=== PATIENT | male | born 1940 | race Caucasian/White ===

== ENCOUNTER 2016-05-25 | Emergency (ER) | payer MEDICARE ==
--- NOTE | 2016-05-25 09:35 | ED.PDOC ---
History of Present Illness - General Chief Complaint: Respiratory Problem Stated Complaint: chest congestion Time Seen by Provider: 05/25/16 08:55 Source: patient, RN notes reviewed, Vital Signs reviewed Exam Limitations: no limitations Additional Information: Cough congestion 3 weeks ago seen md rx antibiotics /cough medication not bettet. - History of Present Illness Timing/Duration: other - 3 weeks ago Cough Quality/Degree: dry cough Possible Cause: no prior episodes Improving Factors: nothing Worsening Factors: nothing Associated Symptoms: lightheadedness - during cough episodes Allergies/Adverse Reactions: Allergies Cephalosporins Allergy (Severe, Verified 07/26/14 13:14) Codeine Allergy (Severe, Verified 07/26/14 13:14) Penicillins Allergy (Severe, Verified 07/26/14 13:14) Home Medications: Ambulatory Orders Allopurinol [Zyloprim] 300 mg PO BID 09/27/12 Citalopram Hydrobromide 40 mg PO DAILY 09/27/12 Gabapentin 600 mg PO BID 09/27/12 Metoprolol Tartrate 25 mg PO DAILY 09/27/12 Omeprazole 20 mg PO BID 09/27/12 Tramadol HCl 50 mg PO BEDTIME 09/27/12 Chlorpheniramine Maleate [Chlor-Trimeton] 4 mg PO PRN PRN 04/20/16 Cholecalciferol [Vitamin D3] 1,000 unit PO DAILY 04/20/16 Diphenhydramine HCl [Benadryl] 25 mg PO PRN PRN 04/20/16 Gabapentin 900 mg PO BEDTIME 04/20/16 Ibuprofen 200 mg PO PRN PRN 04/20/16 Nabumetone 750 mg PO BID 04/20/16 Naproxen Sodium 220 mg PO PRN PRN 04/20/16 Potassium Gluconate 595 mg PO DAILY 04/20/16 Review of Systems - Review of Systems Constitutional: States: no symptoms reported EENTM: States: see HPI Respiratory: States: see HPI Cardiology: States: no symptoms reported Gastrointestinal/Abdominal: States: no symptoms reported Genitourinary: States: no symptoms reported Musculoskeletal: States: no symptoms reported Skin: States: no symptoms reported Neurological: States: no symptoms reported Past Medical History (General) - Patient Medical History Hx Congestive Heart Failure: No Hx Hypertension: Yes Hx Diabetes: No Hx Gastroesophageal Reflux: Yes Hx Cancer: No Hx Hepatitis C: No Hx MRSA: No Surgical History: appendectomy - Vaccination History Hx Tetanus, Diphtheria Vaccination: Yes Hx Influenza Vaccination: Yes Hx Pneumococcal Vaccination: Yes Immunizations Up to Date: Yes - Social History Hx Alcohol Use: Yes - daily/whisky Hx Substance Use: No - Female History Patient is a Female of Child Bearing Age (10 -59 yrs old): No Family Medical History - Family History Mother Family History: Unknown Hx Family Cancer: Yes - breast,esophagus Physical Exam - Physical Exam General Appearance: Alert ENT Exam: normal ENT inspection, nasal drainage Neck: non-tender, full range of motion, supple, normal inspection Respiratory: chest non-tender, lungs clear, normal breath sounds, no respiratory distress, no accessory muscle use, other - speaks in full sentences Cardiovascular/Chest: normal peripheral pulses, regular rate, rhythm, no edema, no gallop Gastrointestinal/Abdominal: normal bowel sounds, non tender, soft Extremity: normal range of motion, non-tender, normal inspection Skin Exam: normal color, warm/dry Departure - Departure Clinical Impression: Upper respiratory tract infection Time of Disposition: 09:47 Disposition: Discharge to Home or Self Care Condition: Good Departure Forms: ED Discharge - Pt. Copy, Patient Portal Self Enrollment Instructions: DI for Common Cold Referrals: Idris Espitia MD [Primary Care Provider] - 1-2 Weeks Home Medications: Ambulatory Orders Allopurinol [Zyloprim] 300 mg PO BID 09/27/12 Citalopram Hydrobromide 40 mg PO DAILY 09/27/12 Gabapentin 600 mg PO BID 09/27/12 Metoprolol Tartrate 25 mg PO DAILY 09/27/12 Omeprazole 20 mg PO BID 09/27/12 Tramadol HCl 50 mg PO BEDTIME 09/27/12 Chlorpheniramine Maleate [Chlor-Trimeton] 4 mg PO PRN PRN 04/20/16 Cholecalciferol [Vitamin D3] 1,000 unit PO DAILY 04/20/16 Diphenhydramine HCl [Benadryl] 25 mg PO PRN PRN 04/20/16 Gabapentin 900 mg PO BEDTIME 04/20/16 Ibuprofen 200 mg PO PRN PRN 04/20/16 Nabumetone 750 mg PO BID 04/20/16 Naproxen Sodium 220 mg PO PRN PRN 04/20/16 Potassium Gluconate 595 mg PO DAILY 04/20/16 Additional Instructions: RETURN TO EMERGENCY ROOM NEEDED
== END 2016-05-25 10:01 | disposition home or self-care (01) ==

== ENCOUNTER → 2016-07-08 | Outpatient (CLI) | payer MEDICARE | END | disposition home or self-care (01) | LOC: GMAH 14:57 | PROVIDERS: ATTEND Family Medicine | DX: R21 Rash and other nonspecific skin eruption (principal); I10 Essential (primary) hypertension ==

== ENCOUNTER 2016-11-27 16:06 | Observation (INO) | payer MEDICARE ==
[2016-11-27] MEDS ORDERED: SODIUM CHLORIDE 0.9% 1000ML 1,000 ML IVS ONE (16:34)
[2016-11-27] MEDS ORDERED: SODIUM CHLORIDE 0.9% (FLUSH) 10 ML SYG IV PRN ×2 (16:34→21:00)
[2016-11-27] MEDS ORDERED: PROMETHAZINE HCL INJ 12.5 MG in SODIUM CHLORIDE 0.9% 50ML 50 ML IVPB ONE (16:36)
[2016-11-27] MEDS ORDERED: MECLIZINE HCL 12.5 MG TAB PO ONE (16:36)
--- NOTE | 2016-11-27 16:39 | ED.PDOC ---
History of Present Illness - General Chief Complaint: GI Problem Stated Complaint: Nausea, vomiting Time Seen by Provider: 11/27/16 16:19 Information Source: patient, family Exam Limitations: no limitations - History of Present Illness Initial Comments: PT IS A 76 YO MALE WHO REPORTS NAUSEA, VOMITING, AND VERTIGO FOR THE PAST FEW DAYS. PT DENIES ABDOMINAL PAIN, DIARRHEA, OR CONSTIPATION. PT HAS HAD PREVIOUS EPISODES OF VERTIGO IN THE PAST. Improving Factors: immobilization, rest Worsening Factors: movement Review of Systems - Review of Systems Constitutional: States: weakness. Denies: chills, fever EENTM: Denies: blurred vision, double vision Respiratory: Denies: cough, short of breath Cardiology: Denies: chest pain, palpitations Gastrointestinal/Abdominal: States: see HPI, nausea, vomiting. Denies: constipation, diarrhea Genitourinary: Denies: dysuria, hematuria Musculoskeletal: Denies: joint pain, joint swelling Skin: Denies: change in color, lesions Neurological: Denies: headache, paresthesia Endocrine: Denies: intolerance to cold, intolerance to heat Hematologic/Lymphatic: Denies: anemia, easy bleeding Past Medical History (General) - Patient Medical History Hx Stroke: No Hx Congestive Heart Failure: No Hx Hypertension: Yes Hx Diabetes: No Hx Gastroesophageal Reflux: Yes Hx Cancer: No Hx Hepatitis C: No Hx MRSA: No Surgical History: appendectomy, other - Vaccination History Hx Tetanus, Diphtheria Vaccination: Yes Hx Influenza Vaccination: Yes - 2015 Hx Pneumococcal Vaccination: Yes - Social History Hx Tobacco Use: Yes - 04/1969 Hx Alcohol Use: Yes - daily/whisky Hx Substance Use: No Family Medical History - Family History Mother Family History: Unknown Living Status: Hx Family Cancer: Yes - breast,esophagus Physical Exam - Physical Exam General Appearance: Alert, Comfortable, No apparent distress Eyes, Ears, Nose, Throat Exam: normal ENT inspection Neck: normal inspection Respiratory: lungs clear, normal breath sounds, no respiratory distress Cardiovascular/Chest: regular rate, rhythm, no murmur Gastrointestinal/Abdominal: normal bowel sounds, non tender, soft Back Exam: normal inspection Extremity: normal range of motion, normal inspection Neurologic: alert, normal mood/affect, oriented x 3 Progress - Progress Progress: 11/27/16 17:59 PT REPORTS SOME IMPROVEMENT IN SYMPTOMS AFTER IV NS, IV PHENERGAN AND PO MECLIZINE. LAB RESULTS DISCUSSED WITH PT. PLAN TO ADMIT FOR ELECTROLYTE CORRECTION, IV ANTIEMETICS, AND IV ANTIBIOTICS. - Results/Orders Results/Orders: 11/27/16 16:34 IV Care:Saline Lock per Protoc QSHIFT Sodium Chloride 0.9% (Flush) [Saline Flush Syringe] 10 ml IV PRN PRN 11/27/16 16:51 URINE CULTURE W/COLONY COUNT Stat 11/27/16 17:48 levoFLOXacin 750MG IV [Levaquin 750MG IV] 750 mg Premix Bag 1 bag IVPB ONCE Laboratory Results - last 24 hr 11/27/16 11/27/16 11/27/16 16:34 16:34 16:35 WBC 5.3 RBC 4.17 L Hgb 14.2 Hct 41.5 L MCV 99.5 H MCH 34.0 H MCHC 34.2 RDW 14.0 Plt Count 143 MPV 7.3 L Absolute Neuts (auto) 4.10 Absolute Lymphs (auto) 0.40 L Absolute Monos (auto) 0.70 Absolute Eos (auto) 0.10 Absolute Basos (auto) 0.00 Neutrophils % 77.8 Lymphocytes % 8.0 L Monocytes % 12.5 H Eosinophils % 1.1 Basophils % 0.6 Sodium 126 L Potassium 4.3 Chloride 90 L Carbon Dioxide 28 Anion Gap 12.3 BUN 12 Creatinine 1.07 BUN/Creatinine Ratio 11.2 Random Glucose 119 H Serum Osmolality 254.3 L* Calcium 9.2 Total Bilirubin 0.9 Direct Bilirubin 0.2 Indirect Bilirubin 0.7 AST 25 ALT 22 Alkaline Phosphatase 64 Serum Total Protein 6.7 Albumin 3.7 Lipase 21 L Urine Color Urine Appearance Urine pH Ur Specific [place] Urine Protein Urine Glucose (UA) Urine Ketones Urine Blood Urine Nitrite Urine Bilirubin Urine Urobilinogen Ur Leukocyte Esterase Urine RBC Urine WBC Ur Epithelial Cells Urine Bacteria 11/27/16 16:51 WBC RBC Hgb Hct MCV MCH MCHC RDW Plt Count MPV Absolute Neuts (auto) Absolute Lymphs (auto) Absolute Monos (auto) Absolute Eos (auto) Absolute Basos (auto) Neutrophils % Lymphocytes % Monocytes % Eosinophils % Basophils % Sodium Potassium Chloride Carbon Dioxide Anion Gap BUN Creatinine BUN/Creatinine Ratio Random Glucose Serum Osmolality Calcium Total Bilirubin Direct Bilirubin Indirect Bilirubin AST ALT Alkaline Phosphatase Serum Total Protein Albumin Lipase Urine Color Yellow Urine Appearance Clear Urine pH 7.0 Ur Specific [place] 1.020 Urine Protein Trace Urine Glucose (UA) Negative Urine Ketones Negative Urine Blood Negative Urine Nitrite Negative Urine Bilirubin Negative Urine Urobilinogen 1.0 Ur Leukocyte Esterase Trace H Urine RBC 1-3 Urine WBC 20-30 H Ur Epithelial Cells 0-1 Urine Bacteria 1+ Departure - Departure Clinical Impression: Urinary tract infection, Nausea & vomiting, Vertigo, Hyponatremia with decreased serum osmolality Time of Disposition: 18:02 Disposition: Admit Patient Condition: Fair Departure Forms: ED Discharge - Pt. Copy, Patient Portal Self Enrollment Referrals: Idris Espitia MD [Primary Care Provider] - 1-2 Weeks Home Medications: Ambulatory Orders Allopurinol [Zyloprim] 600 mg PO DAILY 09/27/12 Citalopram Hydrobromide 40 mg PO DAILY 09/27/12 Gabapentin 600 mg PO BID 09/27/12 Metoprolol Tartrate 50 mg PO DAILY 09/27/12 Omeprazole 20 mg PO BID 09/27/12 Chlorpheniramine Maleate [Chlor-Trimeton] 4 mg PO PRN PRN 04/20/16 Cholecalciferol [Vitamin D3] 1,000 unit PO DAILY 04/20/16 Diphenhydramine HCl [Benadryl] 25 mg PO PRN PRN 04/20/16 Gabapentin 600 mg PO ,12 04/20/16 Ibuprofen 200 mg PO TID PRN 04/20/16 Nabumetone 750 mg PO BID 04/20/16 Naproxen Sodium 220 mg PO DAILY 04/20/16 Albuterol Sulfate Nebs [Proventil Nebs] 2.5 mg INH QID PRN 11/27/16 Gabapentin 900 mg PO BEDTIME 11/27/16 Potassium Chloride [K-Tab] 8 meq PO DAILY 11/27/16 Decision To Admit - Decistion To Admit Decision to Admit Reason: Admit from ER Decision to Admit Date: 11/27/16 Decision to Admit Time: 18:02
[2016-11-27] MEDS ORDERED: PROMETHAZINE HCL INJ 25 MG/ML VIAL ONE (16:43)
[2016-11-27] MEDS ORDERED: SODIUM CHLORIDE 0.9% 50ML 50 ML ONE (16:44)
[2016-11-27] MEDS ORDERED: levoFLOXacin 750MG IV 750 MG in PREMIX BAG 1 BAG IVPB ONE (17:48)
--- NOTE | 2016-11-27 20:28 | HP ---
SUPERVISING PHYSICIAN: Sulaiman Morgan MD CHIEF COMPLAINT: Nausea and vomiting. HISTORY OF PRESENT ILLNESS: Mr. Hartley is a 76 year-old male patient who presented to the Emergency Department complaining of nausea and vomiting and vertigo for the last several days. He notes he has been having some dizziness on and off for the last month. He denied any abdominal pain, diarrhea or constipation. Laboratory studies were completed and white count was 5.3 with hemoglobin of 14.2 and hematocrit 41.5 with a platelet count of 143 ,000, differential within normal limits. Chemistries showed a moderate hyponatremia with a sodium of 126, potassium normal, serum osmolality 254. Liver functions showed to be within normal limits. Lipase was 21. Urinalysis showed 1+ bacteria on microscopic with 20 to 30 WBCs, 0 to 1 epithelioid with trace of leukoesterase on dipstick. The patient was given Meclizine and Phenergan for his nausea and dizziness and given that he had an obvious urinary tract infection he was started on Levaquin after which he was started on normal saline for replacement of his sodium. Dr. Bishop requested the patient be placed in observation overnight for close monitoring and continued treatment of the hyponatremia as well as neurological checks given that he was having some dizziness on admission. The patient was placed in observation in stable condition. PAST MEDICAL HISTORY: 1. Asthma. 2. Chronic lower back pain. 3. Depression. 4. Hypertension. 5. Benign prostatic hypertrophy. 6. History of alcoholism in the past. PAST SURGICAL HISTORY: 1. Appendectomy. 2. Hemorrhoidectomy. 3. Transurethral resection of the prostate.. 4. Right rotator cuff repair. 5. Lower and upper back surgeries. 6. Right knee replacement. CURRENT MEDICATIONS: Please see updated list of verified medications but on admission the patient's list of medications included: 1. Toprol-XL 50 mg daily. 2. Tramadol 50 mg every 6 hours p.r.n.. 3. Zocor 20 mg at bedtime. 4. Gabapentin 600 mg twice a day. 5. Potassium chloride 8 mEq daily. 6. Naprosyn 320 mg daily. 7. Gabapentin 900 mg at bedtime. 8. Albuterol nebulizer 2.5 mg inhaled q.i.d. as needed. 9. Citalopram; 40 mg daily. 10. Vitamin D3, 1000 units daily. 11. Benadryl 25 mg as needed. 12. Crotamiton 4 mg as needed. 13. Allopurinol 600 mg daily. 14. Nabumetone 750 mg twice a day. 15. Ibuprofen 200 mg daily. 16. Omeprazole 20 mg daily. 17. Lisinopril 20 mg daily. 18. Chlorthalidone 25 mg daily. ALLERGIES: CEPHALOSPORIN, CODEINE, PENICILLINS, TETANUS TOXOID FAMILY HISTORY: Father and mother at age 94, father with complications of Alzheimer's, mother from skin cancers and complications of breast cancer. SOCIAL HISTORY: The patient was a smoker but quit in 1968. He notes that he has had a history of alcoholism in the past and currently does drink but not every day. He apparently drinks 2 drinks of history when he does, at least 3 days a week. 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 He lives in [place] and is . REVIEW OF SYSTEMS: CONSTITUTIONAL: Notes he has had some weakness but denies fevers, chills. HEENT: Denies any recent blurred vision, double vision, significant headaches. RESPIRATORY: History of asthma and some shortness of breath but no cough or worsening of his asthma. He has had some exertional dyspnea that has been followed by Dr. Berg. CARDIOVASCULAR: Denies any chest pain or palpitations. GASTROINTESTINAL: As noted in history of present illness, nausea and vomiting but denies constipation or diarrhea. GENITOURINARY: Denies dysuria or hematuria. NEUROLOGICAL: Denies any headaches or paresthesia but as per history of present illness has been having some vertigo with position changes. PHYSICAL EXAMINATION: VITAL SIGNS: Blood pressure 158/83, respirations 18, saturation 95% on room air. Afebrile at 98.8 with pulse of 73. Admission weight 97.5 kg. GENERAL: The patient appears to be comfortable and in no acute distress. He is alert and oriented x3. HEENT: Right tympanic membrane is occluded by cerumen. Left tympanic membrane is clear. Oropharynx is pink and moist without any lesions. NECK: Supple, full range of motion. No jugular venous distention.. Non-tender. CARDIOVASCULAR: Regular rate and rhythm without any appreciable murmurs, rubs , or gallops. ABDOMEN: Non-tender, partial small-bowels but obese. EXTREMITIES: No cyanosis, clubbing, or edema. NEUROLOGIC: He is alert and oriented x3. Facial features are symmetrical. Extraocular movements are within normal limits. There is no notable nystagmus. There is no discernible localized neuromotor deficits. LABORATORY: CBC showed a white count of 5.3 with hemoglobin of 14.2, hematocrit 41.5, platelet count 143,000, differential showed to be within normal limits Chemistries showed a hyponatremia with a sodium of 126, potassium 4.3, BUN 12, creatinine 1.07, glucose 119, osmolality 254, calcium 9.2. Liver functions showed to be within normal limits. Lipase within normal limits at 21. Urinalysis showed trace of leukoesterase on dipstick with microscopic revealing 1 to 3 RBCs, 20 to 30 WBCs with 1 epithelial cell and 1+ bacteria. MICROBIOLOGY: Urine culture, clean-cut specimen is pending. RADIOLOGY: There are no radiographic studies for review on admission. ASSESSMENT: 1. Nausea and vomiting secondary to vertigo with patient having chronic problems with ongoing dizziness and vertigo being followed by Dr. Espitia, his primary care physician, as well as Dr. Berg with Cardiology. Possibly gets some exacerbation from hyponatremia and underlying urinary tract infection. 2. Urinary tract infection with culture pending, possibly contributing to some nausea and vomiting. 3. Hyponatremia, moderate, secondary to nausea and vomiting with some contributing factors to oral medication regimen with Chlorthalidone with a low serum osmolality. 4. Hypertension. 5. History of benign prostatic hypertrophy having previously had a transurethral resection of prostate with no significant history of previous urinary tract infection. 6. History of asthma, currently on bronchodilator therapy with albuterol. 7. Chronic pruritus, unknown etiology and currently followed by dermatology through Dr. Espitia's office. . 8. Major depressive disorder on antidepressants. 9. History of alcoholism with patient admitting to drinking at least 3 days a week. PLAN: The patient will be placed in observation tonight for treatment of underlying hyponatremia and initiation of antibiotic therapy for the urinary tract infection with cultures pending. He was given Levaquin initially in the Emergency Department as he is allergic to cephalosporins and penicillins. We will continue with antibiotic therapy pending final culture results in anticipation of discharging tomorrow if clinically stable. In regards to the hyponatremia, he did receive normal saline in the Emergency Department and this will be continued tonight with some potassium with close monitoring and neurological checks every 6 hours and repeat laboratory studies in the morning to include CBC and BMP. Anticipate discharge tomorrow after repeat laboratory studies and further clinical evaluation. Once the patient is clinically stable he will need close clinical followup with Dr. Espitia in regards to the ongoing vertigo and possible medication regimen modification as he does take Chlorthalidone which could be contributing to his hyponatremia. In regards to his dizziness, we will treat this with meclizine and his nausea with Phenergan and Zofran as needed. Again, anticipate discharge tomorrow. Until then, we will continue to monitor the patient closely and treat appropriately. #[id number] MTDD
[2016-11-27] MEDS ORDERED: IV SET AND CAP CHANGE INJ INJ SCH (21:00)
[2016-11-27] MEDS ORDERED: MECLIZINE HCL 12.5 MG TAB PO PRN (21:03)
[2016-11-27] MEDS ORDERED: KCL 20 MEQ/NS 1,000 ML IVS PRN (21:05)
[2016-11-27] MEDS ORDERED: ACETAMINOPHEN 325 MG TAB PO PRN (21:05)
[2016-11-27] MEDS ORDERED: ALBUTEROL SULFATE 2.5 MG/3 ML VIAL NEB PRN (21:06)
[2016-11-27] MEDS ORDERED: OMEPRAZOLE CAP 20 MG CAP PO SCH (21:30)
[2016-11-27] MEDS ORDERED: GABAPENTIN 300 MG CAP PO SCH (21:30)
[2016-11-27] MEDS: NABUMETONE 750 MG PO SCH (21:41)
[2016-11-27] MEDS: NAPROXEN SODIUM 220 MG TAB PO SCH (21:51)
[2016-11-27] MEDS ORDERED: diphenhydrAMINE HCL 25 MG CAP PO PRN ×2 (23:23→23:31)
[2016-11-27] MEDS ORDERED: traMADol HCL 50 MG TAB PO PRN (23:23)
[2016-11-27] MEDS ORDERED: tiZANidine 4 MG TAB ONE (23:48)
[2016-11-28 05:48] VITALS: TEMP 97.6
[2016-11-28] MEDS ORDERED: CHOLECALCIFEROL 2,000 IU TAB PO ONE (07:54)
[2016-11-28] MEDS ORDERED: levoFLOXacin 500MG IV 100 ML IVPB ONE (07:56)
[2016-11-28] MEDS ORDERED: GABAPENTIN 300 MG CAP PO SCH ×2 (08:00→21:00)
[2016-11-28] MEDS ORDERED: POTASSIUM CHLORIDE 8 MEQ TAB PO SCH (08:00)
[2016-11-28] MEDS ORDERED: METOPROLOL TARTRATE 50 MG TAB PO SCH (08:00)
[2016-11-28] MEDS ORDERED: IBUPROFEN 200 MG TAB PO PRN (08:30)
[2016-11-28] MEDS: NABUMETONE 750 MG PO SCH (08:51)
[2016-11-28] MEDS: NAPROXEN SODIUM 220 MG TAB PO SCH (08:52)
[2016-11-28] MEDS ORDERED: ALLOPURINOL 300 MG TAB PO SCH (09:00)
[2016-11-28] MEDS ORDERED: CHOLECALCIFEROL 2,000 IU TAB PO SCH (09:00)
[2016-11-28] MEDS ORDERED: CITALOPRAM HBR 20 MG TAB PO SCH (09:00)
[2016-11-28] MEDS ORDERED: levoFLOXacin 500MG IV 500 MG in PREMIX BAG 1 BAG IVPB SCH (09:30)
[2016-11-28 11:31] VITALS: BP 154/72; O2SAT 98
[2016-11-28] MEDS ORDERED: OMEPRAZOLE CAP 20 MG CAP PO SCH (17:00)
[2016-11-28] MEDS ORDERED: SIMVASTATIN 20 MG TAB PO SCH (21:00)
[2016-11-28] MEDS ORDERED: ENOXAPARIN SODIUM 40 MG/0.4 ML SYG SUBCU SCH (21:09)
--- NOTE | 2016-11-29 20:50 | DS ---
SUPERVISING PHYSICIAN: Sulaiman Morgan M.D. DISCHARGE DIAGNOSIS: 1. Nausea and vomiting secondary to vertigo with patient having chronic problems with ongoing dizziness and vertigo being followed by Dr. Espitia, his primary care physician, as well as Dr. Berg with Cardiology. Possibly gets some exacerbation from hyponatremia and underlying urinary tract infection. 2. Urinary tract infection with culture pending, possibly contributing to some nausea and vomiting. 3. Hyponatremia, moderate, secondary to nausea and vomiting with some contributing factors to oral medication regimen with Chlorthalidone with a low serum osmolality. 4. Hypertension. 5. History of benign prostatic hypertrophy having previously had a transurethral resection of prostate with no significant history of previous urinary tract infection. 6. History of asthma, currently on bronchodilator therapy with albuterol. 7. Chronic pruritus, unknown etiology and currently followed by dermatology through Dr. Espitia's office. . 8. Major depressive disorder on antidepressants. 9. History of alcoholism with patient admitting to drinking at least 3 days a week. HISTORY OF PRESENT ILLNESS: Mr. Hartley is a 76 year-old male patient who presented to the Emergency Department complaining of nausea and vomiting and vertigo for the last several days. He notes he has been having some dizziness on and off for the last month. He denied any abdominal pain, diarrhea or constipation. Laboratory studies were completed and white count was 5.3 with hemoglobin of 14.2 and hematocrit 41.5 with a platelet count of 143 ,000, differential within normal limits. Chemistries showed a moderate hyponatremia with a sodium of 126, potassium normal, serum osmolality 254. Liver functions showed to be within normal limits. Lipase was 21. Urinalysis showed 1+ bacteria on microscopic with 20 to 30 WBCs, 0 to 1 epithelioid with trace of leukocyte esterase on dipstick. The patient was given Meclizine and Phenergan for his nausea and dizziness and given that he had an obvious urinary tract infection he was started on Levaquin after which he was started on normal saline for replacement of his sodium. Dr. Bishop requested the patient be placed in observation overnight for close monitoring and continued treatment of the hyponatremia as well as frequent neurological checks given that he was having some dizziness on admission. The patient was placed in observation in stable condition. LABORATORY: White count on admission was 5.3, at discharge was 4.8. Hemoglobin and hematocrit were stable at 13.0 and 38.0. Platelet count at discharge was 117,000. Differential showed to be within normal limits. Chemistries on admission showed low sodium at 126, after IV fluids it had increased only slightly but the patient was asymptomatic with sodium at 127 at discharge. Potassium was 4.3. BUN was 10, creatinine 0.95, serum osmolality remained low at 254.3, calcium was normal at 8.8. Albumin was normal at 3.7. Liver functions all showed to be within normal limits. Lipase was within normal limits at 21. Urinalysis microscopically revealed 1 to 3 RBCs, 20 WBCs, zero epithelials with 1+ bacteria. MICROBIOLOGY: Urine culture is pending at discharge with the patient having been placed on continued Levaquin at discharge. RADIOLOGY: There were no radiographic studies completed on admission. HOSPITAL COURSE: Mr. Hartley was placed in Observation as noted in his History of Present Illness for hyponatremia, dizziness and possibly underlying urinary tract infection. He was started on Levaquin and was given 2 doses. He had no recurrence of his nausea or vomiting or dizziness after initiation of IV therapy. He felt clinically well enough to continue with outpatient treatment plan and to have close clinical followup with Dr. Espitia. PLAN: Mr. Hartley was discharged on 11/28/16 with instructions to followup with Dr. Espitia in the clinic, and to call Dr. Espitia's office on Wednesday to schedule an appointment. He is to restrict his fluids daily to less than 1800 mL per 24 hours period until he was seen in followup with Dr. Espitia. He will need a repeat BMP to recheck his sodium level as well as close followup in regards to treatment of possible underlying urinary tract infection as at discharge his cultures were pending. He was told to hold his Chlorthalidone, his diuretic, which could result in hyponatremia until he was seen in followup. He was instructed to try to limit daily alcohol consumption, if not stop altogether, and to take his antibiotics as directed starting on 11/29/16. He was cautioned to use slow movements when changing positions to prevent vertigo, dizziness and possible falls. He is to return to the hospital if his condition failed to improve or other concerning symptoms. At discharge, new prescriptions included: 1. Levaquin 500 mg, #5, no refills. Diet at discharge is regular diet as tolerated. Activity again as tolerated. Use caution when changing positions as he was continuing to have some dizziness. Condition at discharge was stable and improved. #[id number] TSDM
== END 2016-11-28 11:15 | disposition home or self-care (01) ==
LOC: ER 16:06 → MS 20:15
PROVIDERS: ADMIT Nurse Practitioner Family; ATTEND Nurse Practitioner Family
DX: E87.1 Hypo-osmolality and hyponatremia (principal); N39.0 Urinary tract infection, site not specified; R11.2 Nausea with vomiting, unspecified; R42 Dizziness and giddiness; I10 Essential (primary) hypertension; N40.0 Benign prostatic hyperplasia without lower urinary tract symptoms; J45.909 Unspecified asthma, uncomplicated; L29.9 Pruritus, unspecified; F32.9 Major depressive disorder, single episode, unspecified; F10.20 Alcohol dependence, uncomplicated; G89.29 Other chronic pain; M54.5 Low back pain; Z79.1 Long term (current) use of non-steroidal anti-inflammatories (NSAID); Z79.899 Other long term (current) drug therapy; Z88.0 Allergy status to penicillin; Z88.3 Allergy status to other anti-infective agents; Z88.6 Allergy status to analgesic agent; Z88.7 Allergy status to serum and vaccine; Z90.49 Acquired absence of other specified parts of digestive tract; Z96.651 Presence of right artificial knee joint; Z81.8 Family history of other mental and behavioral disorders; Z80.3 Family history of malignant neoplasm of breast; Z80.8 Family history of malignant neoplasm of other organs or systems
CPT/HCPCS: 36415 ×2; 80048 ×2; 80076; 81001; 83690; 85025 ×2; 87086; 94760; 96361; 96365; 96366; 96367; 96376; 97116; 97162; 99284; A4216; G0378; G8978; G8979; G8980; J1956 ×2; J2550; J3480; J7030; Q0163

== ENCOUNTER → 2017-03-01 | Outpatient (CLI) | payer MEDICARE ==
--- NOTE | 2017-03-01 11:13 | US ---
Study: Bilateral Carotid Artery Doppler Sonogram. Indication: VERTIGO Technique: Multiplanar grayscale and Doppler sonographic images of the bilateral carotid arteries and vertebral arteries were obtained. Findings: The bilateral carotid arteries demonstrate mild intimal thickening and calcified plaque. Analysis of duplex waveforms and flow velocities indicate no hemodynamically significant stenosis. The vertebral arteries demonstrate antegrade flow. Impression: Mild atherosclerosis of the bilateral carotid arteries without hemodynamically significant stenosis. Electronically signed by: Edgardo Hernandez MD 03/01/2017 11:12 AM CDT
== END | disposition home or self-care (01) ==
LOC: US 08:15
PROVIDERS: ATTEND Family Medicine
DX: H81.49 Vertigo of central origin, unspecified ear (principal)

== ENCOUNTER → 2017-04-12 | Outpatient (CLI) | payer MEDICARE ==
--- NOTE | 2017-04-12 18:44 | RAD ---
EXAM DESCRIPTION: Knee,Left Complete CLINICAL HISTORY: KNEE PAIN COMPARISON: March 19, 2016 FINDINGS: 4 standing views of the left knee show moderate narrowing of the medial tibiofemoral compartment with mild joint line osteophytes that appears worsened compared to previous exam. Mild lateral tibiofemoral compartment joint line osteophytes are seen. There are mild posterior superior and inferior osteophytes of the patella. Small suprapatellar joint effusion is seen. IMPRESSION: Moderate to severe osteoarthritic changes of the left medial tibiofemoral compartment appears worsened compared to previous exam. Mild osteoarthritic changes of the lateral tibiofemoral compartment and patellofemoral compartment are seen. Small joint effusion. Electronically signed by: Finn Luna MD 04/12/2017 6:42 PM [facility]
--- NOTE | 2017-04-13 07:59 | RAD ---
EXAM DESCRIPTION: Pelvis CLINICAL HISTORY: 77 years Male, HIP PAIN COMPARISON: March 19, 2016 FINDINGS: Examination the pelvis demonstrates moderately advanced mid and lower lumbar degenerative changes with tilting of the spine towards the left. Bilateral modest hip degenerative arthropathy with slightly greater narrowing of the joint space on the right than the left is evident. No fracture or dislocation or pelvic abnormality noted. No soft tissue masses or unusual calculi noted. IMPRESSION: Moderately advanced degenerative spine disease with milder degenerative hip disease little changed from previous years study. Electronically signed by: Quoc Samaniego MD 04/13/2017 7:57 AM [facility]
== END | disposition home or self-care (01) ==
LOC: RAD 08:46
PROVIDERS: ATTEND Orthopaedic Surgery
DX: M25.562 Pain in left knee (principal); M25.552 Pain in left hip

== ENCOUNTER → 2017-04-19 | Outpatient (CLI) | payer OTHER | END | disposition home or self-care (01) | LOC: LAB.O 11:23 | PROVIDERS: ATTEND Orthopaedic Surgery | DX: Z01.818 Encounter for other preprocedural examination (principal) ==

== ENCOUNTER 2017-05-04 05:56 | Inpatient (IN) | payer OTHER ==
--- NOTE | 2017-05-03 09:19 | HP ---
CHIEF COMPLAINT: Left knee pain. HISTORY OF PRESENT ILLNESS: Mr. Hartley is a 77-year-old with a history of pain in both knees that has been going on for several years. He has had right total knee replacement. He has had knee arthroscopy as well as multiple injections on the left side, however, has failed to gain relief. Because of his ongoing pain and failure of relief with conservative measures, he has requested operative intervention. Given the degree of arthritis that he has, his only reasonable option at this point would be a total knee arthroplasty. After discussing the risks, benefits and alternatives to that, the patient has given informed consent. PAST SURGICAL HISTORY: 1. Knee arthroscopy. 2. Cervical fusion. MEDICATIONS: 1. Omeprazole. 2. Metoprolol. 3. Allopurinol. 4. Gabapentin. 5. Nabumetone. 6. Citalopram. ALLERGIES: PENICILLIN, CEPHALOSPORINS, CODEINE. CODE STATUS: Full code. IMMUNIZATIONS: Up to date. SOCIAL HISTORY: The patient does not smoke or use any illicit drugs. He does drink on occasion. FAMILY HISTORY: None pertinent to today's complaint. REVIEW OF SYSTEMS: Negative except as indicated in the History of Present Illness. PHYSICAL EXAMINATION: VITAL SIGNS: Blood pressure 109/54. Pulse 71. Height 6'. Weight 211. MENTAL STATUS: The patient is awake, alert, and is able to give a good history and participate in the physical. The patient is oriented to person, place and time. SKIN: Normal tone and turgor. HEENT: Normocephalic, atraumatic. Pupils equal, round and reactive. Mucosal membranes are moist. NECK: Normal range of motion. No thyromegaly, no lymphadenopathy. CHEST: Normal respiratory excursion. CARDIAC: Regular rate and rhythm. No murmurs, rubs or gallops. MUSCULOSKELETAL: Bilateral upper extremities show full active range of motion without pain. He has intact sensation in the extremities and they are warm and well perfused. He has no deformity and no crepitus with range of motion. The right lower extremity shows full range of motion of the hip. He has full extension of the knee and flexion to about 110 degrees. The extremity is warm and well perfused and there is no significant laxity. The left lower extremity shows full range of motion of the hip. He has full extension of the knee and flexion to about 120 degrees. He has crepitus throughout the range of motion. Sensation is intact. It is warm and well perfused. He does have severe pain with palpation along the medial joint-line as well as lateral joint-line. He does have mild effusion. IMAGING: X-rays show advanced arthritis of the knee. ASSESSMENT: 1. Osteoarthritis. PLAN: The plan at this point is for total knee arthroplasty. We have discussed the risks, benefits, and alternatives to that and the patient has given informed consent. #[id number] [facility]
[2017-05-04] MEDS ORDERED: MORPHINE SULFATE *EPIDURAL* 0.5 MG/ML VIAL ONE (06:04)
[2017-05-04] MEDS ORDERED: fentaNYL CITRATE INJ 50 MCG/ML AMP ONE (06:05)
[2017-05-04] MEDS ORDERED: LACTATED RINGERS 1,000 ML ONE ×2 (06:05→06:06)
[2017-05-04] MEDS ORDERED: MIDAZOLAM INJ 2 MG/2 ML VIAL ONE (06:05)
[2017-05-04] MEDS ORDERED: VANCOMYCIN HCL INJ 1,000 MG VIAL IVPB ONE ×3 (06:06→17:17)
[2017-05-04] MEDS ORDERED: SODIUM CHLORIDE 0.9% 250ML 250 ML ONE ×3 (06:06→17:16)
[2017-05-04] MEDS ORDERED: TRANEXAMIC ACID 1,000 MG/10 ML VIAL ONE ×2 (06:13→06:14)
[2017-05-04] MEDS ORDERED: SODIUM CHLORIDE 0.9% 100ML 100 ML IVPB ONE (06:14)
[2017-05-04] MEDS ORDERED: ACETAMINOPHEN IV 1000MG 100 ML ONE (06:23)
[2017-05-04] MEDS ORDERED: BUPIVACAINE 0.25% W/EPI 50 ML VIAL INJ ONE (06:38)
[2017-05-04] MEDS ORDERED: DEX 5% W/NACL 0.45% 1000ML 1,000 ML IVS PRN (06:44)
[2017-05-04] MEDS ORDERED: CYCLOBENZAPRINE HCL 10 MG TAB PO PRN (06:44)
[2017-05-04] MEDS ORDERED: ACETAMINOPHEN 500 MG TAB PO PRN (06:44)
[2017-05-04] MEDS ORDERED: traMADol HCL 50 MG TAB PO PRN (06:44)
[2017-05-04] MEDS ORDERED: BENZOCAINE-MENTH LOZ (CEPACOL) 1 EA LOZ MT PRN (06:44)
[2017-05-04] MEDS ORDERED: ACETAMINOPHEN 325 MG TAB PO PRN (06:44)
[2017-05-04] MEDS ORDERED: MORPHINE SULFATE INJ 10 MG/ML VIAL IM PRN (06:44)
[2017-05-04] MEDS ORDERED: ONDANSETRON INJ 4 MG/2 ML VIAL IV PRN (06:44)
[2017-05-04] MEDS ORDERED: ZOLPIDEM TARTRATE 5 MG TAB PO PRN (06:44)
[2017-05-04] MEDS ORDERED: NALOXONE HCL INJ 0.4 MG/ML VIAL IV PRN (06:44)
[2017-05-04] MEDS ORDERED: ALUMINUM & MAGNESIUM HYDROXIDE 30 ML UD PO PRN (06:44)
[2017-05-04] MEDS ORDERED: TRANEXAMIC ACID INJ 1,000 MG in SODIUM CHLORIDE 0.9% 100ML 100 ML IVPB ONE (06:44)
[2017-05-04] MEDS ORDERED: BISACODYL SUPPOSITORY 10 MG PR PRN (06:44)
[2017-05-04] MEDS ORDERED: TEMAZEPAM 15 MG CAP PO PRN (06:44)
[2017-05-04] MEDS ORDERED: MAGNESIUM HYDROXIDE 30 ML UD PO PRN (06:44)
[2017-05-04] MEDS ORDERED: PROMETHAZINE HCL INJ 12.5 MG in SODIUM CHLORIDE 0.9% 50ML 50 ML IVPB PRN (06:44)
[2017-05-04] MEDS ORDERED: MORPHINE SULFATE INJ 10 MG/ML VIAL IV PRN (06:44)
[2017-05-04] MEDS ORDERED: PROMETHAZINE HCL INJ 25 MG in SODIUM CHLORIDE 0.9% 50ML 50 ML IVPB PRN (06:44)
[2017-05-04] MEDS ORDERED: MORPHINE PCA 1 MG/ML 100ML 1 BAG in PREMIX BAG 1 BAG IVPB SCH (07:00)
[2017-05-04] MEDS ORDERED: IV SET AND CAP CHANGE INJ INJ SCH (07:00)
[2017-05-04] MEDS ORDERED: GENTAMICIN SULFATE INJ 80 MG/2 ML VIAL ONE ×3 (07:08→07:12)
[2017-05-04] MEDS ORDERED: CELECOXIB 100 MG CAP PO SCH (07:30)
[2017-05-04] MEDS ORDERED: MORPHINE PCA 1 MG/ML 100 ML BAG IVPB ONE (08:47)
[2017-05-04] MEDS ORDERED: MAGNESIUM OXIDE 400 MG TAB PO SCH (09:00)
[2017-05-04] MEDS ORDERED: LIDOCAINE 1% 10 ML VIAL INJ ONE (10:00)
[2017-05-04] MEDS ORDERED: ePHEDrine SULF 50 MG/ML IV ONE (10:00)
[2017-05-04] MEDS ORDERED: ATROPINE SULFATE 0.4 MG/ML 1ML VIAL IV ONE (10:00)
[2017-05-04] MEDS ORDERED: PROPOFOL 200 MG/20 ML VIAL IV ONE (10:00)
[2017-05-04] MEDS ORDERED: diphenhydrAMINE HCL 50 MG/ML VIAL ONE (10:17)
[2017-05-04] MEDS ORDERED: diphenhydrAMINE HCL 25 MG CAP ONE (16:17)
[2017-05-04] MEDS: diphenhydrAMINE HCL 25 MG CAP PO PRN ×2 (16:20→20:13)
[2017-05-04] MEDS ORDERED: LEVALBUTEROL NEBS 0.63 MG/3 ML VIAL NEB PRN (16:48)
[2017-05-04] MEDS: CELECOXIB 100 MG CAP PO SCH (16:59)
[2017-05-04] MEDS ORDERED: SODIUM CHLORIDE 0.9% 500ML 500 ML IVS ONE (17:13)
[2017-05-04] MEDS: VANCOMYCIN HCL INJ 1,000 MG in SODIUM CHLORIDE 0.9% 250ML 250 ML IVPB SCH (17:31)
[2017-05-04] MEDS: ALBUTEROL SULFATE 2.5 MG/3 ML VIAL NEB SCH ×2 (17:49→20:32)
[2017-05-04] MEDS: SODIUM CHLORIDE 0.9% 1000ML 1,000 ML IVS PRN (18:08)
[2017-05-04] MEDS ORDERED: LORazepam 0.5 MG TAB PO PRN (19:25)
[2017-05-04] MEDS ORDERED: HYDROmorphone PCA 0.2 MG/ML 1 BAG BAG IVPB SCH (19:30)
[2017-05-04] MEDS ORDERED: SODIUM CHL 0.9% 50ML MIN-BAG+ 50 ML IVPB ONE (20:09)
[2017-05-04] MEDS ORDERED: MEROPENEM 500 MG VIAL IVPB ONE (20:10)
[2017-05-04] MEDS: HYDROcodone 5MG/APAP 325MG 1 EA TAB PO PRN (20:13)
[2017-05-04] MEDS: MEROPENEM 500 MG in SODIUM CHL 0.9% 50ML MIN-BAG+ 50 ML IVPB SCH (20:17)
--- NOTE | 2017-05-04 20:33 | CONS ---
DATE OF CONSULTATION: 05/04/17 HISTORY OF PRESENT ILLNESS: This 77 year-old white male was admitted to the hospital earlier this morning for elective surgical repair and replacement with total left knee arthroplasty being performed by Dr. Espinosa. The patient tolerated the procedure quite well. He did develop some itching in the recovery room. He has received some morphine for pain in surgery and also received Astramorph injection at the time of the anesthesia with spinal anesthesia. The patient is concerned that it might be related to the morphine, so special attention is being made to try to minimize morphine contact as continued pain relief is an effort. The patient has had worsening left knee pain unresponsive to outpatient therapy and is now requiring surgical intervention to assist with symptom control. PAST MEDICAL HISTORY: 1. The patient did have a right knee arthroplasty performed in [place] in March 2013. He had to stand up in order to urinate between 2 nurses and passed out falling forcefully on the postoperative knee with injury and opening of the wound with infection requiring significant input and therapy until it was finally able to be completely closed and functional. He does have a Iverson catheter in place after this surgery so he does not have to get up and risk falling again. 2. Past history of asthma. 3. Hypertension. PAST SURGICAL HISTORY: 1. Transurethral resection of the prostate. 2. Right knee arthroplasty performed in March 2013. 3. Appendectomy. 4. Two lumbar spine and one cervical spine surgeries. 5. Hemorrhoidectomy. 6. Fistulous tract repaired. 7. Elbow bursitis surgery. CURRENT MEDICATIONS: Please refer to nurses' notes for a list of verified home medications. ALLERGIES: CEPHALOSPORIN, CODEINE, PENICILLIN AND LACTOSE INTOLERANCE. MOST OF THE ALLERGIES TO MEDICATIONS RESULT IN A SKIN RASH WITH ITCHING HAS BEEN PRESENT FOR A LONG TIME. FAMILY HISTORY: Positive for cancer. 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 He has been a smoker in the past but quit in 1968. He has still been drinking some alcohol recently and drinks 2 to 3 drinks per day, usually 3 or 4 days a week. He lives in [place] and is . REVIEW OF SYSTEMS: No significant weight change. No fever or chills. HEENT: Unremarkable. Hearing and vision appears to be within normal limits. LUNGS: No significant shortness of breath or cough or hemoptysis. CARDIOVASCULAR: No chest pains or palpitations. GASTROINTESTINAL: Abdomen is distended and appetite has been decreasing recently. No blood in the stools. GENITOURINARY: No dysuria. EXTREMITIES: Significant pain especially in the left knee requiring surgical intervention for pain relief. NEUROLOGIC: No focal neurological deficits. He does have some wide spread pruritus on a chronic basis having seen a number of dermatologists for relief. PHYSICAL EXAMINATION: VITAL SIGNS: Afebrile, pulse 65, blood pressure 117/67, pulse oximetry 94% on 2 liters nasal cannula. Weight is 95.7 kilos on a bed scale. GENERAL: The patient is awake and alert. He is noticeably itching, especially on upper extremities and torso, and around the face. No noticeable rash is evident. The patient is a fairly good historian. HEENT: Unremarkable. NECK: Supple. CHEST: Lungs have some diminished breath sounds, otherwise clear. HEART: Tones regular without any gallops. ABDOMEN: Tight, somewhat tympanic and quite firm. The possibility of ascites to be considered and close observation necessary. EXTREMITIES: Right knee is healed now. Fairly normal size after the significant replacement about 4 years ago. Left knee is in an ice pack and will be starting on passive range of motion machine. No drainage noted on dressings. NEUROLOGIC: No focal neurological deficits. LABORATORY: Only laboratory recently placed in the chart is the urinalysis after the Iverson catheter was placed and it reveals positive nitrites, hematuria grossly noted with a brownish color and no bacteria with proteinuria present. Urine culture is obtained, results pending. The possibility of an abnormal nitrite from the hematuria must be considered, but because of the recent orthopedic procedure antibiotic coverage will be extended. ASSESSMENT: 1. Postoperative day zero total left knee arthroplasty. 2. Chronic osteoarthritis having failed outpatient therapy in the left knee and requiring surgical intervention to assist with symptom control. 3. Possible urinary tract infection with treatment extended after prosthetic surgeries have been completed. 4. Hematuria with cultures pending. 5. Mild dehydration given some IV fluid supplementation. 6. History of asthma receiving bronchodilators as needed. 7. Hypertension. 8. Chronic pruritus. Multiple medications and antibiotic allergies noted. 9. Chronic low back pain after surgeries. 10. History of depression. 11. History of benign prostatic hypertrophy post transurethral resection of the prostate with attendant side effects. 12. History of ethanol abuse to be observed closely for possible withdrawal symptoms. 13. History of recent hyponatremia with no recent electrolytes available at this time to be rechecked to assist with ongoing care. PLAN: Continue close followup. Continue with home medications. Some of the medicines have been decreased as he continues his postoperative course. He will require physical therapy under orthopedic surgical supervision until the patient is safe to be able to return home where he lives at home alone. He will be tried on Merrem antibiotics low dose 500 mg awaiting culture results at which time focal antibiotic use can be utilized if indicated. Try Benadryl for assistance of the pruritus. Stop the morphine which may be contributing to the itching rash and try Dilaudid instead with close observation. Medication nebulizers for any asthma symptoms of wheezing. Close observation and orthopedic followup to continue. #[id number] [facility] [place]
[2017-05-04] MEDS ORDERED: GABAPENTIN 400 MG CAP ONE (20:58)
[2017-05-04] MEDS ORDERED: GABAPENTIN 100 MG CAP ONE (20:58)
[2017-05-04] MEDS ORDERED: OMEPRAZOLE CAP 20 MG CAP PO SCH (21:00)
[2017-05-04] MEDS: ENOXAPARIN SODIUM 30 MG/0.3 ML SYG SUBCU SCH (21:54)
[2017-05-04] MEDS: DOCUSATE CALCIUM 240 MG CAP PO SCH (21:54)
[2017-05-04] MEDS: GABAPENTIN 300 MG CAP PO SCH (21:56)
[2017-05-04] MEDS ORDERED: diphenhydrAMINE HCL 50 MG/ML VIAL IV PRN (22:29)
[2017-05-05] MEDS ORDERED: FUROSEMIDE INJ 20 MG/2 ML VIAL IV ONE (01:08)
[2017-05-05] MEDS ORDERED: SODIUM CHL 0.9% 50ML MIN-BAG+ 50 ML IVPB ONE ×3 (01:21→19:54)
[2017-05-05] MEDS ORDERED: SODIUM CHLORIDE 0.9% 250ML 250 ML ONE (01:22)
[2017-05-05] MEDS ORDERED: MEROPENEM 500 MG VIAL IVPB ONE ×3 (01:22→19:54)
[2017-05-05] MEDS ORDERED: VANCOMYCIN HCL INJ 1,000 MG VIAL IVPB ONE (01:23)
[2017-05-05] MEDS: MEROPENEM 500 MG in SODIUM CHL 0.9% 50ML MIN-BAG+ 50 ML IVPB SCH ×3 (03:54→19:57)
[2017-05-05] MEDS: SODIUM CHLORIDE 0.9% 1000ML 1,000 ML IVS PRN (04:48)
[2017-05-05] MEDS: VANCOMYCIN HCL INJ 1,000 MG in SODIUM CHLORIDE 0.9% 250ML 250 ML IVPB SCH (06:03)
[2017-05-05] MEDS ORDERED: MAGNESIUM OXIDE 400 MG TAB ONE (07:14)
[2017-05-05] MEDS ORDERED: LISINOPRIL 10 MG TAB ONE (07:14)
[2017-05-05] MEDS: CELECOXIB 100 MG CAP PO SCH ×2 (07:23→17:18)
[2017-05-05] MEDS ORDERED: HYDROmorphone PCA 0.2 MG/ML 1 BAG BAG IVPB PRN (08:00)
--- NOTE | 2017-05-05 08:03 | OP ---
DATE OF PROCEDURE: 05/04/17 PREOPERATIVE DIAGNOSIS: 1. Osteoarthritis of the knee. POSTOPERATIVE DIAGNOSIS: 1. Osteoarthritis of the knee. PROCEDURE: 1. Total knee arthroplasty. SURGEON: Marvin Espinosa MD. SECURITY INSTALLATION TECHNICIAN: Edson Clark CST, SA-C. ANESTHESIA: General. COMPLICATIONS: None. FINDINGS: Advanced osteoarthritis of the knee. INDICATION: Mr. Hartley has a history of severe knee pain for which he has undergone treatment. Those treatments have included injection, knee arthroscopy , anti-inflammatories and he has also attempted therapy. Unfortunately, he has failed to gain relief with these measures. Secondary to the ongoing symptoms and failure of conservative measures, he has requested operative intervention. After discussing the risks, benefits and alternatives to that, the patient has given informed consent for total knee arthroplasty. PROCEDURE: The patient was brought to the Operating Room and placed in supine position. General anesthesia was induced and the patient's leg was sterilely prepped and draped. Following prepping and draping, the distal femur was exposed and using an intramedullary guide, the distal femoral cut was made. The appropriate sized cutting block was measured, pinned into place, and the anterior, posterior, and chamfer cuts were made. The ACL was transected and the tibia was subluxed. Both the medial and lateral menisci were removed. An intramedullary guide was used to make the proximal tibial cut. The appropriate sized base plate was placed and a trial polyethylene was placed. The trial femur was placed, the knee was reduced, and the knee was taken through a range of motion. The knee was stable in anterior, posterior, varus and valgus stress. The patella tracked anatomically without evidence of subluxation or dislocation. After trialing, the trial components were removed and the bony surfaces were thoroughly irrigated with saline. Following irrigation, the surfaces were dried and the final components were cemented into place. The excess cement was removed and the remaining cement was allowed to cure. The knee was again taken through a range of motion to confirm stability. The wound was then irrigated with saline and closure was performed using PDS to approximate the arthrotomy followed by closure of the subcutaneous tissues with a combination of running and interrupted Monocryl sutures. Sterile dressing was placed. The patient was awoken from anesthesia and taken to Recovery. POSTOPERATIVE INSTRUCTIONS: The patient will be weight-bearing as tolerated on postoperative day 1. COMPONENTS: [employer] Triathlon knee, size 6 femur, size 5 tibia, 9 mm insert. #[id number] [facility]
[2017-05-05] MEDS: ALBUTEROL SULFATE 2.5 MG/3 ML VIAL NEB SCH ×3 (08:32→21:59)
[2017-05-05] MEDS: CITALOPRAM HBR 20 MG TAB PO SCH (08:39)
[2017-05-05] MEDS: LISINOPRIL 10 MG TAB PO SCH (08:39)
[2017-05-05] MEDS: MAGNESIUM OXIDE 400 MG TAB PO SCH (08:40)
[2017-05-05] MEDS: METOPROLOL SUCCINATE XL 50 MG TAB PO SCH (08:40)
[2017-05-05] MEDS: OMEPRAZOLE CAP 20 MG CAP PO SCH ×2 (08:41→15:49)
[2017-05-05] MEDS: ENOXAPARIN SODIUM 30 MG/0.3 ML SYG SUBCU SCH ×2 (08:41→21:00)
--- NOTE | 2017-05-05 08:43 | RAD ---
EXAM DESCRIPTION: Knee,Left 2 or More Views CLINICAL HISTORY: 77 years, Male, TKA COMPARISON: April 12, 2017 TECHNIQUE: Two views of the left knee FINDINGS: Postoperative views of the knee demonstrate placement of a total knee prosthesis with metallic femoral and tibial components well applied to the underlying bony matrix. A lucent patellar articular surface is not identified. Intra-articular air from the recent surgery is noted. Small amount of opaque material at the lateral aspect of the joint likely represents extruded cement. IMPRESSION: 1. Satisfactory left total knee replacement. Electronically signed by: Quoc Samaniego MD 05/05/2017 8:42 AM [facility]
[2017-05-05] MEDS: GABAPENTIN 300 MG CAP PO SCH ×3 (08:50→20:59)
[2017-05-05] MEDS: SODIUM CHLORIDE 0.9% (FLUSH) 10 ML SYG IV PRN (19:57)
--- NOTE | 2017-05-05 20:36 | PCM.CORE ---
Physician DVT/VTE - Nurse DVT Assessment & Total Each Risk Factor Represents 5 Points: Elective Arthtroplasty Each Risk Factor Represents 3 Points: Age over 75 years Each Risk Factor Represents 1 Point: Medical PT at Bed Rest Each Risk Factor is 1 Point: Obesity (BMI >25) DVT Assessment Score: 10 - 5 or more Very High Risk Treatments: Early Ambulation *, Sequential Compression Device Pharmacological: Enoxaparin 30mg SQ BID
[2017-05-05] MEDS: DOCUSATE CALCIUM 240 MG CAP PO SCH (20:59)
[2017-05-05] MEDS: ALLOPURINOL 300 MG TAB PO SCH (21:00)
[2017-05-05] MEDS: HYDROcodone 5MG/APAP 325MG 1 EA TAB PO PRN (21:00)
--- NOTE | 2017-05-05 22:04 | PN ---
DATE: 05/05/17 SUPERVISING PHYSICIAN: Sulaiman Morgan M.D. SUBJECTIVE: The patient is sitting in the bedside chair with his legs up. He has had good pain control. He does continue to have some itching. He has been switched to Dilaudid from the morphine which is helping some. He has had no nausea or vomiting or abdominal pains. He remains afebrile. OBJECTIVE: VITAL SIGNS: Temperature 97.8, pulse 74, blood pressure 148/75, respirations 18, satting 96% on room air. I's and O's are not well measured secondary to missed voids. Weight is 95.7 kg. CHEST: Lungs are clear to auscultation, slightly diminished towards the bases. HEART: Regular rate and rhythm. ABDOMEN: Obese but soft, non-tender with positive bowel sounds. EXTREMITIES: Left knee has a bulky dressing in place. Pulses distally are strong with capillary refill brisk. NEUROLOGIC: He is alert and oriented times three. LABORATORY: Postoperative H&H is 13.2 and 39.8. MICROBIOLOGY: Urine culture preliminary at 24 hours shows no growth. RADIOLOGY: No additional radiographic studies. ASSESSMENT: 1. Postoperative day 1 total left knee arthroplasty having failed to respond to outpatient treatment therapy. 2. Chronic osteoarthritis having failed to respond to outpatient treatment of the left knee requiring surgical intervention for symptom control. 3. Questionable urinary tract infection with treatment extended after prosthetic surgery having been completed with current culture results showing no growth with the patient being on Meropenem. 4. Hematuria with cultures pending showing preliminary no growth. 5. Mild dehydration given some IV supplementation postoperatively showing some improvement possibly resulting in concentrated urine. 6. History of asthma on bronchodilators as needed. 7. Hypertension. 8. Chronic pruritus on multiple medications. Antibiotic allergies noted. 9. Chronic lower back pain after surgeries. 10. History of depression. 11. History of benign prostatic hypertrophy post transurethral resection of the prostate. 12. History of ethanol abuse in the past needing close observation for any withdrawal symptoms. 13. History of recent hyponatremia with no electrolytes available at time of admission to be rechecked periodically during Acute Care phase. PLAN: Will continue to monitor the patient closely. At this point, he is not showing any overt signs of any alcohol withdrawal symptoms. Will continue with Meropenem for an additional 24 hours until culture results show final results and if those are showing no growth, will stop the antibiotics. Will continue to follow along as he does continue with his physical therapy. Will continue with Benadryl as needed for the itching and continue to encourage good bronchial hygiene and nebulizers as needed for any wheezing. Will continue to follow the patient until discharge and monitor closely. #[id number] [facility]
[2017-05-06] MEDS ORDERED: SODIUM CHL 0.9% 50ML MIN-BAG+ 50 ML IVPB ONE ×3 (01:56→19:35)
[2017-05-06] MEDS ORDERED: MEROPENEM 500 MG VIAL IVPB ONE ×3 (01:56→19:36)
[2017-05-06] MEDS: MEROPENEM 500 MG in SODIUM CHL 0.9% 50ML MIN-BAG+ 50 ML IVPB SCH ×3 (03:46→19:46)
[2017-05-06] MEDS: SODIUM CHLORIDE 0.9% (FLUSH) 10 ML SYG IV PRN (03:47)
[2017-05-06] MEDS: OMEPRAZOLE CAP 20 MG CAP PO SCH ×2 (05:54→15:45)
[2017-05-06] MEDS: HYDROcodone 5MG/APAP 325MG 1 EA TAB PO PRN ×2 (05:54→11:31)
[2017-05-06] MEDS: CELECOXIB 100 MG CAP PO SCH ×2 (07:50→16:46)
[2017-05-06] MEDS: MAGNESIUM OXIDE 400 MG TAB PO SCH (08:38)
[2017-05-06] MEDS: GABAPENTIN 300 MG CAP PO SCH ×3 (08:38→21:10)
[2017-05-06] MEDS: CITALOPRAM HBR 20 MG TAB PO SCH (08:38)
[2017-05-06] MEDS: ALLOPURINOL 300 MG TAB PO SCH ×2 (08:38→21:11)
[2017-05-06] MEDS: METOPROLOL SUCCINATE XL 50 MG TAB PO SCH (08:38)
[2017-05-06] MEDS: LISINOPRIL 10 MG TAB PO SCH (08:38)
[2017-05-06] MEDS: ENOXAPARIN SODIUM 30 MG/0.3 ML SYG SUBCU SCH ×2 (08:39→21:11)
[2017-05-06] MEDS: SODIUM CHLORIDE 0.9% (FLUSH) 10 ML SYG IV SCH ×2 (08:40→21:06)
--- NOTE | 2017-05-06 09:03 | PN ---
DATE: 05/04/17 POSTOPERATIVE CHECK SUBJECTIVE: Mr. Hartley is doing well and is having no pain. OBJECTIVE: Afebrile. Vital signs stable. Dressing is clean, dry and intact. ASSESSMENT: Status post total knee arthroplasty. PLAN: He will begin weight-bearing as tolerated on postoperative day 1. #[id number] [facility]
--- NOTE | 2017-05-06 09:04 | PN ---
DATE: 05/05/17 SUBJECTIVE: Mr. Hartley is doing well and is working with physical therapy. His pain is well tolerated and is being well managed with current pain regimen. OBJECTIVE: Afebrile. Vital signs stable. Dressing is clean, dry and intact. ASSESSMENT: Status post total knee arthroplasty. PLAN: He will continue with physical therapy and continue with weight-bearing as tolerated. #[id number] [facility]
--- NOTE | 2017-05-06 09:11 | PN ---
DATE: 05/06/17 SUBJECTIVE: He is doing pretty. He has unfortunately had to have a catheter re- inserted secondary to urinary retention. Other than that, he has no issues at this time. OBJECTIVE: Afebrile. Vital signs stable. Wound is clean. There are no signs or symptoms of infection. ASSESSMENT: Status post total knee arthroplasty. PLAN: The plan at this point is to continue with physical therapy. We are going to work on bladder training today and see if we can get him straightened out from that standpoint. He does have help when he goes home and therefore he will likely only be with us for another day or so if we can get his bladder issue under control. #[id number] [facility]
[2017-05-06] MEDS: ALBUTEROL SULFATE 2.5 MG/3 ML VIAL NEB SCH ×3 (10:20→20:46)
[2017-05-06] MEDS ORDERED: GABAPENTIN 300 MG CAP ONE ×2 (15:20→19:35)
--- NOTE | 2017-05-06 20:16 | PN ---
DATE: 05/06/17 SUPERVISING PHYSICIAN: Sulaiman Morgan M.D. SUBJECTIVE: The patient continues to do well with his knee and his physical therapy. He did have some issues with urinary retention and required replacement of catheter at which time on insertion of catheter there was return of 1,000 mL of urine. Repeat urinalysis showed a large amount of blood on the dipstick but rare bacteria. The patient remains on Meropenem until we can get a final culture completed. He remains afebrile. He has had no nausea or vomiting, chest pains, diarrhea or constipation. OBJECTIVE: VITAL SIGNS: Temperature 98.4, pulse 82, blood pressure 130/70, respirations 16, satting 100% on room air. I's and O's show a negative balance of 650 with 1350 in, 2000 out. He has not yet had a bowel movement. Weight 95.7 kg. CHEST: Lungs are clear to auscultation. HEART: Regular rate and rhythm. ABDOMEN: Obese but soft, non-tender with positive bowel sounds. EXTREMITIES: No clubbing, cyanosis or edema. Right knee has a dressing in place that is clean and dry. There is minimal swelling. No erythema noted. No signs of infection. Pulses distally are strong, capillary refill brisk. NEUROLOGIC: He is alert and oriented times three. LABORATORY: Repeat laboratory this morning included chemistries showing sodium 125 with normal potassium at 4.4, BUN had improved somewhat going down to 21, creatinine had improved and is now from 2.74 to 1.65. Bilirubin showed a slight elevation of 1.7 with AST 62. MICROBIOLOGY: Urine culture after 48 hours showed no growth. ASSESSMENT: 1. Postoperative day 2 of total left knee arthroplasty having failed to respond to outpatient treatment therapy. 2. Chronic osteoarthritis having failed to respond to outpatient treatment with left knee pain requiring surgical intervention for symptom control. 3. Urinary retention as noted with placement of Iverson with 1000 mL requiring ongoing bladder training with attempts to remove catheter prior to discharge with the patient remaining on Meropenem but showing no growth on cultures. Anticipate discontinuing antibiotics in the morning. 4. Hematuria with cultures again showing no growth. 5. Mild dehydration given IV fluids postoperatively showing improvement with improvement of his renal function. 6. Renal insufficiency secondary to prerenal azotemia showing improvement with IV fluids possibly related to the urinary retention. 7. History of asthma on bronchodilators as needed. 8. Hypertension. 9. Chronic pruritus on multiple medications, including Gabapentin as well as antibiotic allergies noted. 10. Chronic back pain. 11. History of depression. 12. History of benign prostatic hypertrophy post transurethral resection of the prostate with some again urinary retention noted on postoperative recovery requiring reinitiation of Iverson catheter with anticipation of bladder training and removing prior to discharge. 13. History of ethanol abuse in the past needing close monitoring continued but showing no signs of withdrawal symptoms. 14. History of recent hyponatremia with no electrolytes available at time of admission showing to be more likely chronic probably more likely secondary to recent IV fluid management through surgery as well as his ongoing alcohol abuse. PLAN: Will continue to follow the patient as he progresses through his physical therapy. He is not showing any signs of alcohol withdrawal. Will continue with Meropenem through the night and then continue with bladder training and remove the catheter in the morning to reassess for again urinary retention. Will anticipate hopefully discharging Wednesday again based off how he progresses clinically. If he is unable to again void, certainly will need to have a catheter placed to go home with and followup with urology. Will continue to assess that and address that as needed. Will continue with bronchial hygiene and anticipate again hopefully discharging within the next 24 to 48 hours. Until then, will continue to monitor and treat appropriately. #[id number] [facility]
[2017-05-06] MEDS: DOCUSATE CALCIUM 240 MG CAP PO SCH (21:10)
[2017-05-07] MEDS ORDERED: SODIUM CHL 0.9% 50ML MIN-BAG+ 0 ML IVPB ONE (02:32)
[2017-05-07] MEDS ORDERED: MEROPENEM 500 MG VIAL IVPB ONE ×2 (02:32→07:26)
[2017-05-07] MEDS: MEROPENEM 500 MG in SODIUM CHL 0.9% 50ML MIN-BAG+ 50 ML IVPB SCH (03:15)
[2017-05-07] MEDS: OMEPRAZOLE CAP 20 MG CAP PO SCH (06:25)
[2017-05-07] MEDS ORDERED: SODIUM CHL 0.9% 50ML MIN-BAG+ 50 ML IVPB ONE (07:25)
[2017-05-07] MEDS: METOPROLOL SUCCINATE XL 50 MG TAB PO SCH (07:39)
[2017-05-07] MEDS: CELECOXIB 100 MG CAP PO SCH (07:52)
[2017-05-07] MEDS: GABAPENTIN 300 MG CAP PO SCH ×2 (08:46→15:30)
[2017-05-07] MEDS: CITALOPRAM HBR 20 MG TAB PO SCH (08:46)
[2017-05-07] MEDS: ALLOPURINOL 300 MG TAB PO SCH (08:46)
[2017-05-07] MEDS: MAGNESIUM OXIDE 400 MG TAB PO SCH (08:46)
[2017-05-07] MEDS: SODIUM CHLORIDE 0.9% (FLUSH) 10 ML SYG IV SCH (08:47)
[2017-05-07] MEDS: LISINOPRIL 10 MG TAB PO SCH (08:47)
[2017-05-07] MEDS: ENOXAPARIN SODIUM 30 MG/0.3 ML SYG SUBCU SCH (08:49)
[2017-05-07] MEDS: ALBUTEROL SULFATE 2.5 MG/3 ML VIAL NEB SCH ×2 (09:07→14:03)
--- NOTE | 2017-05-07 11:27 | PN ---
DATE: 05/07/17 SUBJECTIVE: Mr. Hartley is doing really well although he does have his catheter in. He is undergoing bladder training today to hopefully get that removed. OBJECTIVE: Afebrile. Vital signs stable. Wound is clean. There are no signs or symptoms of infection. ASSESSMENT: Status post total knee arthroplasty. PLAN: He will continue with therapy. He is on planning on doing home health. We will do the bladder training today and hopefully get him out this morning. #[id number] [facility]
[2017-05-07 15:01] VITALS: O2SAT 98
[2017-05-07 16:24] VITALS: BP 129/82; TEMP 98
[2017-05-07] MEDS ORDERED: BISACODYL SUPPOSITORY 10 MG PR ONE (21:00)
[2017-05-07] MEDS ORDERED: MAGNESIUM HYDROXIDE 30 ML UD PO ONE (21:00)
--- NOTE | 2017-05-08 11:39 | DS ---
SUPERVISING PHYSICIAN: Sulaiman Morgan M.D. DISCHARGE DIAGNOSIS: 1. Postoperative day 3 of total left knee arthroplasty having failed to respond to outpatient treatment therapy. 2. Chronic osteoarthritis having failed to respond to outpatient treatment with left knee pain requiring surgical intervention for symptom control. 3. Urinary retention as noted with placement of Iverson initially with 1000 mL requiring bladder training with good results with the patient able to void prior to discharge. 4. Hematuria with cultures again showing no growth with the patient having been on Meropenem since hospitalization and discontinued prior to discharge. 5. Mild dehydration as noted on laboratory studies and given IV fluids postoperatively showing improvement with improvement of his renal function. 6. Renal insufficiency secondary to prerenal azotemia showing improvement with IV fluids and possibly related to some underlying urinary retention. 7. History of asthma on bronchodilators as needed. 8. Hypertension. 9. Chronic pruritus on multiple medications, including Gabapentin as well as antibiotic allergic reactions noted. 10. Chronic back pain. 11. History of depression. 12. History of benign prostatic hypertrophy post transurethral resection of the prostate with some again urinary retention noted postoperatively during recovery requiring reinsertion of Iverson but able to bladder train and show no difficulty with voiding prior to discharge. 13. History of ethanol abuse in the past with no signs of withdrawals. 14. History of recent hyponatremia with the patient showing some improvement with fluids and improving prior to discharge felt to be chronic secondary to the patient chronic alcohol abuse. REASON FOR HOSPITALIZATION: Mr. Hartley is a 77 year-old male patient that was admitted to the hospital on the morning of 05/04/17 for elective surgical repair and replacement of a total left knee arthroplasty that was performed by Dr. Marvin Espinosa. The patient tolerated the procedure well. He was followed through his recovery phase and progressed well through his progress. As noted in the patient's history, the patient had been having ongoing left knee pain for a length of time but had been unresponsive to any outpatient therapy, and thus required the surgical procedure to assist with symptom control. LABORATORY: Postoperative H&H was 13.2 and 39.8. Chemistries showed a low sodium of 120 initially on admission but after saline locking and prior to discharge his sodium had improved to 129 which was felt to be chronic. His initial creatinine was 2.74 after treatment and prior to discharge had improved to 1.44. Calcium was normal at 8.8. Liver functions showed some elevation of his total bilirubin at 1.7 with AST of 62, ALT 27, alkaline phosphatase 57. Urinalysis initially showed postoperatively too numerous to count RBCs on microscopic with 3+ amorphous material. The dipstick revealed blood with 15 ketones, large amount of blood, positive nitrites which was felt to be related to the excessive hemoglobin from the blood present. Repeat urinalysis after catheterization showed large amount of blood continued with trace of leukocyte esterase, 10 to 20 RBCs with 3 to 5 WBCs, 1 to 3 epithelials and rare bacteria. MICROBIOLOGY: Urine culture showed no growth at 48 hours. RADIOLOGY: There were no additional radiographic studies while he was admitted. HOSPITAL COURSE: Mr. Hartley was admitted as noted on 05/04/17 for elective knee surgery. He did well through surgery and progressed well through his physical therapy efforts. He had a history of alcoholism and showed no outright signs of acute withdrawal. He progressed well with physical therapy. It was noted that he did have some difficulty voiding and initial catheter removed postvoiding showed that he had retention with 1,000 on reinsertion of the Iverson catheter. He was placed on Merrem based off of first initial urinalysis results with concern for an infection and given the patient with a fresh knee was treated more aggressively. He progressed well. He was able to meet his therapy goals and therefore was felt o be clinically stable enough to be discharged. He did show a low sodium but this had returned to near baseline status. Again, he was much improved prior to discharge. PLAN: Mr. Hartley was discharged on 05/07/17 with instructions to followup with Dr. Espinosa as scheduled and to have continued therapy with [facility]. He is to resume his medications as previous to the hospital and return to the hospital should any concerning symptoms or call Dr. Espinosa's office. At discharge, he was provided prescription for pain to include [place] 5/325 one tablet every 4 hours as needed, #[address] Espinosa and continued anticoagulation with Xarelto 10 mg daily for an additional 9 days. All other medications prior to hospitalization were continued. Diet at discharge was regular diet as tolerated. Activity is as per Physical Therapy. He was to shower but no tub bath until seen by Dr. Espinosa in followup. Condition at discharge was stable and improved. [facility][id number]
== END 2017-05-07 16:40 | disposition home health service (06) | DRG 470 ==
LOC: AMB 05:56 → MS 10:45
PROVIDERS: ADMIT Orthopaedic Surgery; ATTEND Emergency Medicine
PROC: 0SRD0J9 Replacement of Left Knee Joint with Synthetic Substitute, Cemented, Open Approach (ICD-10-PCS; principal; 2017-05-04 07:00)
DX: M17.12 Unilateral primary osteoarthritis, left knee (principal); N39.0 Urinary tract infection, site not specified; E87.1 Hypo-osmolality and hyponatremia; R33.9 Retention of urine, unspecified; R31.9 Hematuria, unspecified; E86.0 Dehydration; J45.909 Unspecified asthma, uncomplicated; I10 Essential (primary) hypertension; G89.29 Other chronic pain; M54.5 Low back pain; L29.9 Pruritus, unspecified; F10.10 Alcohol abuse, uncomplicated; E66.9 Obesity, unspecified; Z96.651 Presence of right artificial knee joint; Z88.3 Allergy status to other anti-infective agents; Z88.0 Allergy status to penicillin; Z88.5 Allergy status to narcotic agent; Z87.891 Personal history of nicotine dependence; Z79.899 Other long term (current) drug therapy; Z68.29 Body mass index [BMI] 29.0-29.9, adult

== ENCOUNTER → 2017-07-09 | Outpatient (CLI) | payer MEDICARE ==
--- NOTE | 2017-07-12 08:06 | MRI ---
EXAM DESCRIPTION: MRI lumbar spine CLINICAL HISTORY: Radiculopathy. Lumbar spine pain COMPARISON: 06/14/2014 TECHNIQUE: Standard sagittal and axial MR images of the lumbar spine. FINDINGS: Severe multilevel degenerative disc and facet disease. Levoscoliosis centered at the L2-3 level L5-S1: Moderate left and mild right facet arthrosis. Severe disc degeneration with mild retrolisthesis L5 on S1. Disc osteophyte ridging leads to bilateral subarticular recess stenosis abutting and mildly deforming descending left S1 nerve without compression against posterior elements. No canal stenosis or descending right S1 nerve impingement. Moderate left foraminal stenosis with mild deformity of left L5. No right L5 nerve impingement. Similar appearance to previous study L4-5: Severe left and moderate right facet arthrosis. Disc osteophyte ridge in the paracentral regions with moderate left subarticular recess narrowing mildly deforming descending left L5 nerve. No right L5 nerve impingement. Severe left foraminal stenosis from endplate and facet spurring impinging the left L4 nerve. No right L4 nerve impingement. Similar appearance to previous study L3-4: Postsurgical decompressive laminectomy. Severe left and moderate right facet arthrosis. Disc osteophyte ridging with moderate right subarticular recess narrowing impinging descending right L4 nerve. Severe left foraminal stenosis from facet spurring primarily deformity of left L3 nerve. Mild foraminal narrowing with endplate osteophyte ridge abutting and mildly deforming the right L3 lateral to the foramen. Similar appearance to previous study L2-3: Moderate facet arthrosis and hypertrophy bilaterally. Severe disc degeneration asymmetrically greater along the right lateral aspect with complete loss of disc height, endplate irregularity and marrow edema. Mild subarticular recess narrowing bilaterally. Severe right foraminal stenosis from facet spurring and endplate osteophyte ridging compressing right L2 nerve. No left L2 nerve impingement. Similar appearance to previous study L1-2: Mild facet arthrosis and hypertrophy. No canal stenosis or descending nerve impingement. Moderate foraminal narrowing on the right and mild on the left T12-L1: No canal or foraminal narrowing No signal abnormality lower thoracic cord or conus medullaris. No mass or adenopathy in the retroperitoneum IMPRESSION: Multilevel degenerative disc and facet disease with levoscoliosis. Multilevel significant foraminal stenosis and nerve compression. Similar appearance to previous study 06/14/2014. See above discussion regarding each level and any particular radiculopathy Electronically signed by: Quoc Augustin MD 07/12/2017 8:05 AM [facility]
== END ==
LOC: MRI 10:15
PROVIDERS: ATTEND Orthopaedic Surgery
DX: M54.16 Radiculopathy, lumbar region (principal); M41.9 Scoliosis, unspecified; M51.36 Other intervertebral disc degeneration, lumbar region

== ENCOUNTER → 2017-12-10 | Outpatient (CLI) | payer MEDICARE ==
--- NOTE | 2017-12-10 16:36 | RAD ---
EXAM DESCRIPTION: Knee,Left Complete CLINICAL HISTORY: 77 years, Male, PAIN IN LEFT KNEE COMPARISON: None TECHNIQUE: Four views of the left knee FINDINGS: Total left knee arthroplasty is present. No periprosthetic osteolysis. No complicating fracture. Inferior patellar enthesopathy. Patella is normally situated. Density above the patella suggests suprapatellar knee joint effusion. Anatomic alignment of the femoral and tibial components. Patella is normally situated. Compared to previous study, no change. IMPRESSION: Total left knee arthroplasty. Suprapatellar knee joint effusion. Electronically signed by: Zechariah Garza MD 12/10/2017 4:35 PM CDT
== END ==
LOC: RAD 08:04
PROVIDERS: ATTEND Orthopaedic Surgery
DX: M25.562 Pain in left knee (principal); M25.462 Effusion, left knee; Z96.652 Presence of left artificial knee joint

== ENCOUNTER → 2017-12-28 | Outpatient (CLI) | payer MEDICARE | LOC: GMAH 16:45 | PROVIDERS: ATTEND Family Medicine | DX: F03.90 Unspecified dementia, unspecified severity, without behavioral disturbance, psychotic disturbance, mood disturbance, and anxiety (principal) ==

== ENCOUNTER → 2018-01-31 | Outpatient (CLI) | payer MEDICARE ==
--- NOTE | 2018-01-31 08:12 | RAD ---
EXAM DESCRIPTION: Shoulder,Right 2 or More Views CLINICAL HISTORY: PAIN IN RIGHT SHOULDER COMPARISON: None FINDINGS: 4 views of the right shoulder. Moderate to severe acromioclavicular joint osteoarthritis is present. There is lateral downsloping of acromion. Glenohumeral joint space loss is noted. No advanced glenohumeral joint osteoarthritis . Usual degenerative changes seen at the greater tuberosity commonly associated with chronic rotator cuff pathology. No acute fractures are present. Old right-sided rib fractures are noted. IMPRESSION: Degenerative findings. Negative for acute osseous pathology. Electronically signed by: Demarcus Tolbert MD 01/31/2018 8:10 AM CDT
== END ==
LOC: RAD 07:00
PROVIDERS: ATTEND Orthopaedic Surgery
DX: M25.511 Pain in right shoulder (principal)

== ENCOUNTER → 2018-02-15 | Outpatient (CLI) | payer MEDICARE ==
--- NOTE | 2018-02-15 12:40 | MRI ---
MRI right shoulder without contrast INDICATION: Shoulder pain rotator cuff tear TECHNIQUE: Noncontrast MR imaging right shoulder FINDINGS: Moderate AC joint osteoarthrosis. Diffuse massive full-thickness rotator cuff tear supraspinatus and infraspinatus. Supraspinatus retraction is most pronounced to the glenohumeral joint level. There is moderate glenohumeral osteoarthrosis. Diffuse degenerative fraying of the labrum. Diffuse high-grade partial tear of the subscapularis tendon. Diffuse maceration of the long head bicep full-thickness with distal retraction. Diffuse reactive-appearing synovitis suggesting possible developing cuff arthropathy. Diffuse bursal fluid and synovitis. No osteonecrosis or fracture. Muscle atrophy is limited due to the slice location on the sagittal T1 images. However there is intramuscular edema especially in the infraspinatus suggesting developing atrophy. There is also generalized grade 2 fatty marbling on the production support supervisor images. There is grade 3 up to grade 4 fatty atrophy of the supraspinatus muscle belly on sagittal series 601 image 1. IMPRESSION: Full-thickness retracted tear supraspinatus into the anterior infraspinatus with partial diffuse tear of the subscapularis Macerated long head bicep effectively full-thickness Moderate glenohumeral osteoarthrosis with labral degeneration Prominent bursal and joint fluid with synovitis Generalized muscle atrophy most pronounced in the supraspinatus of 2 grade 3-4 Moderate AC joint arthrosis Diffuse intramuscular edema infraspinatus suggesting developing atrophy vs strain Electronically signed by: Ariel Stacy MD 02/15/2018 12:39 PM CDT
== END ==
LOC: MRI 07:32
PROVIDERS: ATTEND Orthopaedic Surgery
DX: M75.102 Unspecified rotator cuff tear or rupture of left shoulder, not specified as traumatic (principal)

== ENCOUNTER → 2018-03-01 | Outpatient (CLI) | payer MEDICARE ==
--- NOTE | 2018-03-03 06:13 | CT ---
Study: CT of the Right Shoulder. Indication: OSTEOARTHRITIS Technique: Axial CT of the right shoulder was performed without contrast. Coronal and sagittal reformats per This exam was performed according to our departmental dose-optimization program, which includes automated exposure control, adjustment of the mA and/or kV according to patient size and/or use of iterative reconstruction technique. Comparison: MRI February 15, 2018. Findings: Moderate to severe hypertrophic AC joint osteoarthritis. Mild type II acromion with prominent lateral downsloping. Previous noted rotator cuff tendon tearing better evaluated by MRI. Chondrocalcinosis of the labrum and articular cartilage throughout the glenohumeral joint. Moderate glenohumeral joint osteoarthritis redemonstrated with joint space narrowing and small to moderate joint line osteophytes and better characterized by the MRI. No acute fracture. Scattered vascular calcifications noted. Atrophy and fatty infiltration rotator cuff musculature better evaluated on the recent MRI. Impression: Moderate glenohumeral joint osteoarthritis. Moderate to severe AC joint osteoarthritis. Rotator cuff tendon tearing better evaluate on the recent MRI. Electronically signed by: Edgardo Hernandez MD 03/03/2018 6:11 AM CDT
== END ==
LOC: CT 13:23
PROVIDERS: ATTEND Orthopaedic Surgery
DX: M19.011 Primary osteoarthritis, right shoulder (principal); M75.101 Unspecified rotator cuff tear or rupture of right shoulder, not specified as traumatic

== ENCOUNTER → 2018-03-09 | Outpatient (CLI) | payer MEDICARE | LOC: LAB.O 12:14 | PROVIDERS: ATTEND Orthopaedic Surgery | DX: Z01.818 Encounter for other preprocedural examination (principal) ==

== ENCOUNTER 2018-03-29 05:51 | Inpatient (IN) | payer MEDICARE ==
--- NOTE | 2018-03-28 09:43 | HP ---
CHIEF COMPLAINT: Right shoulder pain. HISTORY OF PRESENT ILLNESS: Mr. Hartley is a 78-year-old male with a history of both pain and limitation in activity of the right shoulder. He has had severe pain going on and getting progressively worse for several years. He denies any radiation of pain and denies any neurologic symptoms. He has tried conservative measures, however, has failed to gain relief. Because of the failure of relief, he has requested operative intervention. After discussing the risks, benefits and alternatives to operative therapy, the patient has given informed consent for total shoulder arthroplasty. PAST SURGICAL HISTORY: 1. Knee arthroscopy. 2. Total knee arthroplasty. 3. Cervical fusion. MEDICATIONS: 1. Allopurinol. 2. Bactrim. 3. Citalopram. 4. Escitalopram. 5. Gabapentin. 6. Lisinopril. 7. Metoprolol. 8. Nabumetone. 9. Omeprazole. 10. Rifampin. ALLERGIES: PENICILLINS, CEPHALOSPORINS, CODEINE. CODE STATUS: Full code. IMMUNIZATIONS: Up to date. FAMILY HISTORY: None pertinent to today's complaint. SOCIAL HISTORY: The patient does not smoke or use any illicit drugs. He drinks on occasion. REVIEW OF SYSTEMS: Negative except as indicated in the History of Present Illness. PHYSICAL EXAMINATION: VITAL SIGNS: Blood pressure 103/57. Pulse 76. Height 6'. Weight 205 pounds. MENTAL STATUS: The patient is awake, alert, and is able to give a good history and participate in the physical. The patient is oriented to person, place and time. SKIN: Normal tone and turgor. HEENT: Normocephalic, atraumatic. Pupils equal, round and reactive. Mucosal membranes are moist. NECK: Normal range of motion. No thyromegaly, no lymphadenopathy. CHEST: Normal respiratory excursion. CARDIAC: Regular rate and rhythm. No murmurs, rubs or gallops. MUSCULOSKELETAL: The bilateral lower extremities show no significant discomfort with range of motion. He has no malalignment. Sensation is intact. They maintain full range of motion. Both extremities are warm and well perfused. The left upper extremity shows full abduction and forward flexion. He has full range of motion of the elbow, wrist and digits. It is warm and well perfused. There is no crepitus. Strength is 5/5. The right upper extremity shows full abduction, but he has severe pain with abduction beginning at about 80 degrees. Sensation is intact throughout the extremity and it is warm and well perfused. 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 Sensation is intact along the lateral aspect of the deltoid and he does seem to have full strength in deltoid and active muscle firing. IMAGING: MRI shows a large retract rotator cuff tear with arthritis. ASSESSMENT: 1. Rotator cuff arthropathy. PLAN: The plan at this point is for reverse shoulder arthroplasty. We have discussed the risks, benefits, and alternatives to that and the patient has given informed consent. [facility][id number] [facility]
[~2018-03-29 05:51] MED LIST: CLINDAMYCIN IV 900MG 50 ML IVPB ONE; LACTATED RINGERS 1,000 ML ONE; SODIUM CHLORIDE 0.9% 250ML 250 ML ONE; TRANEXAMIC ACID 1,000 MG/10 ML VIAL ONE; VANCOMYCIN HCL INJ 1,000 MG VIAL IVPB ONE
[2018-03-29] MEDS ORDERED: fentaNYL CITRATE INJ 50 MCG/ML AMP ONE (06:19)
[2018-03-29] MEDS ORDERED: ACETAMINOPHEN IV 1000MG 100 ML ONE (06:19)
[2018-03-29] MEDS ORDERED: MIDAZOLAM INJ 5 MG/5 ML VIAL ONE (06:19)
[2018-03-29] MEDS ORDERED: ROCURONIUM BROMIDE 10 MG/ML VIAL ONE ×2 (06:20→08:33)
[2018-03-29] MEDS ORDERED: BUPIVACAINE 0.5% 30 ML VIAL INJ ONE ×2 (06:26→06:31)
[2018-03-29] MEDS ORDERED: BUPIVACAINE LIPOSOME 13.3 MG/ML VIAL INJ ONE ×2 (06:26→06:31)
[2018-03-29] MEDS ORDERED: CLINDAMYCIN IV 900MG 50 ML IVPB ONE (06:30)
[2018-03-29] MEDS ORDERED: VANCOMYCIN HCL INJ 1,000 MG VIAL IVPB ONE ×4 (06:30→20:30)
[2018-03-29] MEDS ORDERED: LACTATED RINGERS 1,000 ML BAG IV ONE (06:37)
[2018-03-29] MEDS ORDERED: TRANEXAMIC ACID 1,000 MG/10 ML VIAL ONE (07:08)
[2018-03-29] MEDS ORDERED: SODIUM CHLORIDE 0.9% 100ML 100 ML IVPB ONE (07:08)
[2018-03-29] MEDS: VANCOMYCIN HCL INJ 1,000 MG VIAL IVPB ONE ×2 (08:02→11:05)
[2018-03-29] MEDS ORDERED: DEXAMETHASONE INJ 10 MG/ML VIAL IV ONE (10:00)
[2018-03-29] MEDS ORDERED: ePHEDrine SULF 50 MG/ML IV ONE (10:00)
[2018-03-29] MEDS ORDERED: PROPOFOL 200 MG/20 ML VIAL IV ONE (10:00)
[2018-03-29] MEDS ORDERED: METOCLOPRAMIDE HCL INJ 10 MG/2 ML VIAL IV ONE (10:00)
[2018-03-29] MEDS ORDERED: SODIUM CHLORIDE 0.9% 50 ML VIAL INJ ONE (10:00)
[2018-03-29] MEDS ORDERED: raNITIdine HCL INJ 25 MG/ML VIAL IV ONE (10:00)
[2018-03-29] MEDS ORDERED: LIDOCAINE 1% 10 ML VIAL INJ ONE (10:00)
[2018-03-29] MEDS ORDERED: SODIUM CHLORIDE 0.9% 1000ML 1,000 ML ONE (10:52)
[2018-03-29] MEDS ORDERED: SUGAMMADEX SODIUM 200 MG/2 ML VIAL IV ONE (11:13)
[2018-03-29] MEDS ORDERED: HYDROmorphone HCL INJ 2 MG/ML VIAL ONE (11:14)
[2018-03-29] MEDS ORDERED: BENZOCAINE-MENTH LOZ (CEPACOL) 1 EA LOZ MT PRN (11:48)
[2018-03-29] MEDS ORDERED: BISACODYL SUPPOSITORY 10 MG PR PRN (11:48)
[2018-03-29] MEDS ORDERED: ALUMINUM & MAGNESIUM HYDROXIDE 30 ML UD PO PRN (11:48)
[2018-03-29] MEDS ORDERED: TEMAZEPAM 15 MG CAP PO PRN (11:48)
[2018-03-29] MEDS ORDERED: ACETAMINOPHEN 325 MG TAB PO PRN (11:48)
[2018-03-29] MEDS ORDERED: MAGNESIUM HYDROXIDE 30 ML UD PO PRN (11:48)
[2018-03-29] MEDS ORDERED: ZOLPIDEM TARTRATE 5 MG TAB PO PRN (11:48)
[2018-03-29] MEDS ORDERED: HYDROmorphone PCA 0.2 MG/ML 1 BAG BAG IVPB SCH (12:00)
--- NOTE | 2018-03-29 13:51 | RAD ---
EXAM DESCRIPTION: Right shoulder, single view CLINICAL HISTORY: Postoperative arthroplasty FINDINGS/ IMPRESSION: Reverse total shoulder arthroplasty with expected air in the soft tissues. No acute bony abnormality. No radiopaque foreign body Moderate osteoarthritis of the acromioclavicular joint Electronically signed by: Quoc Augustin MD 03/29/2018 1:50 PM [facility]
[2018-03-29] MEDS ORDERED: CLINDAMYCIN INJ (VIAL) 300 MG in SODIUM CHLORIDE 0.9% 50ML 50 ML IVPB SCH (15:00)
[2018-03-29] MEDS ORDERED: SODIUM CHLORIDE 0.9% 50ML 50 ML ONE ×2 (16:08→20:32)
[2018-03-29] MEDS ORDERED: CLINDAMYCIN PHOSPHATE 150 MG/ML VIAL ONE ×2 (16:08→20:31)
[2018-03-29] MEDS ORDERED: diphenhydrAMINE HCL 50 MG/ML VIAL IV PRN (16:19)
[2018-03-29] MEDS: CLINDAMYCIN INJ (VIAL) 300 MG in SODIUM CHLORIDE 0.9% 50ML 50 ML IVPB SCH (16:23)
[2018-03-29] MEDS ORDERED: ALBUTEROL SULFATE 2.5 MG/3 ML VIAL NEB PRN (16:47)
[2018-03-29] MEDS: OMEPRAZOLE CAP 20 MG CAP PO SCH (16:57)
--- NOTE | 2018-03-29 17:11 | CONS ---
SUPERVISING PHYSICIAN: Sulaiman Morgan MD CHIEF COMPLAINT: Right shoulder pain. HISTORY OF PRESENT ILLNESS: This is a 78-year-old male with a history of right shoulder pain. He has had severe pain on and off for many years. It has worsened to the point that it has limited his daily activities. He tried conservative measures but he failed to gain relief. He has requested Dr. Marvin Espinosa, orthopedic surgeon, operative intervention for a right total shoulder arthroplasty. He had no problems intraoperatively and I am seeing the patient postoperatively on the medical/surgical floor. PAST MEDICAL HISTORY: 1. Gout. 2. Gastroesophageal reflux disease. 3. History of asthma. 4. Hypertension. PAST SURGICAL HISTORY: 1. Right total knee arthroscopy. 2. TURP. . 3. Appendectomy. 4. Two lumbar and one cervical spine surgery. 5. Hemorrhoidectomy. 6. Fistula tract repair. 7. Elbow bursitis surgery. 8. Bilateral shoulder rotator cuff repair.. MEDICATIONS: Per the EMR and awaiting verification. ALLERGIES: PENICILLINS, CEPHALOSPORINS, CODEINE, ULTRAM. He also has a lactose intolerance. FAMILY HISTORY: Positive for cancer. 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 He is . He lives in [place]. He quit smoking in 1968. He drinks alcoholic beverages socially but only rarely and he denies any illicit drug use. REVIEW OF SYSTEMS: Negative except as per history of present illness. PHYSICAL EXAMINATION: VITAL SIGNS: Afebrile. Heart rate 81, blood pressure 110/61, respiratory rate 16. 02 saturation 94% on 2 liters nasal cannula. GENERAL: This is a 78 year-old male patient who is lying in his hospital bed. He is in no acute distress. HEENT: Normocephalic and atraumatic. Pupils are equal and reactive. Oropharynx is clear. NECK: Supple without mass. CHEST: Essentially clear to auscultation bilaterally. There is equal rise and fall of the chest with the patient inspiration and expiration. HEART: Regular rate and rhythm. ABDOMEN: Soft, nondistended, non-tender. Bowel sounds are positive. EXTREMITIES: Bilateral pedal pulses are palpable at +2. There is no cyanosis or edema to his lower extremities. Bilateral radial pulses are palpable at +2. He does have a dressing on his right shoulder that is dry and intact and his right arm is in a sling. NEUROLOGIC: He is awake, alert, and oriented x3. LABORATORY: There are no labs or films to report at this time. IMPRESSION: 1. Right rotator cuff arthropathy status post right total shoulder arthroplasty postoperative day #0 surgical procedure performed by Dr. Marvin Espinosa, orthopedic surgeon. 2. History of asthma. 3. Hypertension. 4. Gastroesophageal reflux disease. 5. Gout. PLAN: We will continue present supportive care. Orthopedic issues will be per Dr. Marvin Espinosa, orthopedic surgeon. He will be evaluated by physical therapy tomorrow. I have restarted his home medication and have adjusted his metoprolol. He takes it at noon so he will get a dose and then will continue at noon tomorrow. He has a history of asthma so I will also order some albuterol treatments b.i.d. and then as needed. Otherwise, we will continue to monitor him closely and followup as needed. Dr. Morgan is the collaborating physician available for consultation. #[id number] [facility]
[2018-03-29] MEDS ORDERED: VANCOMYCIN HCL INJ 1,000 MG in SODIUM CHLORIDE 0.9% 250ML 250 ML IVPB SCH (18:00)
[2018-03-29] MEDS ORDERED: MORPHINE SULFATE INJ 10 MG/ML VIAL IV PRN (20:04)
[2018-03-29] MEDS ORDERED: ACETAMINOPHEN 500 MG TAB PO PRN (20:04)
[2018-03-29] MEDS ORDERED: PROMETHAZINE HCL INJ 12.5 MG in SODIUM CHLORIDE 0.9% 50ML 50 ML IVPB PRN (20:04)
[2018-03-29] MEDS ORDERED: ONDANSETRON INJ 4 MG/2 ML VIAL IV PRN (20:04)
[2018-03-29] MEDS ORDERED: MORPHINE SULFATE INJ 10 MG/ML VIAL IM PRN (20:04)
[2018-03-29] MEDS ORDERED: PROMETHAZINE HCL INJ 25 MG in SODIUM CHLORIDE 0.9% 50ML 50 ML IVPB PRN (20:04)
[2018-03-29] MEDS ORDERED: NALOXONE HCL INJ 0.4 MG/ML VIAL IV PRN (20:04)
[2018-03-29] MEDS: ALBUTEROL SULFATE 2.5 MG/3 ML VIAL NEB SCH (20:19)
[2018-03-29] MEDS ORDERED: IV SET AND CAP CHANGE INJ INJ SCH (20:30)
[2018-03-29] MEDS ORDERED: VANCOMYCIN HCL INJ 500 MG VIAL ONE (20:30)
[2018-03-29] MEDS ORDERED: MORPHINE PCA 1 MG/ML 100 ML BAG IVPB SCH (20:30)
[2018-03-29] MEDS ORDERED: SODIUM CHLORIDE 0.9% 250ML 250 ML ONE (20:30)
[2018-03-29] MEDS: DOCUSATE CALCIUM 240 MG CAP PO SCH (20:46)
[2018-03-29] MEDS: ALLOPURINOL 300 MG TAB PO SCH (20:46)
[2018-03-29] MEDS: GABAPENTIN 300 MG CAP PO SCH (20:46)
[2018-03-29] MEDS: ENOXAPARIN SODIUM 30 MG/0.3 ML SYG SUBCU SCH (20:47)
[2018-03-29] MEDS: NABUMETONE 750 MG PO SCH (20:47)
[2018-03-29] MEDS: VANCOMYCIN HCL INJ 1,000 MG, VANCOMYCIN HCL INJ 500 MG in SODIUM CHLORIDE 0.9% 250ML 25... IVPB SCH (22:11)
[2018-03-29] MEDS ORDERED: ENOXAPARIN SODIUM 30 MG/0.3 ML SYG SUBCU SCH (23:00)
[2018-03-30] MEDS: CLINDAMYCIN INJ (VIAL) 300 MG in SODIUM CHLORIDE 0.9% 50ML 50 ML IVPB SCH ×3 (00:02→16:16)
[2018-03-30] MEDS: ceFAZolin SODIUM 1 GM in SODIUM CHL 0.9% 50ML MIN-BAG+ 50 ML IVPB SCH ×2 (00:56→00:57)
[2018-03-30] MEDS: OMEPRAZOLE CAP 20 MG CAP PO SCH ×2 (06:37→16:16)
[2018-03-30] MEDS ORDERED: CLINDAMYCIN PHOSPHATE 150 MG/ML VIAL ONE ×3 (07:28→19:40)
[2018-03-30] MEDS ORDERED: SODIUM CHLORIDE 0.9% 50ML 50 ML ONE ×3 (07:29→19:40)
[2018-03-30] MEDS: ALBUTEROL SULFATE 2.5 MG/3 ML VIAL NEB SCH ×2 (08:17→20:10)
[2018-03-30] MEDS ORDERED: METOPROLOL SUCCINATE XL 50 MG TAB PO SCH (09:00)
[2018-03-30] MEDS ORDERED: HYDROcodone 5MG/APAP 325MG 1 EA TAB PO PRN (09:01)
[2018-03-30] MEDS: ESCITALOPRAM 10 MG TAB PO SCH (09:14)
[2018-03-30] MEDS: GABAPENTIN 300 MG CAP PO SCH ×3 (09:14→20:58)
[2018-03-30] MEDS: ALLOPURINOL 300 MG TAB PO SCH ×2 (09:14→20:58)
[2018-03-30] MEDS: LISINOPRIL 10 MG TAB PO SCH (09:16)
[2018-03-30] MEDS: MAGNESIUM OXIDE 400 MG TAB PO SCH (09:17)
[2018-03-30] MEDS: NABUMETONE 750 MG PO SCH ×2 (09:19→21:39)
--- NOTE | 2018-03-30 11:44 | PN ---
SUPERVISING PHYSICIAN: Sulaiman Morgan MD DATE: 03/30/18 SUBJECTIVE: The patient is lying in bed. He felt he did well with physical therapy today. He has had very minimal pain. No complaints of nausea, vomiting , diarrhea, chest pain or shortness of breath, but he did say that his chest was somewhat sensitive, itchy and tingly, most likely due to the anesthesia. There is no redness. He would like some Benadryl for it. OBJECTIVE: VITAL SIGNS: Afebrile. Heart rate 96. Blood pressure 114/65. Respiratory rate 20. O2 saturation 94% on 3 liters nasal cannula. RESPIRATORY: Essentially clear to auscultation bilaterally. CARDIAC: Regular rate and rhythm. GASTROINTESTINAL: Abdomen is soft, nondistended, nontender. Bowel sounds are positive. EXTREMITIES: Bilateral pedal pulses are palpable at +2. There is no edema or cyanosis. Bilateral radial pulses are palpable at +2. He has a dressing to his right shoulder that is dry and intact. NEUROLOGIC: Awake, alert and oriented times three. LABORATORY: Hemoglobin 12.1, hematocrit 36.7. Creatinine 1.39. His baseline creatinine looks to be about 1.4. All other labs and films have been reviewed via the EMR. ASSESSMENT: 1. Right rotator cuff arthropathy status post right total shoulder arthroplasty , postoperative day #1, surgical procedure performed by Dr. Marvin Espinosa, orthopedic surgeon. 2. History of asthma. 3. Hypertension. 4. Gastroesophageal reflux disease. 5. Gout. 6. Chronic renal insufficiency. PLAN: We will continue present supportive care. Orthopedic issues will be per Dr. Marvin Espinosa, orthopedic surgeon. He will continue with his physical therapy for strengthening and conditioning. I have continued to encourage good pulmonary hygiene. Hopefully he can be discharged home tomorrow. We will continue to monitor the patient closely and follow as needed. Dr. Morgan is the collaborating physician and available for consultation. [facility][id number] [facility]
[2018-03-30] MEDS: METOPROLOL SUCCINATE XL 50 MG TAB PO SCH (11:45)
--- NOTE | 2018-03-30 11:58 | PN ---
DATE: 03/29/18 POSTOPERATIVE CHECK SUBJECTIVE: Mr. Hartley is doing well and his pain is well controlled. OBJECTIVE: Afebrile. Vital signs stable. Dressing is clean, dry and intact. ASSESSMENT: Status post total shoulder arthroplasty. PLAN: The plan at this point is to begin physical therapy today. #[id number] [facility]
--- NOTE | 2018-03-30 12:00 | PN ---
DATE: 03/30/18 SUBJECTIVE: Mr. Hartley is doing well and his pain is well controlled right now. OBJECTIVE: Afebrile. Vital signs stable. Dressing is clean, dry and intact. ASSESSMENT: Status post total shoulder arthroplasty. PLAN: The plan at this point is for him to continue with therapy for active range of motion. We will likely discharge him tomorrow. #[id number] [facility]
[2018-03-30] MEDS: diphenhydrAMINE HCL 25 MG CAP PO PRN ×2 (15:30→21:00)
[2018-03-30] MEDS: HYDROcodone 10MG/APAP 325MG 1 EA TAB PO PRN ×2 (15:30→20:00)
[2018-03-30] MEDS ORDERED: VANCOMYCIN HCL INJ 500 MG VIAL ONE (19:34)
[2018-03-30] MEDS ORDERED: VANCOMYCIN HCL INJ 1,000 MG VIAL IVPB ONE (19:35)
[2018-03-30] MEDS ORDERED: SODIUM CHLORIDE 0.9% 250ML 250 ML ONE (19:35)
[2018-03-30] MEDS: CYCLOBENZAPRINE HCL 10 MG TAB PO PRN (20:01)
[2018-03-30] MEDS: DOCUSATE CALCIUM 240 MG CAP PO SCH (20:58)
[2018-03-30] MEDS: SODIUM CHLORIDE 0.9% (FLUSH) 10 ML SYG IV PRN ×2 (20:59→22:05)
[2018-03-30] MEDS: ENOXAPARIN SODIUM 30 MG/0.3 ML SYG SUBCU SCH (20:59)
[2018-03-30] MEDS: VANCOMYCIN HCL INJ 1,000 MG, VANCOMYCIN HCL INJ 500 MG in SODIUM CHLORIDE 0.9% 250ML 25... IVPB SCH (22:04)
[2018-03-31] MEDS: HYDROcodone 10MG/APAP 325MG 1 EA TAB PO PRN ×3 (00:03→11:20)
[2018-03-31] MEDS: CLINDAMYCIN INJ (VIAL) 300 MG in SODIUM CHLORIDE 0.9% 50ML 50 ML IVPB SCH ×2 (00:17→09:14)
[2018-03-31] MEDS: CYCLOBENZAPRINE HCL 10 MG TAB PO PRN (04:10)
[2018-03-31] MEDS: OMEPRAZOLE CAP 20 MG CAP PO SCH (06:20)
[2018-03-31] MEDS: ALBUTEROL SULFATE 2.5 MG/3 ML VIAL NEB SCH (07:45)
--- NOTE | 2018-03-31 08:34 | PN ---
DATE: 03/31/18 SUBJECTIVE: Mr. Hartley is doing well and is up to a chair right now. His pain is well controlled. OBJECTIVE: Afebrile. Vital signs stable. Wound is clean. There are no signs or symptoms of infection. ASSESSMENT: Status post total shoulder arthroplasty. PLAN: The plan at this point is for him to be discharged toady with followup and begin outpatient physical therapy. [facility][id number] [facility]
[2018-03-31] MEDS ORDERED: CLINDAMYCIN PHOSPHATE 150 MG/ML VIAL ONE (08:59)
[2018-03-31] MEDS ORDERED: SODIUM CHLORIDE 0.9% (FLUSH) 10 ML SYG IV SCH (09:00)
[2018-03-31] MEDS ORDERED: SODIUM CHLORIDE 0.9% 50ML 50 ML ONE (09:01)
[2018-03-31] MEDS: ESCITALOPRAM 10 MG TAB PO SCH (09:15)
[2018-03-31] MEDS: GABAPENTIN 300 MG CAP PO SCH (09:16)
[2018-03-31] MEDS: MAGNESIUM OXIDE 400 MG TAB PO SCH (09:16)
[2018-03-31] MEDS: LISINOPRIL 10 MG TAB PO SCH (09:16)
[2018-03-31] MEDS: ALLOPURINOL 300 MG TAB PO SCH (09:21)
[2018-03-31 09:34] VITALS: BP 144/73; TEMP 97.8; O2SAT 94
[2018-03-31] MEDS: METOPROLOL SUCCINATE XL 50 MG TAB PO SCH (12:46)
--- NOTE | 2018-03-31 13:16 | DS ---
SUPERVISING PHYSICIAN: Sulaiman Morgan MD DISCHARGE DIAGNOSIS: 1. Right rotator cuff arthropathy status post right total shoulder arthroplasty , postoperative day #2, surgical procedure performed by Dr. Marvin Espinosa, orthopedic surgeon. 2. History of asthma. 3. Hypertension, stable. 4. Gastroesophageal reflux disease. 5. Gout. 6. Chronic renal insufficiency. HISTORY OF PRESENT ILLNESS: This is a 78-year-old male patient who has a history of right shoulder pain. He has had severe pain on and off for many years. It had worsened to the point that it limited his daily activities. He tried conservative measures but he failed to gain relief. He has requested Dr. Marvin Espinosa, orthopedic surgeon, for operative intervention for a right total shoulder arthroplasty. He had no problems intraoperatively. HOSPITAL COURSE: Postoperatively, he had minimal pain. His vital signs remained stable. He was afebrile. His heart rate was 80s to 90s. Blood pressure has been running in the one-teens to 130s. Respiratory rate has been 18 to 20. O2 saturation has been in the mid-90s. His lab results showed a stable hemoglobin and hematocrit of 12.1 and 36.7. He continued with his physical therapy for strengthening and conditioning. His nasal swab on showed Staphylococcus aureus, negative for MRSA. He has met his goals, has had no problems during his hospital stay and he will be discharged home today in stable condition. DISCHARGE PLAN: The patient will be discharged home in stable condition. He should continue with his physical therapy at [facility] physical therapy department. He has a followup appointment with Dr. Espinosa on . He is being discharged on doxycycline for his positive nasal swab. He is also being discharged on [place] and cyclobenzaprine. He is to resume his previous home medications and increase his activity as tolerated and as per physical therapy. He is to followup with Dr. Espinosa or Dr. Espitia for any problems or complications or return to the hospital. DISCHARGE MEDICATIONS: 1. Omeprazole. 2. Allopurinol. 3. Nabumetone. 4. Vitamin D. 5. Benadryl. 6. Gabapentin. 7. Metoprolol succinate. 8. Lisinopril. 9. Escitalopram. 10. Naproxen. 11. Cyclobenzaprine. 12. Hydrocodone. 13. Doxycycline. #[id number] [facility]
--- NOTE | 2018-04-04 09:05 | OP ---
DATE OF PROCEDURE: 03/29/18 PREOPERATIVE DIAGNOSIS: 1. Rotator cuff syndrome. 2. Rotator cuff arthropathy. POSTOPERATIVE DIAGNOSIS: 1. Rotator cuff syndrome. 2. Rotator cuff arthropathy. PROCEDURE: 1. Total shoulder arthroplasty. SURGEON: Marvin Espinosa MD. RAW SILK GRADER: Edson Clark CST, SA-C. ANESTHESIA: General anesthesia. COMPLICATIONS: None. FINDINGS: 1. Complete tear of the infraspinatus, supraspinatus and biceps tendons. 2. Advanced osteoarthritis of the glenohumeral joint. INDICATION: Mr. Hartley has a history of severe shoulder pain that has been refractory to conservative measures. Mr. Hartley did have an MRI and it did reveal full thickness tearing of the rotator cuff. Because of his ongoing pain and dysfunction, he requested operative intervention. After discussing the risks, benefits and alternatives to operative therapy, he gave informed for reverse shoulder arthroplasty. PROCEDURE: The patient was brought to the Operating Room and placed in the supine position. General anesthesia was induced. The patient was transitioned into the beach chair position. The arm and shoulder were sterilely prepped and draped. Following prepping and draping, a standard deltopectoral approach was used. The clavipectoral fascia was identified and incised and retractor was carefully placed under the deltoid. The anterior capsule was identified. The biceps tendon was noted to be completely ruptured and no longer in the intertrabecular groove. Following that, the axillary nerve was identified and the anterior humeral circumflex vessels were ligated. Complete capsular release was performed and the humeral head was exposed. An extramedullary cutting guide was used to remove the articular surface of the humerus and the humerus was sequentially reamed by hand and the broached. It was broached to a size 17 and that broach was left in place. An osteotomy articular plate was applied to the humerus and the humerus was retracted and the glenoid was identified. The guide was used to place a guidepin in the inferior glenoid region. Following the placement of the guidepin, the glenoid was sequentially reamed to bleeding subchondral bone. A 28-mm baseplate was placed with a single compression screw in the central hole followed by four locking screws circumferentially. A size 36 glenosphere was impacted. Following impaction of the glenosphere, the humeral trial cup was placed. The shoulder was reduced and was taken through a range of motion. There was no impingement and no laxity. There was full range of motion and no scapular notching noted. Following that, the shoulder was dislocated and the trial humeral components were removed. The wound was very thoroughly irrigated and the final humeral component was cemented into place. After that, the arm was taken through a range of motion and it was found to be stable without any impingement or notching. The wound was very thoroughly irrigated. The deltopectoral interval was reapproximated. Following that, the skin was closed with a combination of running and interrupted subcuticular stitches. Sterile dressings were placed. The patient was placed in a sling, awoken from anesthesia and taken to Recovery. COMPONENTS: Trevon Reunion shoulder, size 36 glenosphere, size 17 humeral stem. POSTOPERATIVE PLAN: The patient will begin active range of motion on postoperative day 1. #[id number] [facility]
== END 2018-03-31 13:00 | disposition home or self-care (01) | DRG 497 ==
LOC: AMB 05:51 → MS 12:55
PROVIDERS: ADMIT Orthopaedic Surgery; ATTEND Nurse Practitioner Acute Care
PROC: 0RPJ0JZ Removal of Synthetic Substitute from Right Shoulder Joint, Open Approach (ICD-10-PCS; principal; 2018-03-29 07:08)
DX: M12.811 Other specific arthropathies, not elsewhere classified, right shoulder (principal); M10.9 Gout, unspecified; Z96.659 Presence of unspecified artificial knee joint; K21.9 Gastro-esophageal reflux disease without esophagitis; J45.909 Unspecified asthma, uncomplicated; I10 Essential (primary) hypertension; Z88.5 Allergy status to narcotic agent; Z88.0 Allergy status to penicillin; Z98.1 Arthrodesis status; Z87.891 Personal history of nicotine dependence; M75.101 Unspecified rotator cuff tear or rupture of right shoulder, not specified as traumatic

== ENCOUNTER 2018-09-20 01:06 | Emergency (ER) | payer MEDICARE ==
--- NOTE | 2018-09-20 02:29 | CT ---
CT HEAD WITHOUT CONTRAST 09/20/2018 CLINICAL HISTORY: Fall, head laceration, neck pain. COMPARISON: CT head 01/03/2018. TECHNIQUE: Axial 2.[address] imaging of the brain. Reformatted coronal and sagittal images obtained. This examination was performed according to our departmental dose optimization program, which includes automated exposure control, adjustment of the mA and/or kV according to patient size and/or use of iterative reconstruction technique. FINDINGS: Moderate prominence of the ventricles and extra axial fluid spaces due to cortical volume loss. There is mild decreased white matter attenuation secondary to chronic microvascular white matter ischemic change. There is no intraparenchymal or extra-axial bleed. No mass lesion. No midline shift. No acute major territorial infarction. No edema. No hyperdense vessel. Normal appearance of the cerebellum and vermis. Fourth ventricle is midline. No cerebellar tonsillar ectopia. Prepontine cisterns are not effaced. There is evidence of bilateral cataract surgery. There is a calcification adjacent to the right optic nerve compatible with drusen. Remaining intraorbital contents appear normal. There is mild mucosal thickening noted throughout the paranasal sinuses. Frontal sinuses are not pneumatized. Mastoid air cells are clear bilaterally. Intact skull base. Intact calvarium. Dystrophic calcification versus metallic foreign body in the left frontal scalp. IMPRESSION: 1. Mild to moderate senescent brain changes. No intracranial acute finding. 2. Mild mucosal sinus disease. Electronically signed by: Marisol Childs DO 09/20/2018 2:27 AM CDT
--- NOTE | 2018-09-20 02:32 | CT ---
CT cervical spine without contrast on 09/20/2018 CLINICAL INDICATION: Neck pain after fall TECHNIQUE: Multiple axial images are obtained throughout the cervical spine without the administration of contrast. Sagittal and coronal reformatted images are also performed and reviewed. This exam was performed according to our departmental dose-optimization program, which includes automated exposure control, adjustment of the mA and/or kV according to patient size and/or use of iterative reconstruction technique. Total DLP is 418.22 mGy*cm. COMPARISON: None FINDINGS: Diffuse degenerative disc disease is noted throughout the cervical spine. Diffuse degenerative facet disease is noted throughout the cervical spine. There is an age-indeterminate but likely acute type III odontoid fracture that extends into the right lateral mass of C2 and into the right vertebral artery foramen. Fracture involves the base of the odontoid and extends into the body of C2 especially on the right. Consider CT angiogram of the neck to evaluate for possible vertebral artery injury. Mucosal thickening is noted in bilateral maxillary sinuses consistent with changes of sinusitis. Bilateral carotid calcifications are noted. No other acute fracture line is noted. No definite disc herniation is noted. There is grade 1 spondylolisthesis at C3-4 and C5-6 secondary to degenerative facet disease. Reformatted images reveal otherwise normal alignment of the cervical spine. There is no prevertebral soft tissue swelling. IMPRESSION: 1. Likely acute type III odontoid fracture. This fracture extends into the right lateral mass of C2 and into the right vertebral artery foramen. For this reason consider CT angiogram of the neck to better evaluate for right vertebral artery injury. Dr. Ernandez was made aware of this finding and recommendation by myself by phone on 09/20/2018 at 2:29 AM. 2. Diffuse degenerative disc disease and degenerative facet disease throughout the cervical spine. Electronically signed by: Robb Banegas 09/20/2018 2:30 AM CDT
--- NOTE | 2018-09-20 02:46 | ED.PDOC ---
History of Present Illness - General Chief Complaint: Trauma Stated Complaint: fall with upper neck pain, head lac Time Seen by Provider: 09/20/18 01:11 Source: patient Exam Limitations: no limitations - History of Present Illness Initial Comments: the patient is a 78-year-old male presenting to the emergency room secondary to having slipped and fallen while getting out of bed tonight. He fell and hit his head on a dresser. He has a very small abrasion to the left side of his scalp that has bled some. No loss of consciousness. He does have some neck pain. He is neurologically intact. He is alert pleasant and cooperative. He moves all extremities well. Pain is in his upper neck. Timing/Duration: unsure Severity: moderate Improving Factors: immobilization Worsening Factors: movement Associated Symptoms: headaches Allergies/Adverse Reactions: Allergies Cephalosporins Allergy (Severe, Verified 09/20/18 01:28) Rash Penicillins Allergy (Severe, Verified 09/20/18 01:28) Rash Codeine Allergy (Intermediate, Verified 09/20/18 01:28) Other Itching Lactose Allergy (Verified 03/29/18 13:29) Morphine Allergy (Verified 09/20/18 01:28) Tramadol Adverse Reaction (Verified 03/29/18 13:32) Other states made him have nightmares Home Medications: Ambulatory Orders Allopurinol [Zyloprim] 300 mg PO BID 09/27/12 Omeprazole 20 mg PO BID 09/27/12 Cholecalciferol [Vitamin D3] 1,000 unit PO DAILY 04/20/16 Diphenhydramine HCl [Benadryl] 25 mg PO PRN PRN 04/20/16 Nabumetone 750 mg PO BID 04/20/16 Gabapentin 900 mg PO TID 11/27/16 Metoprolol Succinate [Toprol Xl] 50 mg PO DAILY 11/27/16 Lisinopril 20 mg PO DAILY 05/04/17 Escitalopram Oxalate 10 mg PO DAILY 03/28/18 Naproxen Sodium [Aleve] 220 mg PO DAILY 03/28/18 Cyclobenzaprine HCl [Flexeril] 10 mg PO Q8H PRN #30 tab 03/31/18 HYDROcodone 10MG/APAP 325MG [[place] 10/325] 1 ea PO Q4H PRN tab 03/31/18 Review of Systems - Review of Systems Constitutional: States: no symptoms reported EENTM: States: no symptoms reported Respiratory: States: no symptoms reported Cardiology: States: no symptoms reported Gastrointestinal/Abdominal: States: no symptoms reported Genitourinary: States: no symptoms reported Musculoskeletal: States: neck pain Skin: States: no symptoms reported Neurological: States: headache Endocrine: States: no symptoms reported All other Systems: No Change from Baseline Past Medical History (General) - Patient Medical History Hx Seizures: No Hx Stroke: No Hx Dementia: No Hx Asthma: Yes Hx of COPD: No Hx Cardiac Disorders: No Hx Congestive Heart Failure: No Hx Pacemaker: No Hx Hypertension: Yes Hx Thyroid Disease: No Hx Diabetes: No Hx Gastroesophageal Reflux: Yes Hx Renal Disease: No Hx Cancer: No Hx of HIV: No Hx Hepatitis C: No Hx MRSA: No - Vaccination History Hx Tetanus, Diphtheria Vaccination: Yes Hx Influenza Vaccination: Yes - 2016 Hx Pneumococcal Vaccination: Yes - Social History Hx Tobacco Use: Yes - quit in 1968 Hx Alcohol Use: Yes - drinks 2-3 liquor drinks daily. Hx Substance Use: No Hx Physical Abuse: No Hx Emotional Abuse: No Family Medical History - Family History Mother Family History: Unknown Living Status: Hx Family Asthma: No Hx Family Congestive Heart Failure: No Hx Family Hypertension: Yes Hx Family Stroke: No Hx Cardiac Disease: No Hx Family Diabetes: No Hx Family Cancer: Yes - breast,esophagus Physical Exam - Physical Exam General Appearance: Alert, Comfortable, No apparent distress Eye Exam: bilateral normal Ears, Nose, Throat: hearing grossly normal, normal ENT inspection, normal pharynx Neck: tender lateral, tender midline Respiratory: lungs clear, normal breath sounds, no respiratory distress, no accessory muscle use Cardiovascular/Chest: normal peripheral pulses, regular rate, rhythm, no edema Peripheral Pulses: radial,right: 2+, radial,left: 2+ Gastrointestinal/Abdominal: non tender, soft Rectal Exam: deferred Back Exam: no CVA tenderness, no vertebral tenderness Extremity: normal range of motion, non-tender, normal inspection, no pedal edema, normal capillary refill, other - the patient walks with a slightly unsteady gait with his right foot turned out a little bit. He reports that this is not new. Neurologic: inspector process II-XII nml as tested, alert, normal mood/affect, oriented x 3 Skin Exam: normal color Comments: Vital Signs - 24 hr 09/20/18 09/20/18 01:06 02:00 Temperature 97.8 F 97.2 F L Pulse Rate [ 61 60 monitor] Respiratory 20 14 Rate Blood Pressure 182/92 146/71 [Right Arm] O2 Sat by Pulse 97 94 L Oximetry Progress - Progress Progress: 09/20/18 02:53 the patient is a 78-year-old male presenting to the emergency room secondary to a fall at home tonight. He appears to have sustained a C2 fracture involving the odontoid process extending down to the right body of the vertebra and to the vertebral artery foramen. No evidence of any neurovascular compromise clinically on the patient at this time. I have discussed the patient and his fracture with the neurosurgeon preparation plant repairer at [facility], Dr. Simpson who assures me that this is not an operative case. Recommendation is for extended cervical collar use. We only have temporary collars here. He will be written for a more permanent collar to pickle solution maker in the morning. For now the patient is going to receive a small dose of IV steroid and be watched for the next few hours to make sure that there are no neurological changes. We will consider doing a CT angiogram if renal function permits once lab work is returned. the patient appears to be doing well at this time. 09/20/18 07:17 the patient has continued to do well. no overt neurological changes. there was a significant delay both in the laboratory work and the CT angiogram due to technical difficulties. CT angiogram of the neck did show significant stenosis or occlusion of the right vertebral artery consistent with the acute injury. No extravasation of contrast. I'm not entirely certain whether or not this injury warrants intervention from a vascular standpoint. He appears to be neurologically at his baseline however it is possible that he may still be having some small flow through the right vertebral artery maintaining his current neurological status. It is also possible that it is already completely occluded and collateral circulation is compensating well. I'm transferring the patient to [facility] for neurological consultation. He is receiving a dose of heparin here in case the first scenario is true. There is no indication of extravasation of contrast that would indicate a laceration of the artery, which would certainly be a contraindication for the heparin. Transferring for her level of care/specialty care. I have discussed the patient with Drs. Vickers and Keon at the receiving facility. He is not being sent to [facility], our normal referral facility due to facility limitations in vascular intervention for this patient. - Results/Orders Results/Orders: CT of the head shows no acute intracranial processes. No evidence of hemorrhage. No evidence of acute stroke. CT scan of the cervical spine shows what appears to be a type III odontoid fracture with extension into the right lateral mass and into the right vertebral artery foramen. CT angiogram was recommended if arterial compromise was clinically suspected. At this time there is no evidence of any arterial compromise based on symptoms. The patient is ambulating apparently at his baseline ability. CT angiogram of the neck was performed showing significant stenosis or occlusion of the right vertebral artery consistent with injury related to an acute C2 fracture. No extravasation of contrast. See details of report. - EKG/XRAY/CT CT Ordered: Yes Departure - Departure Clinical Impression: Closed cervical spine fracture Qualifiers: Encounter type: initial encounter Cervical vertebra fracture level: C2 Fracture morphology: other fracture Fracture alignment: nondisplaced Qualified Code(s): S12.191A - Other nondisplaced fracture of second cervical vertebra, initial encounter for closed fracture Fall at home Qualifiers: Encounter type: initial encounter Qualified Code(s): W19.XXXA - Unspecified fall, initial encounter; Y92.009 - Unspecified place in unspecified non- institutional (private) residence as the place of occurrence of the external cause Vertebral artery stenosis, asymptomatic Qualifiers: Laterality: right Qualified Code(s): I65.01 - Occlusion and stenosis of right vertebral artery Disposition: Transfer to Hospital Departure Forms: ED Discharge - Pt. Copy, Patient Portal Self Enrollment Instructions: DI for Trauma Referrals: Idris Espitia MD [Primary Care Provider] - 1-2 Weeks Home Medications: Ambulatory Orders Allopurinol [Zyloprim] 300 mg PO BID 09/27/12 Omeprazole 20 mg PO BID 09/27/12 Cholecalciferol [Vitamin D3] 1,000 unit PO DAILY 04/20/16 Diphenhydramine HCl [Benadryl] 25 mg PO PRN PRN 04/20/16 Nabumetone 750 mg PO BID 04/20/16 Gabapentin 900 mg PO TID 11/27/16 Metoprolol Succinate [Toprol Xl] 50 mg PO DAILY 11/27/16 Lisinopril 20 mg PO DAILY 05/04/17 Escitalopram Oxalate 10 mg PO DAILY 03/28/18 Naproxen Sodium [Aleve] 220 mg PO DAILY 03/28/18 Cyclobenzaprine HCl [Flexeril] 10 mg PO Q8H PRN #30 tab 03/31/18 HYDROcodone 10MG/APAP 325MG [[place] ] 1 ea PO Q4H PRN tab 03/31/18 Transfer to Outside Facility - Transfer Information Accepting Provider:: dr lowry Accepting Facility: [facility] Reason for Transfer: required specialist not available
[2018-09-20] MEDS ORDERED: DEXAMETHASONE INJ 4 MG/ML VIAL IV ONE (03:33)
[2018-09-20] MEDS ORDERED: ACETYLCYSTEIN 20 % 6,000 MG/30 ML VIAL PO ONE (04:20)
[2018-09-20] MEDS ORDERED: SODIUM CHLORIDE 0.9% 1000ML 1,000 ML IVS ONE (04:23)
--- NOTE | 2018-09-20 06:33 | CT ---
CT angiogram neck with contrast on 09/20/2018 CLINICAL INDICATION: Type III odontoid fracture extending into right vertebral artery foramen, evaluate for vertebral artery injury TECHNIQUE: Multiple axial images are obtained throughout the neck following the administration of IV contrast. Computer generated 3-D reconstructions/MIPS were performed. NASCET criteria was utilized for stenosis evaluation in the neck. This exam was performed according to our departmental dose-optimization program, which includes automated exposure control, adjustment of the mA and/or kV according to patient size and/or use of iterative reconstruction technique. Total DLP is 450.87 mGy*cm. COMPARISON: CT cervical spine from 09/20/2018 and carotid ultrasound from 01/04/2018 FINDINGS: There is a normal appearance of the aortic arch. Incidental bovine configuration of the aortic arch is noted as a normal variant with no evidence of stenosis of the proximal great vessels off the aorta. Incidental note is made of the left vertebral artery originating off the aortic arch. The proximal right vertebral artery is dominant. The proximal right vertebral artery then tapers to absent contrast in the lower cervical region with no contrast throughout most of the right vertebral artery with some reconstitution of flow distally just proximal to the basilar artery in its lower intracranial portion. The findings are consistent with acute vertebral artery injury related to the right-sided cervical spine fracture at C2 causing significant stenosis or occlusion of much of the right vertebral artery. The left vertebral artery is patent with no left vertebral artery stenosis. The basilar artery appears unremarkable. Fortunately the patient has a origin of the right MATERIALS RECYCLER with also significant left posterior communicating artery. The visualized false pass of [place] appears unremarkable. There is minimal calcified plaque in the right common carotid artery without significant stenosis in the right common carotid artery. There is mild calcified plaque in the right carotid bulb and proximal right ICA without significant stenosis of the right ICA. There is calcified plaque scattered throughout the left common carotid artery without significant stenosis of the left common carotid artery. There is calcified plaque in the left carotid bulb and proximal left ICA without significant stenosis of the left ICA. The patient's type III odontoid fracture is again noted. No neck mass, fluid collection or adenopathy is noted. IMPRESSION: 1. Findings consistent with vertebral artery injury with occlusion or significant stenosis of large portion of the right vertebral artery as above likely related to the C2 fracture. 2. No other evidence of significant carotid or vertebral artery stenosis. Electronically signed by: Robb Banegas 09/20/2018 6:31 AM CDT
[2018-09-20] MEDS ORDERED: HEPARIN SODIUM (PORCINE) 5,000 U/ML VIAL IV ONE (07:03)
[2018-09-20 08:08] VITALS: BP 176/94
[2018-09-20 08:41] VITALS: TEMP 96.8; O2SAT 95
== END 2018-09-20 08:35 | disposition short-term general hospital (02) ==
LOC: ER 01:06
DX: S12.191A Other nondisplaced fracture of second cervical vertebra, initial encounter for closed fracture (principal); I65.01 Occlusion and stenosis of right vertebral artery; S00.91XA Abrasion of unspecified part of head, initial encounter; J45.909 Unspecified asthma, uncomplicated; I10 Essential (primary) hypertension; K21.9 Gastro-esophageal reflux disease without esophagitis; W01.190A Fall on same level from slipping, tripping and stumbling with subsequent striking against furniture, initial encounter; Z87.891 Personal history of nicotine dependence; Z79.899 Other long term (current) drug therapy; Z88.1 Allergy status to other antibiotic agents; Z88.0 Allergy status to penicillin; Z88.5 Allergy status to narcotic agent; Y92.9 Unspecified place or not applicable
CPT/HCPCS: 36415; 70450; 70498; 72125; 80053; 85025; J1100; J1644; J7030

== ENCOUNTER → 2018-11-30 | Outpatient (CLI) | payer MEDICARE ==
--- NOTE | 2018-11-30 11:10 | RAD ---
EXAM DESCRIPTION: Shoulder,Right 2 or More Views CLINICAL HISTORY: PAIN IN RIGHT SHOULDER COMPARISON: None. TECHNIQUE: 4 views right FINDINGS: A reverse right shoulder arthroplasty is observed. Mild degenerative changes are observed in the acromioclavicular joint no hardware failure is detected. No evidence for fracture or dislocation is seen. IMPRESSION: Reverse right shoulder arthroplasty. No evidence of complication is detected. Electronically signed by: Antione Thomas MD 11/30/2018 11:08 AM CDT
== END ==
LOC: RAD 09:49
PROVIDERS: ATTEND Orthopaedic Surgery
DX: M25.511 Pain in right shoulder (principal); Z96.611 Presence of right artificial shoulder joint

== ENCOUNTER → 2018-12-09 | Outpatient (CLI) | payer MEDICARE ==
--- NOTE | 2018-12-09 12:11 | MRI ---
EXAM DESCRIPTION: Cervical Spine CLINICAL HISTORY: 78 years Male, CERVICAL SPONDYLOSIS COMPARISON: CT cervical spine dated 09/20/2018. TECHNIQUE: Multiplanar, multiecho imaging of the cervical spine was performed without gadolinium administration. FINDINGS: T1 hypointense and STIR hyperintense signal is identified in the odontoid process of C2 vertebral body, most likely representing a healing fracture. There appears to be some bony union in the interim. However this is better evaluated on CT rather than MRI. The atlantoaxial joint space is normal, with no evidence of widening. Multilevel intervertebral disc space narrowing is noted. The visualized spinal cord demonstrates no signal abnormality. The visualized prevertebral and paravertebral soft tissues appear grossly unremarkable. C2-C3: No evidence of disc herniation. No significant canal stenosis or neural foraminal narrowing. C3-C4: 5 mm anterolisthesis of C3 over C4 is noted. 7 mm posterior disc bulge is identified with no central canal stenosis. There is severe bilateral neural foraminal narrowing secondary to uncovertebral joint arthropathy. C4-C5: 5 mm posterior disc bulge with no central canal stenosis. Moderate to severe right and mild left neural foraminal narrowing is identified secondary to uncovertebral joint arthropathy. C5-C6: 4 mm anterolisthesis of C5 over C6. 6 mm posterior disc bulge with resultant mild central canal stenosis. Severe right and moderate to severe left neural foraminal narrowing is identified secondary to uncovertebral joint arthropathy. C6-C7: Posterior disc osteophyte complex with resultant mild to moderate central canal stenosis. The thecal sac measures 8.5 mm in anteroposterior dimension. Moderate to severe bilateral neural foraminal narrowing is identified secondary to facet arthropathy. C7-T1: Mild bilateral neural foraminal narrowing secondary to uncovertebral joint arthropathy. IMPRESSION: 1. Bone marrow edema is noted in the odontoid process of C2 vertebral body, consistent with healing fracture. Some bony union is visualized, however this is better evaluated on CT rather than MRI. 2. Multilevel degenerative disc disease and uncovertebral joint arthropathy is noted throughout the cervical spine with variable degrees of neural foraminal narrowing as detailed above. Electronically signed by: Jennifer Nielsen MD 12/09/2018 12:09 PM CDT
== END ==
LOC: MRI 09:44
PROVIDERS: ATTEND Orthopaedic Surgery
DX: M47.812 Spondylosis without myelopathy or radiculopathy, cervical region (principal); S12.121A Other nondisplaced dens fracture, initial encounter for closed fracture; M50.30 Other cervical disc degeneration, unspecified cervical region; I65.01 Occlusion and stenosis of right vertebral artery

== ENCOUNTER → 2019-01-30 | Outpatient (CLI) | payer MEDICARE ==
--- NOTE | 2019-01-30 13:52 | RAD ---
EXAM DESCRIPTION: Shoulder,Right 2 or More Views CLINICAL HISTORY: SHOULDER PAIN COMPARISON: 11/30/2018. TECHNIQUE: Four views of the right shoulder. FINDINGS: Changes of right reverse shoulder arthroplasty without hardware fracture or displacement. The hardware alignment is normal. No perihardware lucency or osteolysis. No acute displaced fracture or dislocation of the shoulder. The alignment of the acromioclavicular joint is intact. Mild right acromioclavicular joint osteoarthrosis is present with joint space narrowing, subchondral sclerosis, and marginal osteophyte formation. Old right-sided rib fractures are unchanged. IMPRESSION: 1. No acute osseous abnormality. Stable right shoulder reverse arthroplasty without complication. 2. Mild right acromioclavicular joint osteoarthrosis. Electronically signed by: Buck Jang DO 01/30/2019 1:51 PM CDT
== END ==
LOC: RAD 11:53
PROVIDERS: ATTEND Family Medicine
DX: M19.011 Primary osteoarthritis, right shoulder (principal); Z98.890 Other specified postprocedural states; Z96.611 Presence of right artificial shoulder joint

== ENCOUNTER → 2019-03-14 | Outpatient (CLI) | payer MEDICARE | LOC: LAB.O 15:13 | PROVIDERS: ATTEND Orthopaedic Surgery | DX: M25.511 Pain in right shoulder (principal) ==

== ENCOUNTER → 2019-03-16 | Outpatient (CLI) | payer MEDICARE ==
--- NOTE | 2019-03-16 14:38 | CT ---
Study: CT of the Right Shoulder. Indication: PAIN IN RIGHT SHOULDER Technique: Axial CT of the right shoulder was performed without contrast. Coronal and sagittal reformats performed. This exam was performed according to our departmental dose-optimization program, which includes automated exposure control, adjustment of the mA and/or kV according to patient size and/or use of iterative reconstruction technique. Comparison: Radiographs January 30, 2019. CT right shoulder March 01, 2018. Findings: Placement of a reverse right total shoulder arthroplasty noted. Pronounced streak artifact from the surgical construct present which does degrade the examination. No gross periprosthetic fracture identified. No osteolysis identified. Severe AC joint osteoarthritis. Type I acromion with moderate lateral downsloping. No acromial fracture identified. Moderate atrophy and grade 3 fatty infiltration rotator cuff musculature with likely chronic rotator cuff tendon tearing. Impression: Reverse right total shoulder arthroplasty without evidence of periprosthetic fracture or osteolysis. Severe AC joint osteoarthritis. Lateral downsloping acromion. Suspected chronic rotator cuff tendon tearing with moderate atrophy and grade 3 fatty infiltration of the rotator cuff musculature. Electronically signed by: Edgardo Hernandez MD 03/16/2019 2:37 PM CDT
== END ==
LOC: CT 10:00
PROVIDERS: ATTEND Orthopaedic Surgery
DX: M19.011 Primary osteoarthritis, right shoulder (principal); Z96.611 Presence of right artificial shoulder joint; M25.811 Other specified joint disorders, right shoulder

== ENCOUNTER → 2019-09-28 | Outpatient (CLI) | payer OTHER | LOC: LAB.O 10:18 | PROVIDERS: ATTEND Orthopaedic Surgery | DX: Z01.818 Encounter for other preprocedural examination (principal) ==

== ENCOUNTER → 2019-10-02 | Outpatient (CLI) | payer OTHER ==
--- NOTE | 2019-10-02 10:45 | RAD ---
EXAM DESCRIPTION: Pelvis CLINICAL HISTORY: 79 years Male, PAIN IN RIGHT HIP PAIN IN LEFT HIP COMPARISON: None. FINDINGS: Degenerative disc disease in lower lumbar spine with prominent spurring. Sacrum appears intact. Intact bones of the pelvic ring. No hip dislocation or fracture. Prominent degenerative changes in the hips and pubic symphysis with narrowing of the SI joints. Pelvic calcifications are thought to be vascular. IMPRESSION: Degenerative changes in the lower lumbar spine and hips. Electronically signed by: Zechariah Garza MD 10/02/2019 10:43 AM CDT
--- NOTE | 2019-10-02 10:47 | RAD ---
2 radiographs right hip Indication: PAIN IN RIGHT HIP Comparison: None. Impression: No gross acute fracture identified. Evaluation for fracture is limited given the degree of osteopenia. If high clinical concern for acute fracture, correlation with MRI recommended given its greater sensitivity in the osteopenic patient. If the patient cannot tolerate MRI imaging or more urgent imaging is required, CT could be performed, however it is less sensitive in the osteopenic patient when compared to MRI. Moderate right hip osteoarthritis with joint space narrowing and osteophyte formation. The femoral neck is shortened. There is loss of normal sphericity anterior superior margin of the femoral head neck junction. Osteopenia. If this is a new finding, DEXA scan recommended as well as evaluation for possible osteoporosis treatment. Electronically signed by: Edgardo Hernandez MD 10/02/2019 10:45 AM CDT
--- NOTE | 2019-10-02 15:52 | MRI ---
EXAM DESCRIPTION: Lumbar Spine w/o Contrast : Magnetic Resonance Imaging. CLINICAL HISTORY: RADICULOPATHY LUMBAR REGION COMPARISON: MRI scan lumbar spine without contrast June 2017. TECHNIQUE: Multiplanar, multiple standard sequences, non contrast MRI, lumbar spine. FINDINGS: L5-S1: The disc is well visualized on axial T2 series 501, image 3. Moderate to severe disc space loss moderate to advanced endplate reactive changes in the midline into the left of midline. Disc spur complex posteriorly in the midline impressing on the thecal sac with 9 mm grade 1 retrolisthesis. Anterior disc bulge and spurs. Bilateral subarticular recess stenosis. AP canal diameter 7 Mm. Degenerative hypertrophy of the flavum ligaments and facet joints (canal elements). Bilateral foraminal stenosis more left than right. No interval change from the prior study. L4-L5: Marked disc space loss in the midline into the left of midline. Disc spur complexes in protruding anteriorly into the left of midline with encroachment on the left foramen and left L4 nerve with stenosis. Hypertrophic degenerative changes in the canal elements. AP canal diameter 10 mm. Bilateral narrowing of the subarticular recesses. Mild to moderate narrowing of the right foramen. Left foraminal stenosis is increased since the prior study. L3-L4: Disc desiccation and minimal disc space loss with disc osteophyte bulge anterior and to the right of midline. Schmorl's node superior L4 endplate. Minimal posterior disc bulge. Bilateral subarticular recess narrowing more left than right. Degenerative hypertrophic changes in the canal elements with narrowing of the transverse diameter of the canal. Moderate to severe narrowing of the right foramen and borderline left foraminal stenosis. Stable from the prior study. L2-L3: Minimal disc space loss on the left gradually decreasing through the right with advanced spondylosis anteriorly into the right of midline. Disc spur complex resulting in right foraminal stenosis and impingement of the right L2 nerve. This is progressed since the prior study. Bilateral narrowing of the subarticular recesses. Degenerative hypertrophy of the canal elements. Mild canal narrowing. L1-L2: Disc desiccation and minimal disc space loss. Moderate spondylosis and disc space loss to the left of midline and in the midline more severe to the right. Stenosis left foramen has progressed since the prior study; severe narrowing versus borderline stenosis on the right. Posterior broad-based disc bulge. With spurs. Right subarticular recess stenosis has progressed since the prior study. Degenerative hypertrophy of the canal elements. Mild canal narrowing. Conus terminates at this level. T12-L1: Disc desiccation and minimal disc space loss. No posterior bulge. Small endplate concavities are not acute. Minimal degenerative hypertrophy of the canal elements. Canal and foramina are patent. No interval change. L1-L4 levoscoliosis stable Paravertebral soft tissues demonstrating muscle atrophy. Distal cord normal signal and caliber. . Vertebral bodies are not compressed at any level. IMPRESSION: 1. Again demonstrated are multiple levels of disc desiccation, endplate spondylosis, degenerative hypertrophy of the flavum ligaments and facet joints (canal elements). 2. Right subarticular recess stenosis at L1-L2 has progressed since the prior study, with possible compromise right L2 nerve. Left foraminal stenosis also increased at this level with possible compromise left L1 nerve. 3. Disc spur complex at L2-L3 resulting in right foraminal stenosis in impingement of the right L2 nerve has progressed since the prior study. 4. No foraminal stenosis at L4-L5 has increased since the prior study with possible compromise left L4 nerve. 5. Stable bilateral subarticular recess stenosis at L5-S1 and moderate central canal stenosis. Electronically signed by: Edson Ayoub MD 10/02/2019 3:49 PM CDT
== END ==
LOC: MRI 09:12
PROVIDERS: ATTEND Orthopaedic Surgery
DX: M47.26 Other spondylosis with radiculopathy, lumbar region (principal); M46.96 Unspecified inflammatory spondylopathy, lumbar region; M51.36 Other intervertebral disc degeneration, lumbar region; M24.28 Disorder of ligament, vertebrae; M85.851 Other specified disorders of bone density and structure, right thigh; M16.11 Unilateral primary osteoarthritis, right hip; M25.751 Osteophyte, right hip; M16.12 Unilateral primary osteoarthritis, left hip; M48.061 Spinal stenosis, lumbar region without neurogenic claudication; M48.07 Spinal stenosis, lumbosacral region; M25.78 Osteophyte, vertebrae

== ENCOUNTER 2019-10-19 16:10 | Emergency (ER) | payer OTHER ==
[2019-10-19 16:28] VITALS: TEMP 97.9; O2SAT 96
[2019-10-19] MEDS: diazePAM 2 MG TAB PO ONE (16:36)
[2019-10-19] MEDS: predniSONE 20 MG TAB PO ONE (16:36)
[2019-10-19] MEDS: KETOROLAC TROMETHAMINE INJ 30 MG/ML VIAL IM ONE (16:36)
[2019-10-19] MEDS: fentaNYL PATCH 25 MCG/HR 1 EA PATCH TD ONE (16:39)
--- NOTE | 2019-10-19 17:51 | ED.PDOC ---
History of Present Illness - General Chief Complaint: Back Pain or Injury Stated Complaint: lower back pain Time Seen by Provider: 10/19/19 16:11 Source: patient Exam Limitations: no limitations - History of Present Illness Initial Comments: Patient is an 79-year-old male presents emergency room secondary to severe progressive back pain. The patient has been worked up with Dr. Pate and has received an MRI of his low back, where the pain is on the 11th of this month. 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 He is currently taking approximately 6 tablets of hydrocodone 5 mg daily. He has not had any recent injuries. No new symptoms other than the pain simply increasing. He was unable to get adequate relief wit h his home medications today so he presents to the emergency room. 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 No new symptoms just worsening of symptoms. The patient reports that he is only allergic to morphine, not other pain medication such as fentanyl, Demerol or Dilaudid. He has no difficulty with hydrocodone. Timing/Duration: constant, getting worse Severity: severe Improving Factors: immobilization Worsening Factors: movement Associated Symptoms: denies symptoms Allergies/Adverse Reactions: Allergies Cephalosporins Allergy (Severe, Verified 10/19/19 16:31) Rash Penicillins Allergy (Severe, Verified 10/19/19 16:31) Rash Codeine Allergy (Intermediate, Verified 10/19/19 16:31) Other Itching Lactose Allergy (Verified 10/19/19 16:31) Morphine Allergy (Verified 10/19/19 16:31) Tramadol Adverse Reaction (Verified 10/19/19 16:31) Other states made him have nightmares Home Medications: Ambulatory Orders Allopurinol [Zyloprim] 300 mg PO BID 09/27/12 Omeprazole 20 mg PO BID 09/27/12 Cholecalciferol [Vitamin D3] 1,000 unit PO DAILY 04/20/16 Diphenhydramine HCl [Benadryl] 25 mg PO PRN PRN 04/20/16 Nabumetone 750 mg PO BID 04/20/16 Gabapentin 900 mg PO TID 11/27/16 Metoprolol Succinate [Toprol Xl] 50 mg PO DAILY 11/27/16 Lisinopril 20 mg PO DAILY 05/04/17 Escitalopram Oxalate 10 mg PO DAILY 03/28/18 Naproxen Sodium [Aleve] 220 mg PO DAILY 03/28/18 Cyclobenzaprine HCl [Flexeril] 10 mg PO Q8H PRN #30 tab 03/31/18 HYDROcodone 10MG/APAP 325MG [[place] 10/325] 1 ea PO Q4H PRN tab 03/31/18 predniSONE [Prednisone] 20 mg PO DAILY #5 tab 10/19/19 Review of Systems - Review of Systems Constitutional: States: no symptoms reported EENTM: States: no symptoms reported Respiratory: States: no symptoms reported Cardiology: States: no symptoms reported Gastrointestinal/Abdominal: States: no symptoms reported Genitourinary: States: no symptoms reported Musculoskeletal: States: see HPI Skin: States: no symptoms reported Neurological: States: anxiety Endocrine: States: no symptoms reported All other Systems: No Change from Baseline Past Medical History (General) - Patient Medical History Hx Seizures: No Hx Stroke: No Hx Dementia: No Hx Asthma: Yes Hx of COPD: No Hx Cardiac Disorders: No Hx Congestive Heart Failure: No Hx Pacemaker: No Hx Hypertension: Yes Hx Thyroid Disease: No Hx Diabetes: No Hx Gastroesophageal Reflux: Yes Hx Renal Disease: No Hx Cancer: Yes - Skin (malignant melanoma) Hx of HIV: No Hx Hepatitis C: No Hx MRSA: No - Vaccination History Hx Tetanus, Diphtheria Vaccination: Yes Hx Influenza Vaccination: Yes Hx Pneumococcal Vaccination: Yes Immunizations Up to Date: Yes - Social History Hx Tobacco Use: No Hx Alcohol Use: Yes Hx Substance Use: No Hx Substance Use Treatment: No Hx Depression: No Hx Physical Abuse: No Hx Emotional Abuse: No - Activities of Daily Living Hospice Agency (if applicable):: None - Female History Patient is a Female of Child Bearing Age (10 -59 yrs old): No Patient : No - Triage Comment ED Triage Comment: pt voices lower back pain that is progressively worsening over the last few months and weeks. pt voices he takes hydrocodone for pain control. Family Medical History - Family History Mother Family History: Unknown Living Status: Hx Family Asthma: No Hx Family Congestive Heart Failure: No Hx Family Hypertension: Yes Hx Family Stroke: No Hx Cardiac Disease: No Hx Family Diabetes: No Hx Family Cancer: Yes - breast,esophagus Physical Exam - Physical Exam General Appearance: Alert, Obvious distress Eye Exam: bilateral normal Ears, Nose, Throat: hearing grossly normal, normal ENT inspection Neck: non-tender, full range of motion, supple Respiratory: no respiratory distress, no accessory muscle use Cardiovascular/Chest: normal peripheral pulses, no edema, other - Regular rate Peripheral Pulses: radial,right: 2+, radial,left: 2+ Gastrointestinal/Abdominal: non tender, soft Rectal Exam: deferred Back Exam: other - The patient has diffuse discomfort to palpation over the low back from the level of L3-S1. There is obvious adjacent muscle spasm. No obvious new deformity. No laceration. No bruising. 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 The patient was simply having an exacerbation of his chronic back pain today. We did place a 25 mcg fentanyl patch on the patient. He is not to take another hydrocodone for at least the next 6 to 8 hours while the patch is getting on board. After that he can take the hydrocodone as previously instructed additionally if needed. He does need to be careful as this medication, like the hydrocodone can cause constipation and drowsiness. The patient also received 1 dose of Toradol here only due to his chronic renal insufficiency. This seemed to help more than anything else. He also received a small dose of muscle relaxer. The patient will be allowed to leave with a fentanyl patch in place. It should be effective for 72 hours. I do want him to follow-up with his primary care doctor tomorrow to establish a further plan of care for the near future. I will also write him for 5 days of oral prednisone to reduce inflammation as the Toradol seems to have helped significantly. He needs to ambulate carefully to prevent falls. ER warnings are given for any worsening. [email or web address] [email or web address] Departure - Departure Clinical Impression: Acute exacerbation of chronic low back pain Disposition: Discharge to Home or Self Care Condition: Fair Departure Forms: ED Discharge - Pt. Copy, Patient Portal Self Enrollment Instructions: DI for Low Back Pain, DI for Back Pain With Sciatica Diet: regular diet Activity: increase activity as tolerated Referrals: Ambrose Hernandez MD [Primary Care Provider] - 1-2 Weeks Prescriptions: predniSONE [Prednisone] 20 mg PO DAILY #5 tab Home Medications: Ambulatory Orders Allopurinol [Zyloprim] 300 mg PO BID 09/27/12 Omeprazole 20 mg PO BID 09/27/12 Cholecalciferol [Vitamin D3] 1,000 unit PO DAILY 04/20/16 Diphenhydramine HCl [Benadryl] 25 mg PO PRN PRN 04/20/16 Nabumetone 750 mg PO BID 04/20/16 Gabapentin 900 mg PO TID 11/27/16 Metoprolol Succinate [Toprol Xl] 50 mg PO DAILY 11/27/16 Lisinopril 20 mg PO DAILY 05/04/17 Escitalopram Oxalate 10 mg PO DAILY 03/28/18 Naproxen Sodium [Aleve] 220 mg PO DAILY 03/28/18 Cyclobenzaprine HCl [Flexeril] 10 mg PO Q8H PRN #30 tab 03/31/18 HYDROcodone 10MG/APAP 325MG [[place] 10/325] 1 ea PO Q4H PRN tab 03/31/18 predniSONE [Prednisone] 20 mg PO DAILY #5 tab 10/19/19 Additional Instructions: The patient is an 79-year-old male with progressive low back pain. The patient was simply having an exacerbation of his chronic back pain today. We did place a 25 mcg fentanyl patch on the patient. He is not to take another hydrocodone for at least the next 6 to 8 hours while the patch is getting on board. After that he can take the hydrocodone as previously instructed additionally if needed. He does need to be careful as this medication, like the hydrocodone can cause constipation and drowsiness. The patient also received 1 dose of Toradol here only due to his chronic renal insufficiency. This seemed to help more than anything else. He also received a small dose of muscle relaxer. The patient will be allowed to leave with a fentanyl patch in place. It should be effective for 72 hours. I do want him to follow-up with his primary care doctor tomorrow to establish a further plan of care for the near future. I will also write him for 5 days of oral prednisone to reduce inflammation as the Toradol seems to have helped significantly. He needs to ambulate carefully to prevent falls. ER warnings are given for any worsening.
[2019-10-19 18:26] VITALS: BP 129/80
== END 2019-10-19 18:26 | disposition home or self-care (01) ==
LOC: ER 16:10
DX: G89.29 Other chronic pain (principal); M54.5 Low back pain; I10 Essential (primary) hypertension; Z79.899 Other long term (current) drug therapy

== ENCOUNTER 2019-10-27 16:59 | Emergency (ER) | payer OTHER ==
[2019-10-27] MEDS ORDERED: LIDOCAINE 1% W/ EPINEPHRINE 20 ML VIAL INJ ONE (17:15)
[2019-10-27 17:36] VITALS: TEMP 96.7
--- NOTE | 2019-10-27 17:58 | RAD ---
EXAM DESCRIPTION: Chest,1 View CLINICAL HISTORY: 79 years Male altered mental status, multiple falls COMPARISON: Two-view chest dated 07/26/2014 TECHNIQUE: Portable AP view of the chest is obtained. FINDINGS IN THE CHEST: Heart: Allowing for magnification factors related to AP portable technique and body habitus, the heart is normal in size and configuration. Vasculature: [There is minimal atherosclerosis of the aortic arch.] There is no evidence of aortic aneurysm or acute findings. The pulmonary vascularity is normal. Mediastinum: Retrocardiac air and fluid-containing moderate-sized viscus again noted and consistent with a hiatal hernia. The Lungs: There is no focal consolidation in the lungs. There is minimal discoid atelectasis in the left lower lung. Pleura: There are no pleural effusions. There are no pneumothoraces. 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 Old fracture deformities of the right fourth and fifth posterolateral ribs again noted. Tubes and catheters: None Chest wall: Unremarkable. Visualized Abdomen: Unremarkable. IMPRESSION: No significant [acute] radiographic abnormalities in the chest. Moderate hiatal hernia. Remainder of findings as described above. Electronically signed by: Zara Vo MD 10/27/2019 5:57 PM CDT
--- NOTE | 2019-10-27 18:04 | CT ---
PROCEDURE: CT Head Without Intravenous Contrast CLINICAL INDICATION: The patient is 79 years years old, Male; altered mental status, fall, head injury TECHNIQUE: Axial computed tomography images of the head/brain without intravenous contrast. Sagittal and coronal reformatted images were created and reviewed. This CT exam was performed using one or more of the following dose reduction techniques: automated exposure control, adjustment of the mA and/or kV according to patient size, and/or use of iterative reconstruction technique. COMPARISON: CT head dated 08/26/2019 FINDINGS: BRAIN: No intracerebral or extracerebral mass lesions are identified. There is mild patchy hypodensity of the cerebral white matter which is nonspecific but likely secondary to chronic microvascular ischemic changes in end vessel distributions. Funk/white matter distinction is maintained. There is no evidence of intracranial hemorrhage. There is no evidence of acute territorial infarct. (It should be noted that acute infarct may not be discernible in the first [address] ) MIDLINE SHIFT: There is no shift of the midline structures. VENTRICLES: There is prominence of the ventricles, sulci, cerebellar folia, and basilar cisterns consistent with volume loss. BONES/JOINTS: There is no acute calvarial abnormality or other discernible acute osseous abnormalities. 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 VASCULATURE: There is atherosclerotic calcification in the siphons of the bilateral internal carotid arteries. SINUSES: The visualized paranasal sinuses are clear. There is a small right amira bullosa which can be seen with chronic rhinitis. MASTOID AIR CELLS: The mastoids and middle ears are clear. ORBITS: There are senescent changes in the orbits bilaterally. Optic nerve drusen noted bilaterally. DENTAL: The maxilla is edentulous. IMPRESSION: 1. No acute intracranial abnormality. (It should be noted that acute infarct may not be discernible in the first [address]) a follow-up head ct or mri is recommended if neurologic symptoms persist. 2. Volume loss. 3. Nonspecific white matter lucency, most likely deep white matter ischemic changes. Demyelination and gliosis also in the differential. 4. ASVD. 5. Remainder of findings as discussed above. Electronically signed by: Zara Vo MD 10/27/2019 6:02 PM CDT
--- NOTE | 2019-10-27 18:19 | ED.PDOC ---
History of Present Illness - General Chief Complaint: Laceration Stated Complaint: Head laceration Time Seen by Provider: 10/27/19 17:12 Source: patient, RN notes reviewed, Vital Signs reviewed, family Exam Limitations: no limitations - History of Present Illness Initial Comments: This is an 79-year-old male presenting to the emergency department after a ground-level fall that occurred this morning. Patient states he was in the shower, fell back and hit his head. He denies any loss of consciousness. His home health nurse came to visit him and saw the laceration and recommended he come to the emergency room for management. He was in the emergency room 3 days ago for back pain. He was given a fentanyl patch in addition to his regular hydrocodone. Girlfriend states that he has been somewhat confused since the fall. His fentanyl patch was removed earlier this morning by his PCP. He denies any back or neck pain at this time.He does not take any blood thinners. He denies any symptoms preceding the fall. He denies any chest pain, dizziness, shortness of breath, abdominal pain, vomiting, or diarrhea. He denies any recent illnesses Allergies/Adverse Reactions: Allergies Cephalosporins Allergy (Severe, Verified 10/27/19 17:34) Rash Penicillins Allergy (Severe, Verified 10/27/19 17:34) Rash Codeine Allergy (Intermediate, Verified 10/27/19 17:34) Other Itching Lactose Allergy (Verified 10/27/19 17:34) Morphine Allergy (Verified 10/27/19 17:34) Tramadol Adverse Reaction (Verified 10/27/19 17:34) Other states made him have nightmares Home Medications: Ambulatory Orders RX: Allopurinol [Zyloprim] 300 mg PO BID 09/27/12 RX: Omeprazole 20 mg PO BID 09/27/12 RX: Cholecalciferol [Vitamin D3] 1,000 unit PO DAILY 04/20/16 RX: Diphenhydramine HCl [Benadryl] 25 mg PO PRN PRN 04/20/16 RX: Nabumetone 750 mg PO BID 04/20/16 RX: Gabapentin 900 mg PO TID 11/27/16 RX: Metoprolol Succinate [Toprol Xl] 50 mg PO DAILY 11/27/16 RX: Lisinopril 20 mg PO DAILY 05/04/17 RX: Escitalopram Oxalate 10 mg PO DAILY 03/28/18 RX: Naproxen Sodium [Aleve] 220 mg PO DAILY 03/28/18 RX: Cyclobenzaprine HCl [Flexeril] 10 mg PO Q8H PRN #30 tab 03/31/18 RX: HYDROcodone 10MG/APAP 325MG [Volga 10/325] 1 ea PO Q4H PRN tab 03/31/18 predniSONE [Prednisone] 20 mg PO DAILY #5 tab 10/19/19 HYDROcodone 7.5MG/APAP 325MG [Volga 7.5/325] 1 ea PO PRN 10/27/19 Review of Systems - Review of Systems Constitutional: Denies: chills, fever EENTM: Denies: eye pain, blurred vision, nose pain, throat pain, mouth pain Respiratory: Denies: cough, orthopnea, short of breath, wheezing Cardiology: Denies: chest pain, edema, palpitations, syncope Gastrointestinal/Abdominal: Denies: abdominal pain, constipation, diarrhea, nausea, vomiting Genitourinary: Denies: dysuria, hematuria Musculoskeletal: Denies: back pain, joint pain, joint swelling, muscle pain, neck pain Skin: States: lesions. Denies: rash Neurological: Denies: headache, numbness, paresthesia, pre-existing deficit, tingling, tremors, weakness Endocrine: States: no symptoms reported Hematologic/Lymphatic: States: no symptoms reported Past Medical History (General) - Patient Medical History Hx Seizures: No Hx Stroke: No Hx Dementia: No Hx Asthma: Yes Hx of COPD: No Hx Cardiac Disorders: No Hx Congestive Heart Failure: No Hx Pacemaker: No Hx Hypertension: Yes Hx Thyroid Disease: No Hx Diabetes: No Hx Gastroesophageal Reflux: Yes Hx Renal Disease: No Hx Cancer: Yes - Skin (malignant melanoma) Hx of HIV: No Hx Hepatitis C: No Hx MRSA: No Surgical History: appendectomy - Vaccination History Hx Tetanus, Diphtheria Vaccination: Yes Hx Influenza Vaccination: Yes Hx Pneumococcal Vaccination: Yes - Social History Hx Tobacco Use: No Hx Alcohol Use: Yes Hx Substance Use: No Hx Substance Use Treatment: No Hx Depression: No Hx Physical Abuse: No Hx Emotional Abuse: No - Female History Patient is a Female of Child Bearing Age (10 -59 yrs old): No Patient : No Family Medical History - Family History Mother Family History: Unknown Living Status: Hx Family Asthma: No Hx Family Congestive Heart Failure: No Hx Family Hypertension: Yes Hx Family Stroke: No Hx Cardiac Disease: No Hx Family Diabetes: No Hx Family Cancer: Yes - breast,esophagus Physical Exam - Physical Exam General Appearance: Alert, Comfortable Eye Exam: bilateral normal Ears, Nose, Throat: hearing grossly normal, normal ENT inspection Neck: non-tender, full range of motion, supple Respiratory: chest non-tender, lungs clear, normal breath sounds, no respiratory distress, no accessory muscle use Cardiovascular/Chest: normal peripheral pulses, regular rate, rhythm, no edema, no gallop, no JVD, no murmur Gastrointestinal/Abdominal: non tender, soft, no organomegaly Back Exam: normal inspection, no CVA tenderness, no vertebral tenderness Extremity: normal range of motion, non-tender, normal inspection, no pedal edema 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 Progress - Progress Progress: 10/27/19 19:21 Rechecked. Discussed lab/CT findings. Recommended follow-up with PCP in 3 to 5 days for recheck. Strict warnings given to return the emergency room for worsening confusion, unequal pupils, vomiting, worsening headache, signs of infection, or other concerns MDM: DDX: ICH, CHI, laceration, EtOH intoxication, polypharmacy 79-year-old male with longstanding history of chronic shoulder and back pain, presenting with fall this morning. According to his girlfriend, has had multiple falls recently over the last several months. No LOC today, he has a laceration to the scalp which was closed. EtOH is negative. CT head showed no acute process, labs reassuring. He was placed on hydrocodone, Xanax, and fentanyl last week. He is received multiple prescriptions for pain medicines from his primary doctor and from orthopedics. Fentanyl and Xanax were discontinued today. I advised that he not drink any alcohol while taking these types of medications. [facility] reviewed. Chapincito Velasquez DO [facility] #[id number] - Results/Orders Results/Orders: EKG reviewed by me at 1725. Sinus bradycardia, 59, right bundle branch block, normal axis, no ST segment elevations or depressions PROCEDURE: CT Head Without Intravenous Contrast CLINICAL INDICATION: The patient is 79 years years old, Male; altered mental status, fall, head injury TECHNIQUE: Axial computed tomography images of the head/brain without intravenous contrast. Sagittal and coronal reformatted images were created and reviewed. This CT exam was performed using one or more of the following dose reduction techniques: automated exposure control, adjustment of the mA and/or kV according to patient size, and/or use of iterative reconstruction technique. COMPARISON: CT head dated 08/26/2019 FINDINGS: BRAIN: No intracerebral or extracerebral mass lesions are identified. There is mild patchy hypodensity of the cerebral white matter which is nonspecific but likely secondary to chronic microvascular ischemic changes in end vessel distributions. Funk/white matter distinction is maintained. There is no evidence of intracranial hemorrhage. There is no evidence of acute territorial infarct. (It should be noted that acute infarct may not be discernible in the first [address] ) MIDLINE SHIFT: There is no shift of the midline structures. VENTRICLES: There is prominence of the ventricles, sulci, cerebellar folia, and basilar cisterns consistent with volume loss. BONES/JOINTS: There is no acute calvarial abnormality or other discernible acute osseous abnormalities. 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 VASCULATURE: There is atherosclerotic calcification in the siphons of the bilateral internal carotid arteries. SINUSES: The visualized paranasal sinuses are clear. There is a small right amira bullosa which can be seen with chronic rhinitis. MASTOID AIR CELLS: The mastoids and middle ears are clear. ORBITS: There are senescent changes in the orbits bilaterally. Optic nerve drusen noted bilaterally. DENTAL: The maxil la is edentulous. IMPRESSION: 1. No acute intracranial abnormality. (It should be noted that acute infarct may not be discernible in the first [address]) a follow-up head ct or mri is recommended if neurologic symptoms persist. 2. Volume loss. 3. Nonspecific white matter lucency, most likely deep white matter ischemic changes. Demyelination and gliosis also in the differential. 4. ASVD. 5. Remainder of findings as discussed above. Electronically signed by: Zara Vo MD 10/27/2019 6:02 PM EXAM DESCRIPTION: Chest,1 View CLINICAL HISTORY: 79 years Male altered mental status, multiple falls COMPARISON: Two-view chest dated 07/26/2014 TECHNIQUE: Portable AP view of the chest is obtained. FINDINGS IN THE CHEST: Heart: Allowing for magnification factors related to AP portable technique and body habitus, the heart is normal in size and configuration. Vasculature: [There is minimal atherosclerosis of the aortic arch.] There is no evidence of aortic aneurysm or acute findings. The pulmonary vascularity is normal. Mediastinum: Retrocardiac air and fluid-containing moderate-sized viscus again noted and consistent with a hiatal hernia. The Lungs: There is no focal consolidation in the lungs. There is minimal discoid atelectasis in the left lower lung. Pleura: There are no pleural effusions. There are no pneumothoraces. 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 Old fracture deformities of the right fourth and fifth posterolateral ribs again noted. Tubes and catheters: None Chest wall: Unremarkable. Visualized Abdomen: Unremarkable. IMPRESSION: No significant [acute] radiographic abnormalities in the chest. Moderate hiatal hernia. Remainder of findings as described above. Electronically signed by: Zara Vo MD 10/27/2019 5:57 PM - EKG/XRAY/CT CT Ordered: Yes Procedures - Laceration/Wound Repair Posterior Occipital Wound Length (cm): 4 Wound's Depth, Shape: linear Wound Explored: no foreign body removed Irrigated w/ Saline (cc's): 50 Betadine Prep?: Yes Anesthesia: Lidocaine w/ Epi Volume Anesthetic (cc's): 6 Wound Repaired With: sutures Suture Size/Type: 4:0, prolene Number of Sutures: 5 Layer Closure?: No Sterile Dressing Applied?: No Splint Applied?: No Sling Applied?: No Departure - Departure Clinical Impression: Fall at home, Occipital scalp laceration, Post concussion syndrome Disposition: Discharge to Home or Self Care Condition: Good Departure Forms: ED Discharge - Pt. Copy, Patient Portal Self Enrollment Instructions: DI for Laceration Repair, Concussion, Adult (DC) Referrals: Ambrose Hernandez MD [Primary Care Provider] - 1-5 Days Home Medications: Ambulatory Orders RX: Allopurinol [Zyloprim] 300 mg PO BID 09/27/12 RX: Omeprazole 20 mg PO BID 09/27/12 RX: Cholecalciferol [Vitamin D3] 1,000 unit PO DAILY 04/20/16 RX: Diphenhydramine HCl [Benadryl] 25 mg PO PRN PRN 04/20/16 RX: Nabumetone 750 mg PO BID 04/20/16 RX: Gabapentin 900 mg PO TID 11/27/16 RX: Metoprolol Succinate [Toprol Xl] 50 mg PO DAILY 11/27/16 RX: Lisinopril 20 mg PO DAILY 05/04/17 RX: Escitalopram Oxalate 10 mg PO DAILY 03/28/18 RX: Naproxen Sodium [Aleve] 220 mg PO DAILY 03/28/18 RX: Cyclobenzaprine HCl [Flexeril] 10 mg PO Q8H PRN #30 tab 03/31/18 RX: HYDROcodone 10MG/APAP 325MG [Volga 10/325] 1 ea PO Q4H PRN tab 03/31/18 predniSONE [Prednisone] 20 mg PO DAILY #5 tab 10/19/19 HYDROcodone 7.5MG/APAP 325MG [Volga 7.5/325] 1 ea PO PRN 10/27/19 Additional Instructions: Wash laceration with soap and water twice a day. Keep the wound clean, dry, covered. Sutures need to be removed in 7 to 10 days. Return to the emergency room or follow-up with her PCP for suture removal. Return to the emergency room immediately for worsening headache, increased confusion, vomiting, numbness/tingling/weakness, spreading redness, pus draining from wound, or any other concerns
[2019-10-27 19:06] VITALS: BP 114/75
[2019-10-27 19:21] VITALS: O2SAT 94
== END 2019-10-27 19:17 | disposition home or self-care (01) ==
LOC: ER 16:59
DX: S01.01XA Laceration without foreign body of scalp, initial encounter (principal); I10 Essential (primary) hypertension; J45.909 Unspecified asthma, uncomplicated; Z91.81 History of falling; I45.10 Unspecified right bundle-branch block; F07.81 Postconcussional syndrome; W01.0XXA Fall on same level from slipping, tripping and stumbling without subsequent striking against object, initial encounter; Y92.9 Unspecified place or not applicable; Y93.E1 Activity, personal bathing and showering

== ENCOUNTER 2019-10-31 10:28 | Emergency (ER) | payer OTHER ==
[2019-10-31] MEDS ORDERED: SODIUM CHLORIDE 0.9% 1000ML 1,000 ML IVS ONE (11:31)
--- NOTE | 2019-10-31 11:54 | RAD ---
EXAM DESCRIPTION: Pelvis CLINICAL HISTORY: fall COMPARISON: October 02, 2019 IMPRESSION: Single AP supine view of the pelvis shows mild osteopenia the osseous structures. No acute fracture or joint dislocation. Moderate osteoarthritic changes are seen in the hips bilaterally. Moderate to severe spondylitic changes of the spine are seen. Mild degenerative changes of the sacroiliac joints. Electronically signed by: Finn Luna MD 10/31/2019 11:52 AM CDT
--- NOTE | 2019-10-31 11:55 | RAD ---
EXAM DESCRIPTION: Chest,1 View CLINICAL HISTORY: recurrent falls COMPARISON: October 27, 2019 IMPRESSION: Single AP portable upright view of the chest shows cardiac silhouette and pulmonary vasculature to be within normal limits. Lungs are normally aerated and clear. Large retrocardiac hiatal hernia is again seen. No obvious pleural effusion or pneumothorax is seen. Right shoulder arthroplasty changes are again seen. Remote appearing left-sided rib fractures are identified. Electronically signed by: Finn Luna MD 10/31/2019 11:53 AM CDT
--- NOTE | 2019-10-31 11:57 | RAD ---
EXAM DESCRIPTION: Shoulder,Right 2 or More Views CLINICAL HISTORY: pain COMPARISON: July 17, 2019 IMPRESSION: 2 views of the right shoulder show postsurgical changes from a burst shoulder arthroplasty. No hardware failure or loosening. No acute fracture or dislocation. Moderate osteoarthritic changes of the right acromioclavicular joint are seen. Remote appearing fractures of the right ribs are again seen. Osseous structures are diffusely osteopenic. Electronically signed by: Finn Luna MD 10/31/2019 11:56 AM CDT
--- NOTE | 2019-10-31 12:03 | CT ---
EXAM DESCRIPTION: Cervical Spine CLINICAL HISTORY: fall COMPARISON: August 26, 2019 TECHNIQUE: Axial noncontast CT of the cervical spine with coronal and sagittal reformats. This exam was performed according to our departmental dose-optimization program, which includes automated exposure control, adjustment of the mA and/or kV according to patient size and/or use of iterative reconstruction technique. 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 There is extensive callus surrounding the C2 vertebral level similar to previous. Degenerative changes at the atlantoaxial articulation. The lateral masses of C1 are posteriorly positioned relative to the articular surfaces of C2 by 2 to 3 mm similar to previous exam. Multilevel cervical spondylosis and discogenic degenerative changes are similar to previous exam. There is minimal anterolisthesis of C3 on C4 and C5 on C6 similar to previous exam. Moderate right greater than left facet hypertrophic and degenerative changes throughout the cervical spine. 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 Interbody fusion from C7 through T3 is seen. Visualized skull base is unremarkable. Soft tissue thickening and calcifications posterior to the odontoid again contributes to mild spinal canal stenosis. No acute appearing fracture or posttraumatic positional abnormality of the cervical spine is seen. Carotid artery calcifications are stable. 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 No CT evidence of acute fracture or posttraumatic positional abnormality of the cervical spine. Moderate to severe spondylitic changes of the cervical spine are seen. Electronically signed by: Finn Luna MD 10/31/2019 12:02 PM CDT
--- NOTE | 2019-10-31 12:05 | CT ---
EXAM DESCRIPTION: Head CLINICAL HISTORY: fall COMPARISON: October 27, 2019 TECHNIQUE: Noncontrast transaxial CT images of the head are obtained from base to vertex. This exam was performed according to our departmental dose-optimization program, which includes automated exposure control, adjustment of the mA and/or kV according to patient size and/or use of iterative reconstruction technique. FINDINGS: The midline structures are not displaced. Sulci are age-appropriate. There are areas of decreased attenuation in the periventricular white matter and the white matter of the centrum semiovale. There is no evidence of mass, mass-effect, hydrocephalus, or acute intracranial hemorrhage. No abnormal extra axial fluid collection is seen. Bone windows show no evidence of depressed skull fracture. Mild right frontal scalp soft tissue swelling. Moderate calcifications of the intracranial carotid arteries. The visualized paranasal sinuses are unremarkable. IMPRESSION: 1. Age-appropriate atrophy with evidence of old small vessel ischemic type changes seen. 2. Mild right frontal scalp soft tissue swelling could be related to recent trauma.. Electronically signed by: Finn Luna MD 10/31/2019 12:04 PM CDT
--- NOTE | 2019-10-31 12:06 | RAD ---
EXAM DESCRIPTION: Hip,Right 2 Views CLINICAL HISTORY: fall COMPARISON: None. IMPRESSION: 2 views of the right hip show diffuse osteopenia the osseous structures. No acute fracture, focal bone destruction, or joint dislocation is seen. Mild/moderate joint space narrowing with sclerotic changes to the superior lateral acetabulum are seen compatible with moderate osteoarthritic changes of the hip. Mild to moderate degenerative changes of the sacroiliac joints are seen left greater than right. Electronically signed by: Finn Luna MD 10/31/2019 12:04 PM CDT
--- NOTE | 2019-10-31 12:52 | ED.PDOC ---
History of Present Illness - General Chief Complaint: Blood Pressure Problem Stated Complaint: low BP Time Seen by Provider: 10/31/19 10:33 Source: patient Exam Limitations: no limitations - History of Present Illness Initial Comments: The patient is an 79-year-old male presented emergency room secondary to multiple falls in the last couple of weeks. Patient has had his pain medications backed up secondary to his chronic back pain. He had a fall yesterday and is having some right hip pain and he hit his forehead and right orbit on the ground when he fell yesterday as well. He does have a mild periorbital hematoma. No loss of consciousness. He was sent here today secondary to home health finding that he had a low blood pressure. The patient is supine his blood pressures are low normal but when he stands they do drop precipitously. No altered mental status. He is moving all extremities well. Extraocular movements are intact and no acute vision changes. No altered mental status. In total, the patient has 7 medications that can lower his blood pressure. Timing/Duration: 24 hours Severity: moderate Improving Factors: nothing Worsening Factors: nothing Associated Symptoms: malaise Allergies/Adverse Reactions: Allergies Cephalosporins Allergy (Severe, Verified 10/31/19 10:41) Rash Penicillins Allergy (Severe, Verified 10/31/19 10:41) Rash Codeine Allergy (Intermediate, Verified 10/31/19 10:41) Other Itching Lactose Allergy (Verified 10/31/19 10:41) Morphine Allergy (Verified 10/31/19 10:41) Tetanus Toxoid Allergy (Verified 10/31/19 10:46) Tramadol Adverse Reaction (Verified 10/31/19 10:41) Other states made him have nightmares Home Medications: Ambulatory Orders Allopurinol [Zyloprim] 300 mg PO DAILY 09/27/12 Omeprazole 20 mg PO BID 09/27/12 Cholecalciferol [Vitamin D3] 1,000 unit PO DAILY 04/20/16 Gabapentin 600 mg PO BID 11/27/16 Metoprolol Succinate [Toprol Xl] 25 mg PO DAILY 11/27/16 Lisinopril 20 mg PO DAILY 05/04/17 Escitalopram Oxalate 10 mg PO DAILY 03/28/18 HYDROcodone 7.5MG/APAP 325MG [[place] 7.5/325] 1 ea PO PRN PRN 10/27/19 Cyclobenzaprine HCl [Flexeril] 5 mg PO BID 10/31/19 Gabapentin 900 mg PO BEDTIME 10/31/19 Meloxicam 15 mg PO DAILY 10/31/19 Nabumetone [Relafen] 750 mg PO DAILY 10/31/19 predniSONE [Prednisone] 10 mg PO DAILY 10/31/19 Review of Systems - Review of Systems Constitutional: States: malaise EENTM: States: no symptoms reported Respiratory: States: no symptoms reported Cardiology: States: no symptoms reported Gastrointestinal/Abdominal: States: no symptoms reported Genitourinary: States: no symptoms reported Musculoskeletal: States: see HPI Skin: States: no symptoms reported Neurological: States: see HPI Endocrine: States: no symptoms reported All other Systems: No Change from Baseline Past Medical History (General) - Patient Medical History Hx Seizures: No Hx Stroke: No Hx Dementia: No Hx Asthma: Yes Hx of COPD: No Hx Cardiac Disorders: No Hx Congestive Heart Failure: No Hx Pacemaker: No Hx Hypertension: Yes Hx Thyroid Disease: No Hx Diabetes: No Hx Gastroesophageal Reflux: Yes Hx Renal Disease: No Hx Cancer: Yes - Skin (malignant melanoma) Hx of HIV: No Hx Hepatitis C: No Hx MRSA: No Surgical History: appendectomy - Vaccination History Hx Tetanus, Diphtheria Vaccination: Yes Hx Influenza Vaccination: Yes Hx Pneumococcal Vaccination: Yes - Social History Hx Tobacco Use: Yes Hx Alcohol Use: Yes Hx Substance Use: No Hx Substance Use Treatment: No Hx Depression: No Hx Physical Abuse: No Hx Emotional Abuse: No - Female History Patient : No Family Medical History - Family History Mother Family History: Unknown Living Status: Hx Family Asthma: No Hx Family Congestive Heart Failure: No Hx Family Hypertension: Yes Hx Family Stroke: No Hx Cardiac Disease: No Hx Family Diabetes: No Hx Family Cancer: Yes - breast,esophagus Physical Exam - Physical Exam General Appearance: Alert, Comfortable, No apparent distress Eye Exam: bilateral normal - Right periorbital hematoma. Ears, Nose, Throat: hearing grossly normal - Chronic decreased hearing bilaterally, normal pharynx Neck: full range of motion, supple Respiratory: lungs clear, normal breath sounds, no respiratory distress, no accessory muscle use Cardiovascular/Chest: normal peripheral pulses, regular rate, rhythm, no edema Peripheral Pulses: radial,right: 2+, radial,left: 2+ Gastrointestinal/Abdominal: non tender, soft Rectal Exam: deferred Back Exam: no CVA tenderness, no vertebral tenderness Extremity: normal range of motion, non-tender, normal inspection, no pedal edema, normal capillary refill, other - Mild right hip discomfort to palpation. Normal passive and active range of motion. Mild right shoulder soreness but normal range of motion given chronic limitations. 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, alert, normal mood/affect, oriented x 3 Skin Exam: other - Bruising to the periorbital area Comments: Vital Signs - 24 hr 10/31/19 10/31/19 10/31/19 10:40 11:06 11:07 Temperature 97.8 F Pulse Rate [ 74 68 72 Left Brachial] Respiratory 16 Rate Blood Pressure 116/59 105/52 80/40 [Left Arm] O2 Sat by Pulse 95 Oximetry 10/31/19 10/31/19 10/31/19 11:08 11:44 12:11 Temperature Pulse Rate [ 70 62 61 Left Brachial] Respiratory 20 16 16 Rate Blood Pressure 91/52 119/68 123/66 [Left Arm] O2 Sat by Pulse 97 97 Oximetry Laboratory Tests 10/31/19 10/31/19 10/31/19 10:55 10:55 10:55 WBC 5.2 RBC 3.62 L Hgb 10.0 L Hct 30.4 L MCV 84.0 MCH 27.6 MCHC 32.8 L RDW 17.4 H Plt Count 202 MPV 7.6 Absolute Neuts (auto) 3.50 Absolute Lymphs (auto) 0.80 L Absolute Monos (auto) 0.70 Absolute Eos (auto) 0.20 Absolute Basos (auto) 0.00 Neutrophils % 66.4 Lymphocytes % 16.2 L Monocytes % 13.5 H Eosinophils % 3.0 Basophils % 0.9 Sodium 132 L Potassium 4.4 Chloride 99 L Carbon Dioxide 24 Anion Gap 13.4 BUN 28 H Creatinine 2.17 H BUN/Creatinine Ratio 12.9 Random Glucose 93 Serum Osmolality 269.7 L Calcium 9.1 Magnesium 1.7 L Total Bilirubin 0.9 AST 19 ALT 15 Alkaline Phosphatase 67 Creatine Kinase 61 CK-MB (CK-2) 3.0 CK-MB (CK-2) % Not Reportable Troponin I < 0.02 B-Natriuretic Peptide 132.0 H Serum Total Protein 6.3 L Albumin 3.4 Globulin 2.9 Albumin/Globulin Ratio 1.2 TSH 1.62 Urine Color Urine Appearance Urine pH Ur Specific Magna Urine Protein Urine Glucose (UA) Urine Ketones Urine Blood Urine Nitrite Urine Bilirubin Urine Urobilinogen Ur Leukocyte Esterase Urine RBC Urine WBC Ur Epithelial Cells Urine Bacteria 10/31/19 11:40 WBC RBC Hgb Hct MCV MCH MCHC RDW Plt Count MPV Absolute Neuts (auto) Absolute Lymphs (auto) Absolute Monos (auto) Absolute Eos (auto) Absolute Basos (auto) Neutrophils % Lymphocytes % Monocytes % Eosinophils % Basophils % Sodium Potassium Chloride Carbon Dioxide Anion Gap BUN Creatinine BUN/Creatinine Ratio Random Glucose Serum Osmolality Calcium Magnesium Total Bilirubin AST ALT Alkaline Phosphatase Creatine Kinase CK-MB (CK-2) CK-MB (CK-2) % Troponin I B-Natriuretic Peptide Serum Total Protein Albumin Globulin Albumin/Globulin Ratio TSH Urine Color Yellow Urine Appearance Clear Urine pH 6.0 Ur Specific Magna <= 1.005 Urine Protein Negative Urine Glucose (UA) Negative Urine Ketones Negative Urine Blood Negative Urine Nitrite Negative Urine Bilirubin Negative Urine Urobilinogen 0.2 Ur Leukocyte Esterase Negative Urine RBC 0 Urine WBC 0 Ur Epithelial Cells 0 Urine Bacteria 0 EKG patient presents normal sinus rhythm at 68 bpm. Normal axis. Right bundle branch block. No acute ST segment or T wave changes indicative of acute ischemia. Right shoulder x-ray shows chronic DJD. No dislocation or fracture. Chest x-ray shows old rib fractures that are healing as well as a hiatal hernia. X-ray of the pelvis show significant DJD. X-ray of the right hip show significant DJD and osteopenia. CT scan of the head without contrast shows the right frontal scalp hematoma but no other obvious acute pathology. CT scan of the cervical spine without contrast shows a chronic dens fracture as opposed chronic degenerative changes. No acute pathology. Progress - Progress Progress: 10/31/19 12:54 The patient is an 79-year-old male presented to emergency room secondary to recurrent falls. This is most likely due to hypotension due to the polypharmacy. Given the patient's need for additional pain control currently, I am going to have the patient hold his lisinopril and metoprolol for the next 3 to 4 days. they do need to keep a blood pressure log. I do want him to follow- up with primary care doctor around Wednesday for repeat evaluation. He obviously needs to ambulate carefully to prevent further falls. He does have some mild acute renal insufficiency that will need to be followed. He did receive a liter of IV fluids here. ER warnings are given for any worsening. marilyn avelar [id number] Departure - Departure Clinical Impression: Orthostatic hypotension, Polypharmacy, Acute renal insufficiency, Unstable gait Fall at home Qualifiers: Encounter type: initial encounter Qualified Code(s): W19.XXXA - Unspecified fall, initial encounter; Y92.009 - Unspecified place in unspecified non- institutional (private) residence as the place of occurrence of the external cause Contusion of face Qualifiers: Encounter type: initial encounter Qualified Code(s): S00.83XA - Contusion of other part of head, initial encounter Disposition: Discharge to Home or Self Care Condition: Fair Departure Forms: ED Discharge - Pt. Copy, Patient Portal Self Enrollment Instructions: Orthostatic Hypotension (DC) Diet: regular diet Activity: increase activity as tolerated Referrals: Ambrose Hernandez MD [Primary Care Provider] - 1-2 Weeks Home Medications: Ambulatory Orders Allopurinol [Zyloprim] 300 mg PO DAILY 09/27/12 Omeprazole 20 mg PO BID 09/27/12 Cholecalciferol [Vitamin D3] 1,000 unit PO DAILY 04/20/16 Gabapentin 600 mg PO BID 11/27/16 Metoprolol Succinate [Toprol Xl] 25 mg PO DAILY 11/27/16 Lisinopril 20 mg PO DAILY 05/04/17 Escitalopram Oxalate 10 mg PO DAILY 03/28/18 HYDROcodone 7.5MG/APAP 325MG [[place] 7.5/325] 1 ea PO PRN PRN 10/27/19 Cyclobenzaprine HCl [Flexeril] 5 mg PO BID 10/31/19 Gabapentin 900 mg PO BEDTIME 10/31/19 Meloxicam 15 mg PO DAILY 10/31/19 Nabumetone [Relafen] 750 mg PO DAILY 10/31/19 predniSONE [Prednisone] 10 mg PO DAILY 10/31/19 Additional Instructions: The patient is an 79-year-old male presented to emergency room secondary to recurrent falls. This is most likely due to hypotension due to the polypharmacy. Given the patient's need for additional pain control currently, I am going to have the patient hold his lisinopril and metoprolol for the next 3 to 4 days. they do need to keep a blood pressure log. I do want him to follow-up with primary care doctor around Wednesday for repeat evaluation. He obviously needs to ambulate carefully to prevent further falls. He does have some mild acute renal insufficiency that will need to be followed. He did receive a liter of IV fluids here. ER warnings are given for any worsening.
[2019-10-31 13:11] VITALS: BP 133/76; TEMP 97.2; O2SAT 95
== END 2019-10-31 13:11 | disposition home or self-care (01) ==
LOC: ER 10:28
DX: I95.1 Orthostatic hypotension (principal); S00.83XA Contusion of other part of head, initial encounter; R53.81 Other malaise; I10 Essential (primary) hypertension; N28.9 Disorder of kidney and ureter, unspecified; F17.200 Nicotine dependence, unspecified, uncomplicated; M25.551 Pain in right hip; R26.9 Unspecified abnormalities of gait and mobility; W19.XXXA Unspecified fall, initial encounter; Y92.9 Unspecified place or not applicable

== ENCOUNTER 2019-11-16 05:34 | Day surgery (SDC) | payer OTHER ==
[2019-11-16] MEDS ORDERED: BUPIVACAINE 0.25% INJ 30 ML VIAL INJ ONE (06:20)
[2019-11-16] MEDS: BUPIVACAINE 0.25% INJ 30 ML VIAL INJ ONE (06:57)
[2019-11-16] MEDS: DEXAMETHASONE INJ 10 MG/ML VIAL IV ONE (07:22)
--- NOTE | 2019-11-16 07:31 | PCM.PROG ---
Progress Note Subjective: Patient brought to OR after H&P, and informed consent. Patient placed in the prone position on the OR table. Area prepped and draped in usual sterile fashion. Time out was performed. Flouroscopy was used to identify the L5-S1 intersspace. Patient was in extreme pain due to positioning and unable to lay prone or lateral, so patient was repositioned to sitting. Area was re-prepped and draped. Identified location was used to access L5-S1 space. Lidocaine 1% was injected at skin. 17g Tuohy then advanced using loss of resistance technique. Bupivicaine 0.25% PF 2ml, NS PF 2ml, and decadron PF 8mg slowly injected. Patient reported pressure/pain radiating at his usual area of most severe pain as medication was slowly injected. At the conclusion of the procedure, a sterile dressing was applied and patient was returned to [facility] in good condition. [facility] T[facility] Lot #[id number] 2020-10-22
[2019-11-16 11:06] VITALS: BP 167/94; TEMP 96.6; O2SAT 96
== END 2019-11-16 08:05 | disposition home or self-care (01) ==
LOC: AMB 05:34
PROVIDERS: ATTEND Anesthesiology
DX: M54.16 Radiculopathy, lumbar region (principal); I10 Essential (primary) hypertension; F32.9 Major depressive disorder, single episode, unspecified; F03.90 Unspecified dementia, unspecified severity, without behavioral disturbance, psychotic disturbance, mood disturbance, and anxiety; Z88.5 Allergy status to narcotic agent; Z88.0 Allergy status to penicillin; Z88.7 Allergy status to serum and vaccine; Z91.011 Allergy to milk products; Z87.891 Personal history of nicotine dependence; Z79.899 Other long term (current) drug therapy
CPT/HCPCS: 62323; J1100

== ENCOUNTER 2019-11-28 14:13 | Emergency (ER) | payer OTHER ==
[2019-11-28] MEDS ORDERED: SODIUM CHLORIDE 0.9% 1000ML 1,000 ML IVS ONE (15:28)
--- NOTE | 2019-11-28 15:50 | CT ---
EXAM DESCRIPTION: CT head without contrast CLINICAL HISTORY: possible seizure COMPARISON: Previous CT head October 31, 2019, previous CT cervical spine September 20, 2018 TECHNIQUE: Noncontrast head CT was performed with routine protocol. FINDINGS: Normal wise-white matter differentiation. Ventricles and sulci are prominent consistent with age-related cerebral volume loss. Low density areas in the white matter consistent with chronic microvascular ischemic disease. Chronic C2 fracture is noted with nonunion. This was seen on previous CT of the neck September 20, 2018. No significant change in alignment is evident. No high density hemorrhage, focal edema or shift of the midline. No sulcal effacement. Normal orbital contents. Basilar cisterns appear clear. Intact calvarium with no fracture or lytic lesion. Normal aeration of tympanic cavities and mastoid air cells. No fluid levels in the paranasal sinuses. Nodular mucosal thickening in the left maxillary sinus with right inferior maxillary sinus mucous retention cyst 1.4 cm. Skull base appears intact. Symmetrical internal auditory canals. Coronal and sagittal reformatted images confirm the findings. IMPRESSION: No acute intracranial pathologic process. Chronic cervical C2 fracture with nonunion. This exam was performed according to our departmental dose-optimization program, which includes automated exposure control, adjustment of the mA and/or kV according to patient size and/or use of iterative reconstruction technique. Total DLP equals 967.47 mGycm. Electronically signed by: Zechariah Garza MD 11/28/2019 3:48 PM CDT
--- NOTE | 2019-11-28 17:47 | ED.PDOC ---
History of Present Illness - General Chief Complaint: Neuro Symptoms/Deficits Stated Complaint: possible seizure Time Seen by Provider: 11/28/19 16:39 Source: patient, family Exam Limitations: no limitations - History of Present Illness Initial Comments: PT BECAME LIGHT HEADED TODAY WHEN HE STOOD UP AND ALMOST LOST CONSCIOUSNESS BUT DID NOT QUITE FAINT (PRE-SYNCOPAL). THE HOME HEALTH NURSE NOTICED HE MOMENTARLY HAD A "GLASSED LOOK" OVER HIS FACE. HE DID NOT FALL TODAY. HE HAS BEEN TO ER A LOT RECENTLY FOR FALLS FROM HYPOTENSION. PCP CHANGED HIS MEDS AND HAS NOT HAD ANY FALLS SINCE. PT'S FRIEND WITH HIM WAS WORRIED ABOUT STROKE. HIS SX RESOLVED AFTER THE EPISODE AND HE IS SX-FREE IN ER AND BACK TO [facility]. Severity: moderate Improving Factors: rest Worsening Factors: nothing Associated Symptoms: denies symptoms Allergies/Adverse Reactions: Allergies Cephalosporins Allergy (Severe, Verified 10/31/19 10:41) Rash Penicillins Allergy (Severe, Verified 10/31/19 10:41) Rash Codeine Allergy (Intermediate, Verified 10/31/19 10:41) Other Itching Lactose Allergy (Verified 10/31/19 10:41) Morphine Allergy (Verified 10/31/19 10:41) Tetanus Toxoid Allergy (Verified 10/31/19 10:46) Tramadol Adverse Reaction (Verified 10/31/19 10:41) Other states made him have nightmares Home Medications: Ambulatory Orders Allopurinol [Zyloprim] 300 mg PO DAILY 09/27/12 Omeprazole 20 mg PO BID 09/27/12 Cholecalciferol [Vitamin D3] 1,000 unit PO DAILY 04/20/16 Gabapentin 600 mg PO BID 11/27/16 Lisinopril 10 mg PO BEDTIME 05/04/17 Escitalopram Oxalate 10 mg PO DAILY 03/28/18 HYDROcodone 7.5MG/APAP 325MG [[place] 7.5/325] 1 ea PO PRN PRN 10/27/19 Cyclobenzaprine HCl [Flexeril] 5 mg PO PRN PRN 10/31/19 Gabapentin 900 mg PO BEDTIME 10/31/19 Meloxicam 15 mg PO DAILY 10/31/19 Cyanocobalamin [B12] 1,000 mcg PO DAILY 11/16/19 Multiple Vitamin [Chlorocaps] 1 cap PO DAILY 11/16/19 Simvastatin [Zocor] 20 mg PO DAILY 11/16/19 Thiamine HCl [Vitamin B-1] 250 mg PO DAILY 11/16/19 Prednisone 10 mg PO DAILY 11/28/19 Review of Systems - Review of Systems Constitutional: Denies: chills, fever EENTM: Denies: eye pain, blurred vision, ear pain Respiratory: Denies: cough, short of breath Cardiology: Denies: chest pain, palpitations Gastrointestinal/Abdominal: Denies: abdominal pain, nausea Genitourinary: Denies: dysuria, pain Musculoskeletal: Denies: back pain, neck pain Skin: Denies: lesions, rash Neurological: Denies: headache, numbness, paresthesia, tremors, weakness Endocrine: Denies: excessive sweating, flushing Hematologic/Lymphatic: Denies: easy bleeding, easy bruising All other Systems: Reviewed and Negative Past Medical History (General) - Patient Medical History Hx Seizures: No Hx Stroke: No Hx Dementia: No Hx Asthma: Yes Hx of COPD: No Hx Cardiac Disorders: No Hx Congestive Heart Failure: No Hx Pacemaker: No Hx Hypertension: Yes Hx Thyroid Disease: No Hx Diabetes: No Hx Gastroesophageal Reflux: Yes Hx Renal Disease: No Hx Cancer: Yes - Skin (malignant melanoma) Hx of HIV: No Hx Hepatitis C: No Hx MRSA: No - Vaccination History Hx Tetanus, Diphtheria Vaccination: Yes Hx Influenza Vaccination: Yes Hx Pneumococcal Vaccination: Yes - Social History Hx Tobacco Use: Yes Hx Alcohol Use: Yes Hx Substance Use: No Hx Substance Use Treatment: No Hx Depression: No Hx Physical Abuse: No Hx Emotional Abuse: No - Female History Patient : No Family Medical History - Family History Mother Family History: Unknown Living Status: Hx Family Asthma: No Hx Family Congestive Heart Failure: No Hx Family Hypertension: Yes Hx Family Stroke: No Hx Cardiac Disease: No Hx Family Diabetes: No Hx Family Cancer: Yes - breast,esophagus Physical Exam - Physical Exam General Appearance: Alert, No apparent distress Eye Exam: bilateral normal ENT Exam: normal ENT inspection, TMs normal, pharynx normal Neck: non-tender, full range of motion, supple Respiratory: lungs clear, normal breath sounds, no respiratory distress, no accessory muscle use Cardiovascular/Chest: normal peripheral pulses, regular rate, rhythm, no murmur Peripheral Pulses: radial,right: 2+, radial,left: 2+ Gastrointestinal/Abdominal: normal bowel sounds, non tender, soft Back Exam: normal inspection, no vertebral tenderness Extremities Exam: non-tender, normal range of motion 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 NO POSTICTAL STATE. Skin Exam: normal color, warm/dry Progress - Results/Orders Results/Orders: PRE-SYNCOPE - D/T ORTHO HOTN D/T VASOVAGAL SYNCOPE D/T THE BELOW. POS ORTHOSTATIC HOTN (31 mm Hg DROP IN SBP). ANEMIA - HGB 9.4, WAS 12.7 IN JUN 2019. MICROCYTIC, NORMOCHROMIC. UNCLEAR ETX, OF COURSE CONCERN FOR MALIGNANCY GIVEN HIS AGE. ORDERING IRON STUDIES. PT AND FRIEND WANT TO LEAVE AFTER BLOOD DRAW AND F/U RESULTS W/ PCP. HYPONATREMIA AND LOW NL BP FOR HIS AGE (SBP 120) - GAVE 1L NS BOLUS. BP 145/70 AFTER BOLUS. THE ONLY MED ON HIS LIST I SEE THAT CAN LEND TOWARD HYPONATREMIA IS ESCITALOPRAM. CRF WITH CR OR 1.53 ([facility] SINCE 2016). SAFE FOR DC TO HOME BUT NEEDS CLOSE F/U W/ PCP TO DETERMINE ETX. - EKG/XRAY/CT EKG: Sinus, RBBB, no ST T wave changes Departure - Departure Clinical Impression: Microcytic normochromic anemia, Hyponatremia with decreased serum osmolality, Orthostatic hypotension, Near syncope Chronic renal failure Qualifiers: Chronic kidney disease stage: unspecified stage Qualified Code(s): N18.9 - Chronic kidney disease, unspecified Disposition: Discharge to Home or Self Care Condition: Fair Departure Forms: ED Discharge - Pt. Copy, Patient Portal Self Enrollment Instructions: Orthostatic Hypotension (DC) Diet: resume usual diet Activity: increase activity as tolerated Referrals: Ambrose Hernandez MD [Primary Care Provider] - 1-2 Weeks Home Medications: Ambulatory Orders Allopurinol [Zyloprim] 300 mg PO DAILY 09/27/12 Omeprazole 20 mg PO BID 09/27/12 Cholecalciferol [Vitamin D3] 1,000 unit PO DAILY 04/20/16 Gabapentin 600 mg PO BID 11/27/16 Lisinopril 10 mg PO BEDTIME 05/04/17 Escitalopram Oxalate 10 mg PO DAILY 03/28/18 HYDROcodone 7.5MG/APAP 325MG [[place] 7.5/325] 1 ea PO PRN PRN 10/27/19 Cyclobenzaprine HCl [Flexeril] 5 mg PO PRN PRN 10/31/19 Gabapentin 900 mg PO BEDTIME 10/31/19 Meloxicam 15 mg PO DAILY 10/31/19 Cyanocobalamin [B12] 1,000 mcg PO DAILY 11/16/19 Multiple Vitamin [Chlorocaps] 1 cap PO DAILY 11/16/19 Simvastatin [Zocor] 20 mg PO DAILY 11/16/19 Thiamine HCl [Vitamin B-1] 250 mg PO DAILY 11/16/19 Prednisone 10 mg PO DAILY 11/28/19 Additional Instructions: Your head CT did not show any bleeding. You have anemia (low hemoglobin), which has worsened over the past 5 months, low sodium (hyponatremia), and a drop in blood pressure when you stand up (orthostatic hypotension). All of these can contribute to your light-headed episode today. It is important to see your regular doctor to investigate what is causing these.
[2019-11-28 18:13] VITALS: BP 165/102; TEMP 96.9; O2SAT 97
== END 2019-11-28 18:13 | disposition home or self-care (01) ==
LOC: ER 14:13
DX: I95.1 Orthostatic hypotension (principal); I12.9 Hypertensive chronic kidney disease with stage 1 through stage 4 chronic kidney disease, or unspecified chronic kidney disease; N18.9 Chronic kidney disease, unspecified; R55 Syncope and collapse; E87.1 Hypo-osmolality and hyponatremia; D50.9 Iron deficiency anemia, unspecified; Z79.899 Other long term (current) drug therapy; F17.200 Nicotine dependence, unspecified, uncomplicated
CPT/HCPCS: 70450; 80053; 81001; 82728; 83540; 83550; 85025; 93005; J7030

== ENCOUNTER → 2019-12-05 | Outpatient (CLI) | payer OTHER | LOC: BFHH 15:24 | PROVIDERS: ATTEND Family Medicine | DX: M47.26 Other spondylosis with radiculopathy, lumbar region (principal); N40.0 Benign prostatic hyperplasia without lower urinary tract symptoms; Z91.81 History of falling ==

== ENCOUNTER 2019-12-12 19:00 | Emergency (ER) | payer OTHER ==
[2019-12-12] MEDS ORDERED: SODIUM CHLORIDE 0.9% (FLUSH) 10 ML SYG IV PRN (19:31)
[2019-12-12] MEDS ORDERED: SODIUM CHLORIDE 0.9% 1000ML 1,000 ML IVS ONE (19:34)
--- NOTE | 2019-12-12 21:18 | RAD ---
EXAM DESCRIPTION: Chest x-ray,1 View CLINICAL HISTORY: syncope COMPARISON: None FINDINGS: Cardiac silhouette is within normal limits. There is no focal parenchymal or pleural disease. There is no acute osseous process visualized. There are old right rib fractures. There is a hiatal hernia. IMPRESSION: No evidence of acute cardiopulmonary disease. Electronically signed by: Nehemiah Sol MD 12/12/2019 9:16 PM CDT
[2019-12-12 21:26] VITALS: O2SAT 93
--- NOTE | 2019-12-12 22:30 | ED.PDOC ---
History of Present Illness - General Time Seen by Provider: 12/12/19 19:31 Source: patient, RN notes reviewed, Vital Signs reviewed, family Exam Limitations: no limitations - History of Present Illness Initial Comments: Patient is an 79-year-old white male who presents with complaints of syncope. Patient denies any chest pain or shortness of breath. Timing/Duration: 1 hour Severity: severe Improving Factors: nothing Worsening Factors: nothing Associated Symptoms: denies symptoms Allergies/Adverse Reactions: Allergies Cephalosporins Allergy (Severe, Verified 10/31/19 10:41) Rash Penicillins Allergy (Severe, Verified 10/31/19 10:41) Rash Codeine Allergy (Intermediate, Verified 10/31/19 10:41) Other Itching Lactose Allergy (Verified 10/31/19 10:41) Morphine Allergy (Verified 10/31/19 10:41) Tetanus Toxoid Allergy (Verified 10/31/19 10:46) Tramadol Adverse Reaction (Verified 10/31/19 10:41) Other states made him have nightmares Home Medications: Ambulatory Orders Allopurinol [Zyloprim] 300 mg PO DAILY 09/27/12 Omeprazole 20 mg PO BID 09/27/12 Cholecalciferol [Vitamin D3] 1,000 unit PO DAILY 04/20/16 Gabapentin 600 mg PO BID 11/27/16 Cyclobenzaprine HCl [Flexeril] 5 mg PO PRN PRN 10/31/19 Gabapentin 900 mg PO BEDTIME 10/31/19 Cyanocobalamin [B12] 1,000 mcg PO DAILY 11/16/19 Multiple Vitamin [Chlorocaps] 1 cap PO DAILY 11/16/19 Simvastatin [Zocor] 20 mg PO DAILY 11/16/19 Thiamine HCl [Vitamin B-1] 250 mg PO DAILY 11/16/19 Prednisone 10 mg PO DAILY 11/28/19 Allopurinol [Zyloprim] 100 mg PO 12/12/19 Lisinopril 12/12/19 Lisinopril 20 mg PO 12/12/19 Pentazocine W/ Naloxone [Pentazocine/Naloxone HCl 50-0.5 mg] 1 tab PO 12/12/19 Review of Systems - Review of Systems Constitutional: States: see HPI, weakness. Denies: chills, fever, malaise EENTM: States: no symptoms reported. Denies: eye pain, blurred vision, double vision Respiratory: States: no symptoms reported. Denies: cough, short of breath, stridor Cardiology: States: see HPI, syncope. Denies: chest pain, edema, palpitations Gastrointestinal/Abdominal: States: no symptoms reported. Denies: abdominal pain, diarrhea, nausea, vomiting Genitourinary: States: no symptoms reported Musculoskeletal: States: back pain - Patient with chronic back pain. Denies: neck pain Skin: States: no symptoms reported. Denies: change in color, rash Neurological: States: see HPI, weakness - Generalized fatigue. Denies: headache, numbness, paresthesia Endocrine: States: no symptoms reported Hematologic/Lymphatic: States: no symptoms reported All other Systems: No Change from Baseline Past Medical History (General) - Patient Medical History Hx Seizures: No Hx Stroke: No Hx Dementia: No Hx Asthma: No Hx of COPD: No Hx Cardiac Disorders: No Hx Congestive Heart Failure: No Hx Pacemaker: No Hx Hypertension: Yes Hx Thyroid Disease: No Hx Diabetes: No Hx Gastroesophageal Reflux: Yes Hx Renal Disease: No Hx Cancer: No Hx of HIV: No Hx Hepatitis C: No Hx MRSA: No Surgical History: tonsillectomy, other - Vaccination History Hx Tetanus, Diphtheria Vaccination: No Hx Influenza Vaccination: No Hx Pneumococcal Vaccination: No Immunizations Up to Date: No - Social History Hx Tobacco Use: No Hx Chewing Tobacco Use: No Hx Alcohol Use: No Hx Substance Use: No Hx Substance Use Treatment: No Hx Depression: No Feels Threatened In Home Enviroment: No Feels Threatened In a Relationship: No Hx Physical Abuse: No Hx Emotional Abuse: No Hx Suspected Abuse: No - Female History Patient is a Female of Child Bearing Age (10 -59 yrs old): No Patient : No Family Medical History - Family History Mother Family History: Unknown Living Status: Hx Family Asthma: No Hx Family Congestive Heart Failure: No Hx Family Hypertension: Yes Hx Family Stroke: No Hx Cardiac Disease: No Hx Family Diabetes: No Hx Family Cancer: Yes - breast,esophagus Physical Exam - Physical Exam General Appearance: Alert, Comfortable, Well Developed, Well Groomed, Well Hydrated, Well Nourished Eye Exam: bilateral normal Ears, Nose, Throat: hearing grossly normal, normal ENT inspection, normal pharynx Neck: non-tender, full range of motion, supple, normal inspection Respiratory: chest non-tender, lungs clear, normal breath sounds, no respiratory distress, no accessory muscle use Cardiovascular/Chest: normal peripheral pulses, regular rate, rhythm, no edema, no gallop, no JVD, no murmur Peripheral Pulses: radial,right: 2+, radial,left: 2+ Gastrointestinal/Abdominal: normal bowel sounds, non tender, soft, no organomegaly, no pulsatile mass Back Exam: normal inspection, no CVA tenderness, no vertebral tenderness Extremity: normal range of motion, non-tender, normal inspection, no pedal edema, no calf tenderness 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 12/12/19 22:33 On arrival patient was tachycardic and hypotensive. Patient was given a liter of normal saline and the tachycardia and hypotension resolved. Patient does have an elevated d-dimer. Of concern is the chance of PE. Patient with renal insufficiency and therefore unable to undergo CTA of the chest. In discussion with his PCP plan on outpatient VQ scan and follow-up in his office. I discussed this plan of care with the patient and he voices understanding and agreement with the plan of care. Plan discharge home at this time. Jason Abrams M.D. #[id number] - Results/Orders Results/Orders: EKG performed 12 December 2019 at 1931 hrs.: sinus tachycardia at 106 bpm, right bundle branch block, abnormal EKG. No EKG for comparison. EXAM DESCRIPTION: Head CLINICAL HISTORY: syncope COMPARISON: None Av ailable. TECHNIQUE: Contiguous axial images of the brain were obtained without the administration of intravenous contrast.This exam was performed according to our departmental dose-optimization program, which includes automated exposure control, adjustment of the mA and/or kV according to patient size and/or use of iterative reconstruction technique. FINDINGS: There is no acute intracranial hemorrhage or mass effect. Areas of low attenuation in the periventricular and subcortical white matter are nonspecific but suggestive of small vessel disease. There is generalized atrophy. Ventricular system is within normal limits. There is adequate wise-white matter differentiation. There is no skull fracture. Mucoperiosteal thickening of the maxillary sinuses and lobular opacity within the right maxillary sinus compatible with chronic sinusitis changes/mucoid retention cyst.. There is atherosclerosis. IMPRESSION: No acute intracranial abnormalities. Electronically signed by: Nehemiah Sol MD 12/12/2019 10:27 PM EXAM DESCRIPTION: Chest x-ray,1 View CLINICAL HISTORY: syncope COMPARISON: None FINDINGS: Cardiac silhouette is within normal limits. There is no focal parenchymal or pleural disease. There is no acute osseous process visualized. There are old right rib fractures. There is a hiatal hernia. IMPRESSION: No evidence of acute cardiopulmonary disease. Electronically signed by: Nehemiah Sol MD 12/12/2019 9:16 PM 12/12/19 19:31 IV Care:Saline Lock per Protoc QSHIFT IV Care:Saline Lock per Protoc QSHIFT Telemetry .ONCE Telemetry ONCE Sodium Chloride 0.9% (Flush) [Saline Flush Syringe] 3 ml IV PRN PRN 12/12/19 19:32 Pulse Oximetry Assessment DAILY 12/12/19 19:45 EKG STAT EKG STAT 12/12/19 20:10 URINALYSIS Stat 12/13/19 09:00 Pulse Ox Daily Laboratory Results - last 24 hr 12/12/19 12/12/19 12/12/19 19:40 19:40 19:40 WBC 3.5 L RBC 3.96 L Hgb 10.6 L Hct 32.9 L MCV 83.2 MCH 26.8 L MCHC 32.2 L RDW 21.1 H Plt Count 306 MPV 7.2 L Absolute Neuts (auto) 1.70 L Absolute Lymphs (auto) 0.80 L Absolute Monos (auto) 0.70 Absolute Eos (auto) 0.30 Absolute Basos (auto) 0.00 Neutrophils % 47.6 Lymphocytes % 24.0 Monocytes % 18.7 H Eosinophils % 8.9 H Basophils % 0.8 Normal RBC Morphology PT 10.1 INR 1.02 PTT (SP) 23.8 D-Dimer, Quantitative 2400.0 H* Sodium 130 L Cancelled Potassium 4.6 Cancelled Chloride 96 L Cancelled Carbon Dioxide 23 Cancelled Anion Gap 15.6 Cancelled BUN 24 H Cancelled Creatinine 2.18 H Cancelled BUN/Creatinine Ratio 11.0 Cancelled POC Glucose Random Glucose 98 Cancelled Serum Osmolality 264.8 L Cancelled Calcium 9.8 Cancelled Magnesium 2.1 Total Bilirubin 0.7 Cancelled Direct Bilirubin 0.2 Indirect Bilirubin 0.5 AST 23 Cancelled ALT 11 Cancelled Alkaline Phosphatase 59 Cancelled Creatine Kinase 56 Cancelled CK-MB (CK-2) 2.2 Cancelled CK-MB (CK-2) % Not Reportable Cancelled Troponin I < 0.02 Cancelled Serum Total Protein 6.8 Cancelled Albumin 3.9 Cancelled Globulin Cancelled Albumin/Globulin Ratio Cancelled 12/12/19 12/12/19 19:40 19:40 WBC RBC Hgb Hct MCV MCH MCHC RDW Plt Count MPV Absolute Neuts (auto) Absolute Lymphs (auto) Absolute Monos (auto) Absolute Eos (auto) Absolute Basos (auto) Neutrophils % Lymphocytes % Monocytes % Eosinophils % Basophils % Normal RBC Morphology Stain quality accept PT INR PTT (SP) D-Dimer, Quantitative Sodium Potassium Chloride Carbon Dioxide Anion Gap BUN Creatinine BUN/Creatinine Ratio POC Glucose 119 H Random Glucose Serum Osmolality Calcium Magnesium Total Bilirubin Direct Bilirubin Indirect Bilirubin AST ALT Alkaline Phosphatase Creatine Kinase CK-MB (CK-2) CK-MB (CK-2) % Troponin I Serum Total Protein Albumin Globulin Albumin/Globulin Ratio Vital Signs 12/12/19 12/12/19 12/12/19 19:24 20:01 21:00 Temperature 97.8 F Pulse Rate [ 115 H 95 H 88 Pulse Ox] Respiratory 16 16 14 Rate Blood Pressure 89/49 105/54 116/65 [Left Arm] O2 Sat by Pulse 97 92 L 93 L Oximetry 12/12/19 22:00 Temperature Pulse Rate [ 86 Pulse Ox] Respiratory 14 Rate Blood Pressure 108/61 [Left Arm] O2 Sat by Pulse 93 L Oximetry Departure - Departure Clinical Impression: Syncope and collapse, Elevated d-dimer, Dehydration, Renal insufficiency, mild Time of Disposition: 22:35 Disposition: Discharge to Home or Self Care Condition: Good Diet: resume usual diet Activity: increase activity as tolerated Referrals: Ambrose Hernandez MD [Primary Care Provider] - 1-2 Days Home Medications: Ambulatory Orders Allopurinol [Zyloprim] 300 mg PO DAILY 09/27/12 Omeprazole 20 mg PO BID 09/27/12 Cholecalciferol [Vitamin D3] 1,000 unit PO DAILY 04/20/16 Gabapentin 600 mg PO BID 11/27/16 Cyclobenzaprine HCl [Flexeril] 5 mg PO PRN PRN 10/31/19 Gabapentin 900 mg PO BEDTIME 10/31/19 Cyanocobalamin [B12] 1,000 mcg PO DAILY 11/16/19 Multiple Vitamin [Chlorocaps] 1 cap PO DAILY 11/16/19 Simvastatin [Zocor] 20 mg PO DAILY 11/16/19 Thiamine HCl [Vitamin B-1] 250 mg PO DAILY 11/16/19 Prednisone 10 mg PO DAILY 11/28/19 Allopurinol [Zyloprim] 100 mg PO 12/12/19 Lisinopril 12/12/19 Lisinopril 20 mg PO 12/12/19 Pentazocine W/ Naloxone [Pentazocine/Naloxone HCl 50-0.5 mg] 1 tab PO 12/12/19
[2019-12-12 23:27] VITALS: BP 138/77; TEMP 98.2
== END 2019-12-12 23:10 | disposition home or self-care (01) ==
LOC: ER 19:00
DX: R55 Syncope and collapse (principal); E86.0 Dehydration; R79.1 Abnormal coagulation profile; N28.9 Disorder of kidney and ureter, unspecified; I10 Essential (primary) hypertension; Z79.899 Other long term (current) drug therapy
CPT/HCPCS: 36416; 70450; 71045; 80048; 80076; 81001; 82550; 82553; 82948; 84484; 85025; 85379; 85610; 85730; 93005; A4216; J7030

== ENCOUNTER → 2019-12-19 | Outpatient (CLI) | payer OTHER ==
--- NOTE | 2019-12-20 11:05 | NM ---
EXAM DESCRIPTION: Lung Scan, Vent/Perfusion: Nuclear Medicine. CLINICAL HISTORY: 79 years Male, SYNCOPE COMPARISON: 1 normal chest x-ray December 11. TECHNIQUE: Patient given 7.7 mCi of technetium 99m macroaggregated albumin IV with gamma camera detection images of the chest in the anterior posterior lateral and bilateral oblique projections. Patient then inhaled 29.1 mCi of aerosolized technetium 99m DTPA aerosolized and gamma camera detection images with images obtained anterior posterior and bilateral oblique projections. No immediate complications. FINDINGS: Heterogeneous uptake bilaterally on ventilation and perfusion images. No segmental or lobar ventilation perfusion mismatches. Typical attenuation by the heart. No abnormal uptake/activity in the mediastinum or abdomen. Inhalation activity in the trachea. Soft tissue perfusion activity in the salivary glands. IMPRESSION: Radionuclide Ventilation/perfusion lung imaging showing low probability for acute pulmonary embolus. Heterogeneous activity most likely related to patient's age with recent chest x-ray showing senescent changes. Electronically signed by: Edson Ayoub MD 12/20/2019 11:04 AM CDT
== END ==
LOC: NM 09:00
PROVIDERS: ATTEND Family Medicine
DX: R55 Syncope and collapse (principal)
CPT/HCPCS: 78582; A9567

== ENCOUNTER → 2020-01-16 | Outpatient (CLI) | payer OTHER ==
--- NOTE | 2020-01-16 12:30 | CT ---
EXAM DESCRIPTION: Pelvis CLINICAL HISTORY: 80 years Male, LEFT TESTICULAR PAIN COMPARISON: None. FINDINGS: [address] scanning through the abdomen and pelvis was performed without contrast. Coronal and sagittal reformatted images are evaluated. Axial images show ventral bulge between diastatic rectus abdominis muscles with small bowel loops in the area constituting a small ventral hernia. Lower poles of the kidneys are unremarkable. Calcified aorta without distal aneurysm. Appendix is not seen. No bowel wall thickening in the region of the cecum or sigmoid colon. Distal ureters and bladder are negative for stones. Low position of the bladder base may indicate defect in the prostate. Clinical correlation recommended as to whether there has been previous prostate surgery. Small left hydrocele is seen on images through the scrotum. No testicular mass. No inguinal or femoral hernia. Laminectomy defects noted in the lumbar spine. Multilevel lumbar degenerative disc disease with marked facet hypertrophic changes. Advanced degenerative disease of the hips and SI joints. No hip fracture or bony destructive lesion. Sagittal images show advanced degenerative disc disease at multiple levels with vacuum disc phenomenon and endplate sclerosis. High-grade neural foraminal narrowing at multiple levels. Slight offset at the coccygeal level suggests an old fracture. Clinical history is testicular pain. On the coronal images, moderate-sized hydrocele around the left testicle is seen with thickening of the left scrotal wall compared to the right. Sono may be helpful to evaluate the scrotal contents. Fluid in the scrotal sac could be incidental hydrocele or could be related to infectious or inflammatory process such as epididymitis or orchitis. No enlargement of the testicle to suggest a malignant process. No hernia into either scrotal sac. Coronal images show degenerative leftward curvature of the lumbar spine. IMPRESSION: Left scrotal hydrocele with thickening of the left scrotal wall. See above. Mild midline ventral bulge or hernia. Advanced degenerative disc disease of the lumbar spine. This exam was performed according to our departmental dose-optimization program, which includes automated exposure control, adjustment of the mA and/or kV according to patient size and/or use of iterative reconstruction technique. Electronically signed by: Zechariah Garza MD 01/16/2020 12:28 PM CDT
== END | disposition home or self-care (01) ==
LOC: CT 07:43
PROVIDERS: ATTEND Family Medicine
DX: N50.812 Left testicular pain (principal)

== ENCOUNTER 2020-02-14 20:27 | Emergency (ER) | payer OTHER ==
--- NOTE | 2020-02-14 20:43 | ED.PDOC ---
History of Present Illness - General Chief Complaint: GI Problem Stated Complaint: constipation, hemorrhoid bleeding Time Seen by Provider: 02/14/20 20:28 - History of Present Illness Initial Comments: 80 yo male comes with c/c of constipation. states he feels like he has to go, but can't. Is on chronic norco for chronic pain. Has tried OTC stool softners without benefit. eap consultant tried to give laxative but states it was too hard. Denies N/V. states he notice blood today when he was straining. pain in rectum, but distinct abdominal pain. no fever. denies dysuria. Does have BPH. Review of Systems - Review of Systems Constitutional: Denies: chills, fever EENTM: Denies: blurred vision, ear pain, mouth pain Respiratory: Denies: cough, short of breath Cardiology: Denies: chest pain, palpitations Gastrointestinal/Abdominal: States: abdominal pain, constipation. Denies: diarrhea, nausea, vomiting Genitourinary: Denies: discharge, dysuria, frequency, hematuria Musculoskeletal: States: joint pain - chronic Skin: Denies: rash Neurological: Denies: headache, numbness, paresthesia, tremors, weakness Endocrine: Denies: increased hunger, increased thirst, increased urine, unexplained weight gain, unexplained weight loss Hematologic/Lymphatic: Denies: blood clots, easy bleeding, easy bruising Past Medical History (General) - Patient Medical History Hx Seizures: No Hx Stroke: No Hx Dementia: No Hx Asthma: No Hx of COPD: No Hx Cardiac Disorders: No Hx Congestive Heart Failure: No Hx Pacemaker: No Hx Hypertension: Yes Hx Thyroid Disease: No Hx Diabetes: No Hx Gastroesophageal Reflux: Yes Hx Renal Disease: No Hx Cancer: No Hx of HIV: No Hx Hepatitis C: No Hx MRSA: No - Vaccination History Hx Tetanus, Diphtheria Vaccination: No Hx Influenza Vaccination: No Hx Pneumococcal Vaccination: No - Social History Hx Tobacco Use: No Hx Chewing Tobacco Use: No Hx Alcohol Use: No Hx Substance Use: No Hx Substance Use Treatment: No Hx Depression: No Hx Physical Abuse: No Hx Emotional Abuse: No Hx Suspected Abuse: No - Female History Patient : No Family Medical History - Family History Mother Family History: Unknown Living Status: Hx Family Asthma: No Hx Family Congestive Heart Failure: No Hx Family Hypertension: Yes Hx Family Stroke: No Hx Cardiac Disease: No Hx Family Diabetes: No Hx Family Cancer: Yes - breast,esophagus Physical Exam - Physical Exam General Appearance: Alert, Comfortable, No apparent distress, Well Developed, Well Groomed, Well Hydrated, Well Nourished Eyes, Ears, Nose, Throat Exam: PERRL/EOMI, normal ENT inspection Neck: non-tender, full range of motion, supple, normal inspection Respiratory: chest non-tender, lungs clear, normal breath sounds, no respiratory distress, no accessory muscle use Cardiovascular/Chest: normal peripheral pulses, regular rate, rhythm, no edema, no gallop, no JVD, no murmur Peripheral Pulses: 2+ Gastrointestinal/Abdominal: normal bowel sounds, non tender, soft, no organomegaly, no pulsatile mass Rectal Exam: normal exam, normal rectal tone, heme negative stool, other - internal hemorrhoids, not bleeding, no blood noted, small anal fissure noted. stool is soft, no evidence of inpaction. 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 patient given oil enema. 02/14/20 22:18 wbc shows Hgb higher than baseline at 11. leukopenia. Low Na w hich is chronic. Kidney function improved when compared to previous blood work. The data reviewed when caring for this patient included: nurse notes, prior records, etc. The history and assessments from nurses notes were reviewed and considered, and the patient's home medication list was also reviewed and considered. My assessment and the results of testing completed here in the ED were discussed with the patient/family. All questions were answered, and they express understanding of my assessment and the plan. They have been instructed to return if their symptoms worsen, and have been asked to follow up with their primary care physician to recheck today's presenting complaint. return precautions given. I have reviewed medication, benefits, alternatives and side effects. Patient decided to proceed with medication.VSS, patient discharged home in stable conditionwith care advocate. Yamilex Erwin DO #[id number] - Results/Orders Results/Orders: Laboratory Results WBC 3.2 K/mm3 (4.8-10.8) L 02/14/20 21:50 RBC 3.69 M/mm3 (4.70-6.10) L 02/14/20 21:50 Hgb 11.0 gm/dL (14.0-18.0) L 02/14/20 21:50 Hct 32.3 % (42.0-52.0) L 02/14/20 21:50 MCV 87.7 fl (80.0-94.0) 02/14/20 21:50 MCH 29.9 pg (27.0-31.0) 02/14/20 21:50 MCHC 34.1 g/dL (33.0-37.0) 02/14/20 21:50 RDW 16.9 % (11.5-14.5) H 02/14/20 21:50 Plt Count 181 K/mm3 (130-400) 02/14/20 21:50 MPV 7.6 fl (7.40-10.4) 02/14/20 21:50 Absolute Neuts (auto) 2.20 K/uL (1.8-6.8) 02/14/20 21:50 Absolute Lymphs (auto) 0.40 K/uL (1.0-3.4) L 02/14/20 21:50 Absolute Monos (auto) 0.50 K/uL (0.2-0.8) 02/14/20 21:50 Absolute Eos (auto) 0.10 K/uL (0.0-0.4) 02/14/20 21:50 Absolute Basos (auto) 0.00 K/uL (0.0-0.1) 02/14/20 21:50 Neutrophils % 68.5 % (42.0-78.0) 02/14/20 21:50 Lymphocytes % 12.5 % (20.0-50.0) L 02/14/20 21:50 Monocytes % 15.1 % (2.0-9.0) H 02/14/20 21:50 Eosinophils % 3.1 % (1.0-5.0) 02/14/20 21:50 Basophils % 0.8 % (0.0-2.0) 02/14/20 21:50 Sodium 128 mmol/L (135-145) L 02/14/20 21:50 Potassium 3.8 mmol/L (3.6-5.0) 02/14/20 21:50 Chloride 91 mmol/L (101-111) L 02/14/20 21:50 Carbon Dioxide 24 mmol/L (21-31) 02/14/20 21:50 Anion Gap 16.8 (12-18) 02/14/20 21:50 BUN 19 mg/dL (7-18) H 02/14/20 21:50 Creatinine 1.40 mg/dL (0.6-1.3) H 02/14/20 21:50 BUN/Creatinine Ratio 13.6 (10-20) 02/14/20 21:50 Random Glucose 104 mg/dL (70-105) 02/14/20 21:50 Serum Osmolality 259.6 mOsm/L (275-295) L 02/14/20 21:50 Calcium 9.2 mg/dL (8.4-10.2) 02/14/20 21:50 Total Bilirubin 1.1 mg/dL (0.2-1.0) H 02/14/20 21:50 AST 22 IU/L (10-42) 02/14/20 21:50 ALT 13 IU/L (10-60) 02/14/20 21:50 Alkaline Phosphatase 76 IU/L (42-121) 02/14/20 21:50 Serum Total Protein 6.5 gm/dL (6.4-8.2) 02/14/20 21:50 Albumin 3.8 g/dl (3.2-5.5) 02/14/20 21:50 Globulin 2.7 gm/dL (2.3-3.5) 02/14/20 21:50 Albumin/Globulin Ratio 1.4 (1.1-1.9) 02/14/20 21:50 TSH 0.79 uIU/mL (0.34-5.60) 02/14/20 21:50 Departure - Departure Clinical Impression: Anal fissure, Hyponatremia Constipation Qualifiers: Constipation type: drug induced constipation Qualified Code(s): K59.03 - Drug induced constipation Time of Disposition: 21:21 Disposition: Discharge to Home or Self Care Condition: Fair Departure Forms: ED Discharge - Pt. Copy, Patient Portal Self Enrollment Instructions: Constipation in Adults, Anal Fissure, Dealing with Constipation from the Drugs You Take Referrals: Ambrose Hernandez MD [Primary Care Provider] - 1 Week Prescriptions: Hydrocort 2.5% Crm (Anusol Hc) [Anusol-HC Cream] 1 applic OH BID PRN #1 tube PRN Reason: Rectal Pain Or Itching Glycerin (Laxative) [Fleet Liquid Glycerin Sup] 5.4 gm OH DAILY PRN #5 each PRN Reason: Constipation Home Medications: Ambulatory Orders RX: Allopurinol [Zyloprim] 300 mg PO DAILY 09/27/12 RX: Omeprazole 20 mg PO BID 09/27/12 RX: Cholecalciferol [Vitamin D3] 1,000 unit PO DAILY 04/20/16 RX: Gabapentin 600 mg PO BID 11/27/16 RX: Cyclobenzaprine HCl [Flexeril] 5 mg PO PRN PRN 10/31/19 RX: Gabapentin 900 mg PO BEDTIME 10/31/19 Cyanocobalamin [B12] 1,000 mcg PO DAILY 11/16/19 Multiple Vitamin [Chlorocaps] 1 cap PO DAILY 11/16/19 Simvastatin [Zocor] 20 mg PO DAILY 11/16/19 Thiamine HCl [Vitamin B-1] 250 mg PO DAILY 11/16/19 RX: Prednisone 10 mg PO DAILY 11/28/19 Allopurinol [Zyloprim] 100 mg PO 12/12/19 Lisinopril 12/12/19 Pentazocine W/ Naloxone [Pentazocine/Naloxone HCl 50-0.5 mg] 1 tab PO 12/12/19 RX: Lisinopril 20 mg PO 12/12/19 Glycerin (Laxative) [Fleet Liquid Glycerin Sup] 5.4 gm OH DAILY PRN #5 each 02/14/20 Hydrocort 2.5% Crm (Anusol Hc) [Anusol-HC Cream] 1 applic [place] BID PRN #1 tube 02/14/20 Additional Instructions: Consider discussing medications such as relistor or Symproic for constipation if symptoms continue with your primary care physician.
[2020-02-14] MEDS ORDERED: MINERAL OIL 133 ML BTTL PR ONE (20:53)
--- NOTE | 2020-02-14 21:15 | RAD ---
EXAM DESCRIPTION: XR ABDOMEN 2 VIEW CLINICAL HISTORY: constipation, abd pain TECHNIQUE: Two views of the abdomen are submitted. COMPARISON: None available for comparison FINDINGS: Bowel: Moderate stool throughout the majority of the large bowel. Gas is seen throughout the large bowel to the level of the rectum. No dilation. Calcifications: None Bones: Lumbar levoscoliosis and moderate to severe multilevel spondylosis. Remote bilateral rib fractures. Lung bases: Moderate hiatal hernia. No focal consolidation. IMPRESSION: Nonobstructive bowel gas pattern. Moderate stool. Electronically signed by: Tashia Amor MD 02/14/2020 9:14 PM CDT
[2020-02-14 21:46] VITALS: O2SAT 91
[2020-02-14 22:43] VITALS: BP 163/87; TEMP 97.9
--- NOTE | 2020-02-15 10:52 | MRI ---
EXAM DESCRIPTION: Thoracic Spine w/o Contrast: Magnetic Resonance Imaging. CLINICAL HISTORY: SPONDYLOSIS COMPARISON: CT scan cervical spine October 2019 and MRI scan cervical spine November 2018. TECHNIQUE: Multiplanar, multiple standard sequences, non contrast MRI, thoracic spine. FINDINGS: Narrowing of the disc spaces at T5-T6, T6-T7, T7-T8, T8-T9, and T9-T10. The included discs are desiccated but no significant bulging or herniation. Mild canal narrowing at these levels and lateral mild to moderate foraminal narrowing. No evidence of significant nerve impingement. T11-T12: Anterior disc bulge with minimal desiccation. Anterior endplate ridging. Left side spondylosis and disc osteophyte bulge impressing on the medial aspect of the left hemidiaphragmatic roque. Bilateral facet arthrosis and hypertrophy and bilateral foraminal narrowing. T10-T11 disc space maintained with heterogeneous desiccated signal. Minimal posterior bulge. Anterior right side spur formation. Bilateral facet hypertrophy, more severe on the left with near stenosis of the left foramen from facet arthrosis. Also canal narrowing. T9-T10 disc desiccation with disc space maintained. Anterior bulging. Mild endplate reactive changes. Moderate right foraminal narrowing secondary to facet arthrosis and hypertrophy. Narrowing of the transverse diameter of the canal but no canal stenosis. C7-T1 disc down to T3-T4 disc desiccated with no significant bulging. Facet arthrosis and foraminal narrowing but no stenosis and no canal stenosis. T4-T5 disc normal signal. Disc space preserved. Canal and foramina are patent. Facet joints are unremarkable. Incidentally noted on the law examiner image is hypertrophic joint capsule and callus formation from prior C2 odontoid fracture. The posterior margin of this process is impressing on the ventral cord just below the foramen magnum with posterior displacement. Correlate for symptoms related to cord compression. Appears stable since the prior MRI and CT scans. Conus terminates below the T12-L1 disc space, below the inferior limit of the study. Cord with normal signal, no compression. No significant scoliosis. Paravertebral soft tissues are unremarkable. Normal marrow signal in the remaining vertebral bodies and the posterior elements. Vertebral bodies are not compressed at any level. IMPRESSION: 1. Multilevel disc desiccation and disc space loss, endplate spondylosis and hypertrophy, facet arthrosis, unilateral or bilateral, with hypertrophy. 2. Near stenosis of the left foramen at T10-T11 from facet hypertrophy. 3. Atlantoaxial arthrosis and callus formation from prior odontoid fracture of C2 demonstrating mild mass effect on the ventral cord just below the foramen magnum. Appears stable compared to prior imaging studies. Electronically signed by: Edson Ayoub MD 02/15/2020 10:50 AM CDT
== END 2020-02-14 22:43 | disposition home or self-care (01) ==
LOC: ER 20:27
DX: K59.03 Drug induced constipation (principal); K60.2 Anal fissure, unspecified; E87.1 Hypo-osmolality and hyponatremia; G89.29 Other chronic pain; I10 Essential (primary) hypertension; K21.9 Gastro-esophageal reflux disease without esophagitis; Z79.891 Long term (current) use of opiate analgesic

== ENCOUNTER → 2020-05-14 | Outpatient (CLI) | payer OTHER ==
--- NOTE | 2020-05-14 15:07 | RAD ---
EXAM DESCRIPTION: Radiographs of the left Shoulder:XR/CR/DR CLINICAL HISTORY: PAIN IN LEFT SHOULDER COMPARISON: None TECHNIQUE: Three views. Internal and External rotation. Scapular "Y" image.. Axillary view. FINDINGS: No fracture left shoulder. Normal bone density. AC joint widened with marginal spurs. Possible prior distal clavicle resection. Down sloping of the lateral acromion. Glenohumeral joint subcortical cyst formation greater tuberosity. No abnormal radiodense objects in the soft tissues or joint spaces. Calcification in the coracoclavicular ligament. Decreased bone density. IMPRESSION: Finding of the left AC joint which may be related to distal clavicle resection. Downsloping lateral acromion could be contributing to rotator cuff syndrome. Degenerative subcortical cysts greater tuberosity. Decreased bone density. Electronically signed by: Edson Ayoub MD 05/14/2020 3:05 PM [facility]
== END ==
LOC: RAD 08:19
PROVIDERS: ATTEND Orthopaedic Surgery
DX: Z98.890 Other specified postprocedural states (principal); M89.9 Disorder of bone, unspecified; M85.40 Solitary bone cyst, unspecified site; M25.512 Pain in left shoulder

== ENCOUNTER 2020-06-01 06:24 | Emergency (ER) | payer MEDICARE, OTHER ==
--- NOTE | 2020-06-01 06:33 | ED.PDOC ---
History of Present Illness - General Source: patient - History of Present Illness Initial Comments: 80 yo male s/p R shoulder arthroplasty (2019) who presents with cc of R shoulder pain. Denies any acute traumas or injuries. Pain began suddenly around 5 AM that awoke him from sleep. Reports he has had similar painful episodes in the past but current episode is more severe than usual. Describes the pain as sharp stabbing pain which begins in the right posterior shoulder region and radiates to the anterior shoulder, constant, 13/10 severity at onset, has taken a total of hydrocodone 10x3 and Aleve x3 at home which has relieved the pain to currently 10/10 severity rating. Pain is worse with moderate range of motion of the shoulder. The pain occasionally radiates medially towards the lateral aspect of the neck. Denies any midline neck pain or tenderness at this time. Denies any other acute symptoms. Reports that he called his orthopedic surgeon Dr. Espinosa who recommended he come to the ED for evaluation. Pt also reports hx of previous C2 fracture and surgical repair. Takes typically hydrocodone x4 daily, Aleve x4 daily, and gabapentin for chronic pain control. <Dean Aguayo - Last Filed: 06/01/20 06:57> <Dionte Merida - Last Filed: 06/01/20 08:44> - General Time Seen by Provider: 06/01/20 06:24 - History of Present Illness Allergies/Adverse Reactions: Allergies Cephalosporins Allergy (Severe, Verified 10/31/19 10:41) Rash Penicillins Allergy (Severe, Verified 10/31/19 10:41) Rash Codeine Allergy (Intermediate, Verified 10/31/19 10:41) Other Itching Lactose Allergy (Verified 10/31/19 10:41) Morphine Allergy (Verified 10/31/19 10:41) Tetanus Toxoid Allergy (Verified 10/31/19 10:46) Tramadol Adverse Reaction (Verified 10/31/19 10:41) Other states made him have nightmares Home Medications: Ambulatory Orders Allopurinol [Zyloprim] 300 mg PO DAILY 09/27/12 Omeprazole 20 mg PO BID 09/27/12 Cholecalciferol [Vitamin D3] 1,000 unit PO DAILY 04/20/16 Gabapentin 600 mg PO BID 11/27/16 Cyclobenzaprine HCl [Flexeril] 5 mg PO PRN PRN 10/31/19 Gabapentin 900 mg PO BEDTIME 10/31/19 Cyanocobalamin [B12] 1,000 mcg PO DAILY 11/16/19 Multiple Vitamin [Chlorocaps] 1 cap PO DAILY 11/16/19 Simvastatin [Zocor] 20 mg PO DAILY 11/16/19 Thiamine HCl [Vitamin B-1] 250 mg PO DAILY 11/16/19 Prednisone 10 mg PO DAILY 11/28/19 Allopurinol [Zyloprim] 100 mg PO 12/12/19 Lisinopril 12/12/19 Lisinopril 20 mg PO 12/12/19 Pentazocine W/ Naloxone [Pentazocine/Naloxone HCl 50-0.5 mg] 1 tab PO 12/12/19 Glycerin (Laxative) [Fleet Liquid Glycerin Sup] 5.4 gm LA DAILY PRN #5 each 02/14/20 Hydrocort 2.5% Crm (Anusol Hc) [Anusol-HC Cream] 1 applic LA BID PRN #1 tube 02/14/20 Review of Systems - Review of Systems Review of Systems: 06/01/20 07:09 as per HPI All other Systems: Reviewed and Negative <Dean Aguayo - Last Filed: 06/01/20 06:57> Past Medical History (General) - Patient Medical History Hx Seizures: No Hx Stroke: No Hx Dementia: No Hx Asthma: No Hx of COPD: No Hx Cardiac Disorders: No Hx Congestive Heart Failure: No Hx Pacemaker: No Hx Hypertension: Yes Hx Thyroid Disease: No Hx Diabetes: No Hx Gastroesophageal Reflux: Yes Hx Renal Disease: No Hx Cancer: No Hx of HIV: No Hx Hepatitis C: No Hx MRSA: No - Vaccination History Hx Tetanus, Diphtheria Vaccination: No Hx Influenza Vaccination: No Hx Pneumococcal Vaccination: No - Social History Hx Tobacco Use: No Hx Chewing Tobacco Use: No Hx Alcohol Use: No Hx Substance Use: No Hx Substance Use Treatment: No Hx Depression: No Hx Physical Abuse: No Hx Emotional Abuse: No Hx Suspected Abuse: No - Female History Patient : No <Dean Aguayo - Last Filed: 06/01/20 06:57> Family Medical History - Family History Mother Family History: Unknown Living Status: Hx Family Asthma: No Hx Family Congestive Heart Failure: No Hx Family Hypertension: Yes Hx Family Stroke: No Hx Cardiac Disease: No Hx Family Diabetes: No Hx Family Cancer: Yes - breast,esophagus <Dean Aguayo - Last Filed: 06/01/20 06:57> Physical Exam - Physical Exam General Appearance: Alert, Comfortable, No apparent distress Eyes, Ears, Nose, Throat Exam: normal ENT inspection Neck: non-tender, full range of motion, supple, normal inspection Cardiovascular/Respiratory: regular rate, rhythm, no M/R/G, normal peripheral pulses, normal breath sounds Abdominal Exam: non-tender, no organomegaly Back Exam: normal inspection Shoulder Exam: normal inspection, no evidence of injury, soft tissue tenderness - moderate to posterior & anterior shoulder. ROM moderately limited all directions. Strength/sensation grossly intact throughout Elbow/Forearm Exam: normal inspection Wrist Exam: normal inspection Hand Exam: normal inspection Neuro/Tendon: normal sensation, normal motor functions Mental Status: alert, oriented x 3 Skin Exam: normal color <Dean Aguayo - Last Filed: 06/01/20 06:57> Progress - Progress Progress: 06/01/20 07:10 Acute on chronic R shoulder pain -suspect acute flare of chronic condition - osteoarthritis AC joint, nerve impingement, etc... Consider also hardware loosening, rotator cuff injury, muscle spasm, other -obtain XR imaging R shoulder, basic labs, place PIV, Fentanyl 50 mcg IV (pt states has tolerated well in past), reassess -Hand off given to Dr. Merida at shift change who will f/u results and pain control. Dr. Espinosa notified who agrees with plan. Dean Aguayo MD Billing #[id number] <Dean Aguayo - Last Filed: 06/01/20 06:57> - Progress Progress: 06/01/20 08:40 Patient reassessed, feeling better currently. Discussed home medication regimen, will continue current outpatient medications. <Dionte Merida - Last Filed: 06/01/20 08:44> Departure <Dean Aguayo - Last Filed: 06/01/20 06:57> - Departure Time of Disposition: 08:43 Diet: resume usual diet Activity: increase activity as tolerated <Dionte Merida - Last Filed: 06/01/20 08:44> - Departure Clinical Impression: Chronic right shoulder pain Disposition: Discharge to Home or Self Care Condition: Good Instructions: Shoulder Sprain (DC) Referrals: Ambrose Hernandez MD [Primary Care Provider] - 1-2 Weeks Marvin Espinosa MD [Active Staff] - 1-2 Weeks Home Medications: Ambulatory Orders Allopurinol [Zyloprim] 300 mg PO DAILY 09/27/12 Omeprazole 20 mg PO BID 09/27/12 Cholecalciferol [Vitamin D3] 1,000 unit PO DAILY 04/20/16 Gabapentin 600 mg PO BID 11/27/16 Cyclobenzaprine HCl [Flexeril] 5 mg PO PRN PRN 10/31/19 Gabapentin 900 mg PO BEDTIME 10/31/19 Cyanocobalamin [B12] 1,000 mcg PO DAILY 11/16/19 Multiple Vitamin [Chlorocaps] 1 cap PO DAILY 11/16/19 Simvastatin [Zocor] 20 mg PO DAILY 11/16/19 Thiamine HCl [Vitamin B-1] 250 mg PO DAILY 11/16/19 Prednisone 10 mg PO DAILY 11/28/19 Allopurinol [Zyloprim] 100 mg PO 12/12/19 Lisinopril 12/12/19 Lisinopril 20 mg PO 12/12/19 Pentazocine W/ Naloxone [Pentazocine/Naloxone HCl 50-0.5 mg] 1 tab PO 12/12/19 Glycerin (Laxative) [Fleet Liquid Glycerin Sup] 5.4 gm LA DAILY PRN #5 each 02/14/20 Hydrocort 2.5% Crm (Anusol Hc) [Anusol-HC Cream] 1 applic LA BID PRN #1 tube 02/14/20
[2020-06-01] MEDS ORDERED: SODIUM CHLORIDE 0.9% (FLUSH) 10 ML SYG IV PRN (06:55)
[2020-06-01] MEDS ORDERED: fentaNYL CITRATE INJ 50 MCG/ML 2 ML AMP IV ONE (06:57)
[2020-06-01] MEDS ORDERED: METHOCARBAMOL 750 MG TAB PO ONE (07:29)
--- NOTE | 2020-06-01 08:23 | RAD ---
EXAM: Shoulder,Right 2 or More Views CLINICAL INDICATION: Right shoulder pain COMPARISON: 10/31/2019 FINDINGS: 3 views of the right shoulder reveal surgical changes from glenohumeral arthroplasty. There is no fracture, dislocation, abnormal periprosthetic lucency or bony destructive process. Old healed rib fractures are seen on the right. IMPRESSION: No fracture or acute process. Electronically signed by: Germán Montano MD 06/01/2020 8:[address] [facility]
[2020-06-01 09:08] VITALS: BP 140/86; TEMP 97.6; O2SAT 97
== END 2020-06-01 08:50 | disposition home or self-care (01) ==
LOC: ER 06:24
DX: M25.511 Pain in right shoulder (principal); G89.29 Other chronic pain; I10 Essential (primary) hypertension; K21.9 Gastro-esophageal reflux disease without esophagitis; Z79.899 Other long term (current) drug therapy; Z88.5 Allergy status to narcotic agent; Z88.7 Allergy status to serum and vaccine; Z88.0 Allergy status to penicillin; Z88.1 Allergy status to other antibiotic agents; Z87.81 Personal history of (healed) traumatic fracture; Z98.890 Other specified postprocedural states
CPT/HCPCS: 36415; 73030; 80048; 85025; J3010

== ENCOUNTER → 2020-07-22 | Outpatient (CLI) | payer MEDICARE ==
--- NOTE | 2020-07-22 10:13 | RAD ---
EXAM DESCRIPTION: Pelvis (accession [id number]), Hip,Right 2 Views (accession [id number]) CLINICAL HISTORY: 80 years Male, PAIN IN RIGHT HIP COMPARISON: Radiographs of the pelvis and right hip 10/31/2019 TECHNIQUE: 2 view radiograph of the right hip and single view radiograph of the pelvis. IMPRESSION: Partially obscured sacrum and coccyx by overlying bowel. No acute displaced fracture. No dislocation. Moderate arthrosis of the right hip. Moderate subchondral sclerosis along the acetabular roof. There appears to be some degree of cam deformity of the anterolateral right femoral neck. Moderate arthrosis of the left hip. Lumbar spondylosis. Pelvic phleboliths. Electronically signed by: Gera Powers MD 07/22/2020 10:11 AM [facility]
--- NOTE | 2020-07-22 10:13 | RAD ---
EXAM DESCRIPTION: Pelvis (accession [id number]), Hip,Right 2 Views (accession [id number]) CLINICAL HISTORY: 80 years Male, PAIN IN RIGHT HIP COMPARISON: Radiographs of the pelvis and right hip 10/31/2019 TECHNIQUE: 2 view radiograph of the right hip and single view radiograph of the pelvis. IMPRESSION: Partially obscured sacrum and coccyx by overlying bowel. No acute displaced fracture. No dislocation. Moderate arthrosis of the right hip. Moderate subchondral sclerosis along the acetabular roof. There appears to be some degree of cam deformity of the anterolateral right femoral neck. Moderate arthrosis of the left hip. Lumbar spondylosis. Pelvic phleboliths. Electronically signed by: Gera Powers MD 07/22/2020 10:11 AM [facility]
--- NOTE | 2020-07-22 12:20 | RAD ---
EXAM DESCRIPTION: Lumbar Spine 3 Views: CR/DR/x-ray. CLINICAL HISTORY: 80 years Male LOWER BACK PAIN COMPARISON: Noncontrast MRI scan lumbar spine September 2019. TECHNIQUE: 3 Views lumbar spine. AP Lateral lumbosacral lateral spot L5-S1. FINDINGS: Lumbar type vertebra: 5. Transitional vertebrae: None. Disc spaces: Narrowing with endplate spurs and endplate sclerosis at every level. Less involvement at L3-L4. Marked narrowing L5-S1, L1-L2 and L2-L3. Facet joints: Arthrosis in the lower joints. Evaluation is difficult due to decreased bone density Compression deformities: Compression of the right aspect of the L2 vertebral body. Bone Density: Decreased. Alignment: Migration/subluxation of the L2 vertebral body to the left on the L1 vertebral body. L1- L3 levoscoliosis. L3- S1 dextro scoliosis.. Abdomen: Nonspecific bowel gas pattern. IMPRESSION: Compression of the right side of the L2 vertebral body with spondylosis at L1-L2 and L2-L3 resulting in subluxation/migration of the L2 vertebral body to the left of the L1 vertebral body and L1-L3 levoscoliosis. Spondylosis also at L4-L5 and L5-S1. Multiple levels of facet arthrosis. Decreased bone density. Electronically signed by: Edson Ayoub MD 07/22/2020 12:18 PM [facility]
== END ==
LOC: RAD 08:57
PROVIDERS: ATTEND Orthopaedic Surgery
DX: M16.0 Bilateral primary osteoarthritis of hip (principal); M47.896 Other spondylosis, lumbar region; I86.2 Pelvic varices; I87.8 Other specified disorders of veins; M95.8 Other specified acquired deformities of musculoskeletal system; S33.110A Subluxation of L1/L2 lumbar vertebra, initial encounter; M41.86 Other forms of scoliosis, lumbar region; M85.88 Other specified disorders of bone density and structure, other site